=== PATIENT | female | born 1985 | race Two or more races ===

== ENCOUNTER 2020-04-06 14:09 | Outpatient (REF) | payer MEDICAID, SELFPAY | END 2020-04-06 14:10 | disposition home or self-care (01) | LOC: HO.LAB 14:09 | PROVIDERS: Visit Provider Internal Medicine | DX: Z20.828 Contact with and (suspected) exposure to other viral communicable diseases (principal) | CPT/HCPCS: C9803; U0003 ==

== ENCOUNTER → 2020-05-14 14:55 | Outpatient (BNVA) | payer MEDICAID, SELFPAY | PROVIDERS: PCP Internal Medicine Geriatric Medicine; Referring Provider Internal Medicine Geriatric Medicine; Visit Provider Obstetrics & Gynecology | DX: Z76.89 Persons encountering health services in other specified circumstances (principal) ==

== ENCOUNTER 2020-06-08 15:33 | Outpatient (REF) | payer MEDICAID, SELFPAY | END 2020-06-08 15:34 | disposition home or self-care (01) | LOC: HO.LAB 15:33 | PROVIDERS: PCP Internal Medicine Geriatric Medicine; Visit Provider Obstetrics & Gynecology | DX: R87.612 Low grade squamous intraepithelial lesion on cytologic smear of cervix (LGSIL) (principal) | CPT/HCPCS: 57454 ==

== ENCOUNTER 2021-01-04 15:08 | Outpatient (REF) | payer MEDICAID, SELFPAY ==
--- NOTE | ~2021-01-04 | XR_ITS ---
EXAMINATION: XR HAND, RIGHT CLINICAL INFORMATION: Pain in right hand COMPARISON: Right hand radiograph from 12/11/2017. TECHNIQUE: PA, lateral, and oblique views of the right hand. FINDINGS: No acute visible fracture or dislocation. Mild negative ulnar variance. Joint spaces and alignment are maintained. Soft tissues are unremarkable. XR/XR hand RT min 3V IMPRESSION: 1. No acute visible fracture or dislocation. 2. Mild negative ulnar variance.
== END 2021-01-04 15:09 | disposition home or self-care (01) ==
LOC: HO.XRAY 15:08
PROVIDERS: Absent Provider Internal Medicine Geriatric Medicine; PCP Internal Medicine Geriatric Medicine; Visit Provider Internal Medicine
DX: M79.641 Pain in right hand (principal)
CPT/HCPCS: 73130

== ENCOUNTER 2021-06-11 09:13 | Outpatient (REF) | payer OTHER, MEDICAID, SELFPAY ==
[2021-06-11 13:38] LABS: CT PCR NOT DETECTED (Not Detect.); NG PCR NOT DETECTED (Not Detect.)
[2021-06-12 09:10] LABS: BV Int Neg Control Negative (Negative); BV Int Pos Control Positive (Positive)
[2021-06-15 04:01] LABS: HPV 16 RNA NOT DETECTED (NOT DETECTED); HPV mRNA E6/E7 rflx Detected (Not Detected)
== END 2021-06-11 09:14 | disposition home or self-care (01) ==
LOC: HO.LAB 09:13
PROVIDERS: Visit Provider Advanced Practice Midwife
DX: Z01.411 Encounter for gynecological examination (general) (routine) with abnormal findings (principal); Z11.51 Encounter for screening for human papillomavirus (HPV); N89.8 Other specified noninflammatory disorders of vagina; Z20.2 Contact with and (suspected) exposure to infections with a predominantly sexual mode of transmission; R87.612 Low grade squamous intraepithelial lesion on cytologic smear of cervix (LGSIL)
CPT/HCPCS: 87480; 87491; 87510; 87591; 87624; 87625; 87660; 88142

== ENCOUNTER 2021-07-16 13:00 | Outpatient (REF) | payer OTHER, MEDICAID, SELFPAY | END 2021-07-16 13:01 | disposition home or self-care (01) | LOC: HO.LAB 13:00 | PROVIDERS: PCP Internal Medicine Geriatric Medicine; Visit Provider Obstetrics & Gynecology | DX: R87.612 Low grade squamous intraepithelial lesion on cytologic smear of cervix (LGSIL) (principal) | CPT/HCPCS: 57454; 88305; 88342; 88360 ==

== ENCOUNTER → 2021-07-31 14:55 | Outpatient (BNVA) | payer OTHER, MEDICAID, SELFPAY | PROVIDERS: Visit Provider Obstetrics & Gynecology ==

== ENCOUNTER → 2021-08-06 15:26 | Outpatient (BNVA) | payer OTHER, MEDICAID, SELFPAY | PROVIDERS: PCP Internal Medicine Geriatric Medicine; Visit Provider Obstetrics & Gynecology ==

== ENCOUNTER 2021-08-15 11:55 | Day surgery (SDC) | payer OTHER, MEDICAID, SELFPAY ==
[2021-08-09 14:39] VITALS: BMI 36.2
--- NOTE | 2021-08-14 09:43 | P.CONAN_ITS ---
Documented by User: Noni Yarbrough NP 08/14/21 09:44 HPI - Anesthesia Eval Consult details Narrative: 36yo F for LEEP PMFSH Active Problems Active Problems: All Active Problems (Updated 08/09/21 @ 14:38 by Felicia Marroquin RN) Encounter for annual routine gynecological examination (Acute) Vaginal discharge (Acute) LGSIL on Pap smear of cervix (Acute) DANIEL II (cervical intraepithelial neoplasia II) (Acute) LGSIL on Pap smear of cervix (Acute) Past Medical History Medical History (Updated 08/09/21 @ 14:38 by Felicia Marroquin RN) COVID-19 vaccine series completed History of COVID-19 LGSIL on Pap smear of cervix Migraine without aura Mild acid reflux Family History Family History Father Diabetes Mother CVD (cardiovascular disease) Arthritis Surgical History Surgical History (Updated 08/09/21 @ 14:33 by Felicia Marroquin RN) H/O tubal ligation History of sleeve gastrectomy Hx of cholecystectomy Hx of colposcopy with cervical biopsy Social History Social History Are you a primary director career services to a significant other at home: No Do you presently have visiting nurse or other home services: No Alcohol intake: never Patient Tobacco Use Status: Never used Tobacco Use of substances other than those prescribed or required for medical reasons: No Have you been hit, kicked, punched, or otherwise hurt by someone within the past year? If so, by whom?: No Are you DNR?: No Advance Directives: No Advance Directives Information Provided: Yes (brochure mailed) Advance Directives on File: No Recently lost weight without trying: No Eating poorly because of decreased appetite: No Nutrition Risks: No Nutritional Risk Patient : No FDLMP: 07/18/21 : No Poor oral hygiene: No Sexual orientation: Straight/Heterosexual Gender identity: Female Meds Allergies Allergy/AdvReac Type Severity Reaction Status Date / Time No Known Allergies Allergy Verified 08/15/21 13:01 [No Known Allergies*] Home Medications Medication Instructions Recorded Confirmed Last Taken Type amitriptyline 10 mg tablet 10 mg PO BEDTIME 05/14/20 08/09/21 Unknown History pantoprazole 40 mg tablet,delayed 40 mg PO DAILY 05/14/20 08/15/21 08/15/21 History release Exam Exam Date and Time: August 14, 2021 0943 Height,Weight and Vital Signs: Height 5 ft 2 in Weight 89.811 kg Assessment and Plan Assessment Anesthesia Assessment: Chart Reviewed Documented by User: Danya Edwards MD 08/15/21 13:19 PMF Past Medical History Medical History (Updated 08/09/21 @ 14:38 by Felicia Marroquin, LILLY) COVID-19 vaccine series completed History of COVID-19 LGSIL on Pap smear of cervix Migraine without aura Mild acid reflux Family History Family History Father Diabetes Mother CVD (cardiovascular disease) Arthritis Family history of problems with anesthesia: No Surgical History Surgical History (Updated 08/09/21 @ 14:33 by Felicia Marroquin RN) H/O tubal ligation History of sleeve gastrectomy Hx of cholecystectomy Hx of colposcopy with cervical biopsy History of Problems with Anesthesia: No Social History Social History Are you a primary director career services to a significant other at home: No Do you presently have visiting nurse or other home services: No Alcohol intake: never Patient Tobacco Use Status: Never used Tobacco Use of substances other than those prescribed or required for medical reasons: No Have you been hit, kicked, punched, or otherwise hurt by someone within the past year? If so, by whom?: No Are you DNR?: No Advance Directives: No Advance Directives Information Provided: Yes (brochure mailed) Advance Directives on File: No Recently lost weight without trying: No Eating poorly because of decreased appetite: No Nutrition Risks: No Nutritional Risk Patient : No FDLMP: 07/18/21 : No Poor oral hygiene: No Sexual orientation: Straight/Heterosexual Gender identity: Female Meds Allergies Allergy/AdvReac Type Severity Reaction Status Date / Time No Known Allergies Allergy Verified 08/15/21 13:01 [No Known Allergies*] Home Medications Medication Instructions Recorded Confirmed Last Taken Type amitriptyline 10 mg tablet 10 mg PO BEDTIME 05/14/20 08/09/21 Unknown History pantoprazole 40 mg tablet,delayed 40 mg PO DAILY 05/14/20 08/15/21 08/15/21 History release Exam Airway Mallampati Class: III TM Dist: >3cm Neck ROM: Full Assessment and Plan Assessment Anesthesia Assessment: Anesthesia Plan Discussed Final Anesthetic Review Family History of Problems with Anesthesia: No History of Problems with Anesthesia: No NPO: Yes ASA Class: II Final Preanesthetic Review: No Changes in Pt Med Stat, Meds/Allgs Chart Reviewed, Consent Obtained/Reviewed and Anes Risks/Benef Reviewed Patient Risk: Intermediate Procedure Risk: Low Anesthetic Plan Anesthetic Plan: GA Disposition: Standard PACU
[2021-08-15 12:34] VITALS: BP 117/73; PULSE 82; RESP 18; TEMP 36.7; O2SAT 99
[2021-08-15 12:38] LABS: UPreg QC Valid YES; Urine Pregnancy NEGATIVE (NEGATIVE)
[2021-08-15] MEDS: Lactated Ringers 1,000 ML 100 ML IVCONT (13:04)
--- NOTE | 2021-08-15 13:07 | MHC.SHP ---
Pre-Procedural Eval Section A Date of Service: 08/15/21 Section B Chief Complaint: Moderate cervical dysplasia Allergies: Allergies Allergy/AdvReac Type Severity Reaction Status Date / Time No Known Allergies Allergy Verified 08/15/21 13:01 [No Known Allergies*] Plan I have reviewed the history and physical and performed a pertinent physical examination on my patient. No changes have occurred unless specified.
--- NOTE | 2021-08-15 13:42 | P.BOP_ITS ---
Brief Operative Note Date of Service: 08/15/21 Pre-op diagnosis: DANIEL 2 with positive ECC Post-op diagnosis: same Procedure: LEEP CONE with post CONE ECC Surgeon: Quinton Eduardo MD Anesthesia: local and other (Paracervical block with MAC) Was an Floor Worker Transfer Bay used for this Procedure?: No Estimated blood loss (mL): 0 Pathology: other (Cervical cone, anterior cervical lip 2nd pass at 11 o'clock, post Cerv lip, Endocx, Post cone ECC) Condition: stable Disposition: other (Home)
--- NOTE | 2021-08-15 13:43 | W.PM.OPN ---
Operative Note Operative Note Date of Service: 05/11/20 Narrative: Preop diagnosis: DANIEL 2 with + ECC Operation: LEEP Cone with post cone ECC Post op diagnosis: same Anesthesia: paracervical block with MAC Complications: none Pathology: Cervical cone, 2nd pass Anterior cervical lip at 11:00 o'clock, and Posterior cervical lip with endocervix & post cone ECC QBL: minimal Procedure: The patient was put in the dorsal lithotomy position, was prepped and draped in the usual sterile fashion. A sterile speculum was inserted inside the patient vagina. Using Lugol solution the cervix with Dyed with Lugol solution to identifiy the abnormal demarcating line. 10 cc of Marcaine0.5% with epinephrine were given at 2,4 , 8, and 10 o'clock. Using a medium-size loop wire, the cervical cone was excised, this was followed by a 2nd pass anterior cervical lip at 11:00 o'clock, followed by the posterior cervical lip and endocervix, post cone ECC was done afterwards. Hemostasis was assured using cautery and Monsel solution. All instruments were taken out of the patient's vaginal cavity. the patient tolerated the procedure well and was discharged home with the following instructions: call if temperature is above 100.4, vaginal bleeding, abdominal pain or nausea or vomiting. Follow-up in the office in 2 weeks for postop visit
[2021-08-15 13:51] VITALS: BP 124/73; PULSE 91; RESP 16; TEMP 37.2; O2SAT 100
[2021-08-15 13:56] VITALS: BP 122/70; PULSE 87; RESP 16; O2SAT 100
[2021-08-15 14:01] VITALS: BP 122/70; PULSE 97; RESP 17; O2SAT 99
[2021-08-15 14:06] VITALS: BP 131/69; PULSE 94; RESP 18; O2SAT 99
[2021-08-15 14:21] VITALS: BP 125/72; PULSE 70; RESP 8; TEMP 36.4; O2SAT 100
== END 2021-08-15 14:43 | disposition home or self-care (01) ==
PROVIDERS: PCP Internal Medicine Geriatric Medicine; Visit Provider Obstetrics & Gynecology
PROC: 0UBC7ZZ Excision of Cervix, Via Natural or Artificial Opening (ICD-10-PCS; CPT 57522; principal; 2021-08-15 13:50)
DX: N87.1 Moderate cervical dysplasia (principal); Z86.16 Personal history of COVID-19; G43.909 Migraine, unspecified, not intractable, without status migrainosus; Z98.51 Tubal ligation status; Z98.84 Bariatric surgery status; Z79.899 Other long term (current) drug therapy
CPT/HCPCS: 57522; 81025; 88305; 88307; 88342; 88360; J1100; J1200; J2250; J2405; J3010

== ENCOUNTER → 2021-08-29 11:13 | Outpatient (BNVA) | payer OTHER, MEDICAID, SELFPAY | PROVIDERS: Visit Provider Obstetrics & Gynecology | DX: Z13.89 Encounter for screening for other disorder (principal) ==

== ENCOUNTER → 2021-09-09 14:58 | Outpatient (BNVA) | payer OTHER, MEDICAID, SELFPAY | PROVIDERS: PCP Internal Medicine Geriatric Medicine; Visit Provider Obstetrics & Gynecology | DX: Z13.89 Encounter for screening for other disorder (principal) ==

== ENCOUNTER 2021-09-13 11:48 | Day surgery (SDC) | payer OTHER, MEDICAID, SELFPAY ==
--- NOTE | 2021-09-12 08:52 | HO.ANESPROP2 ---
Documented by User: Noni Yarbrough NP 09/12/21 08:54 HPI - Anesthesia Eval Consult details Narrative: 36yo F for LEEP Cone with post ECC s/p LEEP 07/2021 with GA-LMA 4 PMFSH Active Problems Active Problems: All Active Problems (Updated 08/29/21 @ 12:08 by Quinton Eduardo MD) Encounter for annual routine gynecological examination (Acute) Vaginal discharge (Acute) LGSIL on Pap smear of cervix (Acute) DANIEL II (cervical intraepithelial neoplasia II) (Acute) LGSIL on Pap smear of cervix (Acute) Past Medical History Medical History COVID-19 vaccine series completed History of COVID-19 LGSIL on Pap smear of cervix Migraine without aura Mild acid reflux Family History Family History Father Diabetes Mother CVD (cardiovascular disease) Arthritis Family history of problems with anesthesia: No Surgical History Surgical History H/O tubal ligation History of sleeve gastrectomy Hx of cholecystectomy Hx of colposcopy with cervical biopsy History of Problems with Anesthesia: No Social History Social History Are you a primary critical care paramedic to a significant other at home: No Do you presently have visiting nurse or other home services: No Alcohol intake: never Patient Tobacco Use Status: Never used Tobacco Advance Directives: No Advance Directives Information Provided: Yes Sexual orientation: Straight/Heterosexual Gender identity: Female Meds Allergies Allergy/AdvReac Type Severity Reaction Status Date / Time No Known Allergies Allergy Verified 08/15/21 13:01 [No Known Allergies*] Home Medications Medication Instructions Recorded Confirmed Last Taken Type amitriptyline 10 mg tablet 10 mg PO BEDTIME 05/14/20 08/09/21 Unknown History pantoprazole 40 mg tablet,delayed 40 mg PO DAILY 05/14/20 08/15/21 08/15/21 History release Exam Exam Date and Time: September 12, 2021 0852 Assessment and Plan Assessment Anesthesia Assessment: Chart Reviewed Final Anesthetic Review Family History of Problems with Anesthesia: No History of Problems with Anesthesia: No Documented by User: Jadyn Estes MD 09/13/21 12:04 PMFSH Past Medical History Medical History COVID-19 vaccine series completed History of COVID-19 LGSIL on Pap smear of cervix Migraine without aura Mild acid reflux Family History Family History Father Diabetes Mother CVD (cardiovascular disease) Arthritis Surgical History Surgical History H/O tubal ligation History of sleeve gastrectomy Hx of cholecystectomy Hx of colposcopy with cervical biopsy Social History Social History Are you a primary critical care paramedic to a significant other at home: No Do you presently have visiting nurse or other home services: No Alcohol intake: never Patient Tobacco Use Status: Never used Tobacco Advance Directives: No Advance Directives Information Provided: Yes Sexual orientation: Straight/Heterosexual Gender identity: Female Meds Allergies Allergy/AdvReac Type Severity Reaction Status Date / Time No Known Allergies Allergy Verified 08/15/21 13:01 [No Known Allergies*] Home Medications Medication Instructions Recorded Confirmed Last Taken Type amitriptyline 10 mg tablet 10 mg PO BEDTIME 05/14/20 08/09/21 Unknown History pantoprazole 40 mg tablet,delayed 40 mg PO DAILY 05/14/20 08/15/21 08/15/21 History release Exam Airway Mallampati Class: II (Missing multiple teeth) TM Dist: >3cm Neck ROM: Full Heart: rrr Lungs: cta Assessment and Plan Assessment Anesthesia Assessment: Anesthesia Plan Discussed and Chart Reviewed Final Anesthetic Review NPO: Yes ASA Class: II Final Preanesthetic Review: No Changes in Pt Med Stat, Meds/Allgs Chart Reviewed and Consent Obtained/Reviewed Patient Risk: Intermediate Procedure Risk: Intermediate Anesthetic Plan Anesthetic Plan: GA Disposition: Standard PACU
[2021-09-13 11:58] VITALS: BMI 35.8
[2021-09-13 12:07] VITALS: BP 119/63; PULSE 87; RESP 18; TEMP 36.1; O2SAT 97
[2021-09-13 12:08] LABS: UPreg QC Valid YES; Urine Pregnancy NEGATIVE (NEGATIVE)
[2021-09-13] MEDS: Lactated Ringers 1,000 ML 100 ML IVCONT (12:40)
--- NOTE | 2021-09-13 12:49 | MHC.SHP ---
Pre-Procedural Eval Section A Date of Service: 09/13/21 The patient is an INPATIENT: No Changes since office visit: No Cold of Flu in the past 2 weeks, No New Medical Problems, No Changes in Medication and No Patient answered all questions The History & Physical has been completed within 30 days and I have reviewed it.: Yes Section B Chief Complaint: Moderate cervical dysplasia Allergies: Allergies Allergy/AdvReac Type Severity Reaction Status Date / Time No Known Allergies Allergy Verified 08/15/21 13:01 [No Known Allergies*] Plan Diagnosis/Plan: Unchanged I have reviewed the history and physical and performed a pertinent physical examination on my patient. No changes have occurred unless specified.
[2021-09-13 13:22] VITALS: BP 113/42; PULSE 92; RESP 16; TEMP 36.3; O2SAT 94
--- NOTE | 2021-09-13 13:22 | PM.OP ---
Brief Operative Note Date of Service: 09/13/21 Pre-op diagnosis: DANIEL 2 status post LEEP cone with positive margins Post-op diagnosis: same Procedure: Re-excision LEEP CONE with post CONE ECC Surgeon: Quinton Eduardo MD Anesthesia: local and other (Paracervical block) Was an Maxillofacial Prosthetics Dentist used for this Procedure?: No Estimated blood loss (mL): 0 Pathology: other (Ant+post Cerv lip, Endocx, Post cone ECC) Condition: stable Disposition: other (Home)
--- NOTE | 2021-09-13 13:23 | W.PM.OPN ---
Operative Note Operative Note Date of Service: 09/13/21 Narrative: Preop diagnosis: DANIEL 2 S post LEEP cone with positive margins Operation: Re-excision LEEP Cone with post cone ECC Post op diagnosis: same Anesthesia: paracervical block, mac Complications: none Pathology: Anterior and Posterior cervical lip with endocervix & post cone RCC QBL: minimal Procedure: The patient was put in the dorsal lithotomy position, was prepped and draped in the usual sterile fashion. A sterile speculum was inserted inside the patient vagina. Using Lugol solution the cervix with Dyed with Lugol solution to identifiy the abnormal demarcating line. 10 cc of Marcaine0.5% with epinephrine were given at 2,4 , 8, and 10 o'clock. Using a medium-size loop wire, the anterior cervical lip was excised followed by the posterior cervical lip and endocervix, post cone ECC was done afterwards. Hemostasis was assured using cautery and Monsel solution. All instruments were taken out of the patient's vaginal cavity. the patient tolerated the procedure well and was discharged home with the following instructions: call if temperature is above 100.4, vaginal bleeding, abdominal pain or nausea or vomiting. Follow-up in the office in 2 weeks for postop visit
[2021-09-13 13:27] VITALS: BP 101/65; O2SAT 96
[2021-09-13 13:32] VITALS: BP 108/69; PULSE 85; RESP 17; O2SAT 95
[2021-09-13 13:37] VITALS: BP 108/72; PULSE 84; RESP 16; O2SAT 96
[2021-09-13 13:52] VITALS: BP 113/75; PULSE 81; RESP 17; O2SAT 97
== END 2021-09-13 14:26 | disposition home or self-care (01) ==
PROVIDERS: PCP Internal Medicine Geriatric Medicine; Visit Provider Obstetrics & Gynecology
PROC: 0UBC7ZZ Excision of Cervix, Via Natural or Artificial Opening (ICD-10-PCS; CPT 57522; principal; 2021-09-13 15:00)
DX: N87.1 Moderate cervical dysplasia (principal); G43.009 Migraine without aura, not intractable, without status migrainosus; K21.9 Gastro-esophageal reflux disease without esophagitis; Z86.16 Personal history of COVID-19; Z98.51 Tubal ligation status; Z98.84 Bariatric surgery status; Z90.49 Acquired absence of other specified parts of digestive tract; Z79.899 Other long term (current) drug therapy
CPT/HCPCS: 57522; 81025; 88305; 88307; 88342; 88360; J1100; J2250; J2405; J3010

== ENCOUNTER → 2021-09-26 11:37 | Outpatient (BNVA) | payer OTHER, MEDICAID, SELFPAY | PROVIDERS: Visit Provider Obstetrics & Gynecology | DX: Z13.89 Encounter for screening for other disorder (principal) ==

== ENCOUNTER 2022-03-25 20:12 | Emergency (ER) | payer OTHER, MEDICAID, SELFPAY ==
[2022-03-25 20:18] VITALS: BP 128/70; PULSE 81; RESP 18; TEMP 36.2; BMI 37.5
--- NOTE | 2022-03-25 23:36 | ED_ITS ---
HPI - Skin/Abscess/Foreign Bdy General Chief complaint: Skin/Abscess/Foreign Body Stated complaint: Cyst Time Seen by Provider: 03/25/22 22:59 Source: patient Mode of arrival: ambulatory Limitations: no limitations History of Present Illness HPI narrative: Patient is a 36-year-old female presents to the emergency department for evaluation of pubic abscess. Onset 4 days ago. Initially popped and had pus- like drainage. Then became increasingly more painful, larger in size, and with surrounding redness. Reports a history of abscess in the past. Denies any additional skin lesions or wounds at this time. Denies fevers, chills, night sweats. Related Data Home Medications Medication Instructions Recorded Confirmed amitriptyline 10 mg tablet 10 mg PO BEDTIME 05/14/20 08/09/21 pantoprazole 40 mg tablet,delayed 40 mg PO DAILY 05/14/20 08/15/21 release Previous Rx's Medication Instructions Recorded metronidazole 500 mg tablet 500 mg PO BID 7 days #14 tabs 06/17/21 cephalexin 500 mg capsule 500 mg PO QID 7 days #28 caps 03/26/22 Allergies Allergy/AdvReac Type Severity Reaction Status Date / Time No Known Allergies Allergy Verified 08/15/21 13:01 [No Known Allergies*] Review of Systems Review of Systems: Constitutional :? Denies history of same, Denies any other sites involved, Denies IV drug use, Denies history of MRSA, Denies swollen glands, Denies injury, Denies Fever, Denies Chills, + Sig Pain, Denies Systemic symptoms Cardiovascular : No Chest Pain, No SOB Respiratory : No Dyspnea Gastrointestinal : No abdominal pain Musculoskeletal : No Joint Swelling Skin : + abscess with surrounding erythema, No skin laceration, No Foreign bodies, No spreading rash, Denies bites, Denies discharge, Neuro : No Weakness, No Numbness/tingling Psych : No SI/HI/thoughts of self injury Yes all other systems are reviewed and are negative PMFSH Past Medical History Attestation statement: The following information was validated with the patient. Source: old records reviewed Medical History COVID-19 vaccine series completed History of COVID-19 LGSIL on Pap smear of cervix Migraine without aura Mild acid reflux Surgical History H/O tubal ligation History of sleeve gastrectomy Hx of cholecystectomy Hx of colposcopy with cervical biopsy Family History Family History Father Diabetes Mother CVD (cardiovascular disease) Arthritis Social History Social History Are you a primary floor care specialist to a significant other at home: No Do you presently have visiting nurse or other home services: No Alcohol intake: never Patient Tobacco Use Status: Never used Tobacco Advance Directives: No Advance Directives Information Provided: No Sexual orientation: Straight/Heterosexual Gender identity: Female Physical Exam Vital Signs: Vital Signs: Last Vital Signs Temp 97.1 F 03/25/22 20:18 Pulse 81 03/25/22 20:18 Resp 18 03/25/22 20:18 BP 128/70 03/25/22 20:18 BMI result Body Mass Index 37.5 Appearance: Alert.?Oriented to person, place and time. No acute distress.?Normal affect. Neck: Normal inspection.? Neck supple.?? CVS: Heart sounds normal. Normal heart rate and rhythm.? Pulses normal.?? Respiratory: No respiratory distress.? Lung sounds clear to auscultation bilaterally?? Abdomen: Soft and non-tender. Normoactive bowel sounds. ? Skin: Skin warm and dry.? Normal skin color.? Positive abscess midline suprapubic region with significant surrounding erythema and warmth. Extremities: No lower extremity edema.? Neuro: Moves all extremities spontaneously. Sensation intact bilaterally. CN II- XII intact. No focal neuro deficits. Ambulates with normal steady gait. Course Course Course Narrative: Patient is a 36-year-old female presenting to the emergency department for evaluation of a cyst to suprapubic region. History physical exam consistent with abscess. No systemic toxicity, and patient is well-appearing. There is surrounding cellulitis. Not consistent with necrotizing fasciitis, myositis, DVT, osteomyelitis. Patient is now status post incision and drainage of abscess and tolerated the procedure well. No complications. No labs or imaging indicated at this time. Will discharge home with course of oral antibiotics and symptomatic treatment instructions. Discussed reasons to return to the emergency department, and follow-up with primary care provider. Patient agreeable with plan of care. Procedures Abscess I/D Site: other (Suprapubic region) Local Anesthetic: lidocaine 1% Amount of anesthesia used (mL): 3 Technique: incised with blade Irrigation: Yes Packing used?: none Discharge Plan Discharge Clinical Impression: Abscess of skin or subcutaneous tissue Patient Disposition: Home, Self-Care Instructions: Abscess (ED) Additional Instructions: As discussed, the area may continue to drain over the next few days. You have been given a new prescription for cephalexin, please complete this entire course of antibiotic. Return to emergency department any new or worsening symptoms or concerns. If you develop worsening redness, swelling, pain, pus-like discharge, fevers, chills this should be re-evaluated. Follow-up with your primary care provider as needed. Prescriptions: New cephalexin 500 mg capsule 500 mg PO QID 7 Days Qty: 28 0RF No Action metronidazole 500 mg tablet 500 mg PO BID 7 Days Qty: 14 0RF Rx Instructions: Take with food, Avoid alcohol and vinegar products amitriptyline 10 mg tablet 10 mg PO BEDTIME pantoprazole 40 mg tablet,delayed release (DR/EC) 40 mg PO DAILY Referrals: Name,[facility] [Primary Care Provider] -
[2022-03-26] VITALS: PULSE 68; RESP 18; O2SAT 98
[2022-03-26] MEDS: Lidocaine HCl 1 % MPF 5 ML VIAL SUBCUT (00:44)
[2022-03-26] MEDS: Lidocaine HCl 1 % MPF 2 ML VIAL 4 ML SUBCUT (00:45)
== END 2022-03-26 00:48 | disposition home or self-care (01) ==
PROVIDERS: Emergency Provider Emergency Medicine; PCP Internal Medicine Geriatric Medicine
DX: L02.214 Cutaneous abscess of groin (principal); Z79.899 Other long term (current) drug therapy
CPT/HCPCS: 10060; 99284

== ENCOUNTER 2022-03-27 13:33 | Outpatient (REF) | payer OTHER, MEDICAID, SELFPAY ==
[2022-04-02 19:57] LABS: HPV 16 RNA NOT DETECTED (NOT DETECTED); HPV mRNA E6/E7 rflx Detected (Not Detected)
== END 2022-03-27 13:34 | disposition home or self-care (01) ==
LOC: HO.LNP 13:33
PROVIDERS: Visit Provider Obstetrics & Gynecology
DX: Z12.4 Encounter for screening for malignant neoplasm of cervix (principal); Z11.51 Encounter for screening for human papillomavirus (HPV); N87.1 Moderate cervical dysplasia
CPT/HCPCS: 87624; 87625; 88142

== ENCOUNTER 2022-05-12 10:17 | Outpatient (REF) | payer OTHER, MEDICAID, SELFPAY | END 2022-05-12 10:18 | disposition home or self-care (01) | LOC: HO.LNP 10:17 | PROVIDERS: PCP Internal Medicine Geriatric Medicine; Visit Provider Obstetrics & Gynecology | DX: A63.0 Anogenital (venereal) warts (principal); Z32.02 Encounter for pregnancy test, result negative | CPT/HCPCS: 57456; 81025; 88305 ==

== ENCOUNTER → 2022-06-04 11:27 | Outpatient (BNVA) | payer OTHER, MEDICAID, SELFPAY | PROVIDERS: PCP Internal Medicine Geriatric Medicine; Visit Provider Obstetrics & Gynecology | DX: Z13.89 Encounter for screening for other disorder (principal) ==

== ENCOUNTER 2023-06-08 13:48 | Outpatient (REF) | payer OTHER, MEDICAID, SELFPAY ==
[2023-06-13 09:29] LABS: HPV mRNA E6/E7 rflx Not Detected (Not Detected)
== END 2023-06-08 13:49 | disposition home or self-care (01) ==
LOC: HO.LNP 13:48
PROVIDERS: PCP Internal Medicine Geriatric Medicine; Visit Provider Obstetrics & Gynecology
DX: Z01.419 Encounter for gynecological examination (general) (routine) without abnormal findings (principal); Z11.51 Encounter for screening for human papillomavirus (HPV)
CPT/HCPCS: 87624; 88142

== ENCOUNTER 2023-06-08 13:48 | Outpatient (AMB) | payer OTHER, MEDICAID, SELFPAY ==
--- NOTE | 2023-06-08 13:49 | MHC.OFFVIS ---
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 No complaints. Last Pap/HPV was negative/HPV positive, colpo negative/ECC negative [facility] Medical History DANIEL II (cervical intraepithelial neoplasia II) COVID-19 vaccine series completed History of COVID-19 Mild acid reflux Migraine without aura LGSIL on Pap smear of cervix Surgical History History of sleeve gastrectomy H/O tubal ligation Hx of colposcopy with cervical biopsy Hx of cholecystectomy Family History Father Diabetes Mother CVD (cardiovascular disease) Arthritis Social History Are you a primary lawn care professional to a significant other at home: No Do you presently have visiting nurse or other home services: No Alcohol intake: never Patient Tobacco Use Status: Never used Tobacco Sexual orientation: Straight/Heterosexual Gender identity: Female Review of Systems Const All systems reviewed & are unremarkable except as noted in HPI and below Card Reports as per HPI Resp Reports as per HPI GI Reports as per HPI and Reports no additional complaints Reports as per HPI Physical Exam Const General: cooperative, healthy appearing and comfortable Chest Chest palpation & inspection: normal inspection of the chest and normal palpation of entire chest wall Breast/axilla inspection: normal inspection of the breasts and normal inspection of the axillae Breast/axilla palpation: normal palpation of the breasts, normal palpation of the axillae and no axillary lymphadenopathy Resp Effort & Inspection: normal respiratory effort Auscultation: clear to auscultation bilaterally Percussion: percussion normal Cardio Palpation: normal PMI Rate: regular rate Rhythm: regular rhythm Heart sounds: no murmurs and no rubs Peripheral pulses: Peripheral pulses 2+ throughout GI Inspection: Yes normal to inspection Palpation (GI): Soft to palpation, nontender, no guarding, not rigid and No hepatosplenomegaly present Percussion: Yes normal to percussion Auscultation: normal bowel sounds Rectal Exam - Female: deferred General: Yes bladder normal to palpation External Female Exam: No lesion Speculum Exam - Vagina: normal appearance of the vagina, normal palpation, normal vaginal discharge and not erythematous Speculum Exam - Cervix: normal appearance of the cervix and normal palpation Bimanual exam- vagina & uterus: normal bimanual exam, normal palpation, uterine size normal, bladder normal to palpation, consistency normal and normal palpation Bimanual Exam- Adnexa, other: normal adnexae, no masses and no tenderness Assessment & Plan Assessment & Plan (1) Well woman exam: Comment: History of DANIEL 2 in 2021 status post LEEP cone Code(s): Z01.419 - Encounter for gynecological examination (general) (routine) without abnormal findings Plan: Cotesting done. Counseled the patient about the recommended dietary allowance of 1000 mg of Calcium & 600 IU of vitamin D. The patient was instructed to perform monthly self-breast exams and to schedule an annual exam in a year; All questions answered and the patient verbalized understanding. Instructed the patient to schedule annual exam in a year Coding Level of Care Code Est Pt Prev Care [id number]([id number]) Diagnoses Well woman exam Z01.419
[2023-06-08 13:50] VITALS: BP 120/74; PULSE 96
== END 2023-06-08 14:35 | disposition home or self-care (01) ==
LOC: HO.HWS 13:48
PROVIDERS: PCP Internal Medicine Geriatric Medicine; Visit Provider Obstetrics & Gynecology
DX: Z01.419 Encounter for gynecological examination (general) (routine) without abnormal findings (principal)
CPT/HCPCS: 99395

== ENCOUNTER 2023-06-13 09:33 | Outpatient (REF) | payer OTHER, MEDICAID, SELFPAY ==
[2023-06-13 10:22] LABS: Estimated Average Glucose 105 mg/dL; Hemoglobin A1c % 5.3 % (<6.0)
[2023-06-13 10:51] LABS: Alanine Aminotransferase 13 U/L (0-31); Albumin Level 4.1 g/dL (3.5-5.0); Alkaline Phosphatase 82 U/L (39-117); Anion Gap 14 (12-20); Aspartate Amino Transferase 15 U/L (5-31); Blood Urea Nitrogen 8 mg/dL (9-16); Calcium 9.3 mg/dL (8.4-10.2); Carbon Dioxide 26 mmol/L (22-29); Chloride 106 mmol/L (96-108); Cholesterol 141 mg/dL (<200); Estimated Glomerular Filt Rate > 60; Glucose Random 86 mg/dL (60-115); HDL Cholesterol 52 mg/dL (>40); LDL Cholesterol Calculated 79 mg/dL (<100); Potassium 3.7 mmol/L (3.3-5.1); Sodium 142 mmol/L (135-145); Total Protein 7.5 g/dL (6.5-8.0); Triglycerides 52 mg/dL (<150)
[2023-06-14 05:04] LABS: ~HepC Num1 0.13 S/CO (0.00-0.79); ~Hepatitis C Antibody Nonreactive (Nonreactive)
== END 2023-06-13 09:34 | disposition home or self-care (01) ==
LOC: HO.LAB 09:33
PROVIDERS: PCP Internal Medicine Geriatric Medicine; Visit Provider Internal Medicine Geriatric Medicine
DX: Z11.59 Encounter for screening for other viral diseases (principal); Z13.1 Encounter for screening for diabetes mellitus; Z13.220 Encounter for screening for lipoid disorders
CPT/HCPCS: 36415; 80053; 80061; 83036; 86803

== ENCOUNTER 2023-11-12 20:26 | Emergency (ER) | payer OTHER, MEDICAID, SELFPAY ==
[2023-11-12 20:59] VITALS: BP 124/62; PULSE 89; RESP 16; TEMP 36.5; BMI 37.9
--- NOTE | 2023-11-12 20:59 | ED_ITS ---
HPI - Skin/Abscess/Foreign Bdy General Chief complaint: Skin/Abscess/Foreign Body Stated complaint: right armpit cyst? Time Seen by Provider: 11/13/23 00:50 Source: patient Mode of arrival: ambulatory Limitations: no limitations History of Present Illness ED Provider: Dr. Doris Mullen HPI narrative: Patient comes to the emergency room complaining of an abscess just below the right armpit. Patient states it has been about 5 days since she noticed a large pimple that has gradually been getting bigger. Patient states that she tried poking it with a needle and tried to drain it herself. Patient states that it has been getting bigger and more painful since then, no longer draining. Denies fever chills. Patient states that she has had multiple abscesses throughout her body. Related Data Home Medications ?Medication ?Instructions ?Recorded ?Confirmed pantoprazole 40 mg tablet,delayed 40 mg PO DAILY 05/14/20 08/15/21 release cholecalciferol (vitamin D3) 25 25 mcg PO QAM 06/08/23 mcg (1,000 unit) capsule (Vitamin D3) phentermine 15 mg capsule 15 mg PO DAILY 06/08/23 Previous Rx's ?Medication ?Instructions ?Recorded metronidazole 500 mg tablet 500 mg PO BID 7 days #14 tabs 06/17/21 oxycodone 5 mg tablet 5 mg PO BID PRN pain #4 tabs 11/13/23 sulfamethoxazole 800 1 tab PO BID #14 tabs 11/13/23 mg-trimethoprim 160 mg tablet (Bactrim DS) Allergies Allergy/AdvReac Type Severity Reaction Status Date / Time No Known Allergies Allergy Verified 11/12/23 21:00 [No Known Allergies*] Review of Systems 2 Review of Systems: Constitutional : No Weight loss, No Fever, No Chills, No Night Sweats, No Fatigue, No Malaise ENT/Mouth : No Hearing loss, No Ear Pain, No Nasal Congestion, No Sinus Pain, No Hoarseness, No sore throat, No Rhinorrhea, No Swallowing Difficulty Eyes: No Eye Pain, No Swelling, No Redness, No Foreign Body, No Discharge, No Vision Changes Cardiovascular : No Chest Pain, No SOB, No Dyspnea on Exertion, No Orthopnea, No Edema, No Palpitations Respiratory : No Cough, No Sputum, No Wheezing, No Smoke Exposure, No Dyspnea Gastrointestinal : No Nausea, No Vomiting, No Diarrhea, No Constipation, No abdominal Pain, No Hematochezia, No Melena Genitourinary : no irregular bleeding, No Dysuria, No Urinary Frequency, No Hematuria, No Urinary Incontinence, No Urgency, No Flank Pain, No Urinary Flow Changes, No Hesitancy Musculoskeletal : No joint pain, No Myalgias, No Joint Swelling Skin : No Skin Lesions, No rash laying of an abscess to the right arm pit Neuro : No Weakness, No Numbness, No Paresthesias, No Loss of Consciousness, No Dizziness, No Headache Psych : No Anxiety/Panic, No Depression, No SI/HI/AH/VH, No Social Issues, Heme/Lymph: No Bruising, No Bleeding,No Lymphadenopathy Endocrine : No Polyuria, No Polydipsia, No Temperature Intolerance [facility] Past Medical History Medical History DANIEL II (cervical intraepithelial neoplasia II) COVID-19 vaccine series completed History of COVID-19 Mild acid reflux Migraine without aura LGSIL on Pap smear of cervix Surgical History History of sleeve gastrectomy H/O tubal ligation Hx of colposcopy with cervical biopsy Hx of cholecystectomy Family History Family History Father Diabetes Mother CVD (cardiovascular disease) Arthritis Social History Social History Are you a primary aged or disabled care worker to a significant other at home: No Do you presently have visiting nurse or other home services: No Alcohol intake: never Patient Tobacco Use Status: Never used Tobacco Smoked in Last 30 Days: No Advance Directives: No Advance Directives Information Provided: Yes Do you have a plan to hurt others: No Plan Patient : No Sexual orientation: Straight/Heterosexual Gender identity: Female Physical Exam 2 Vital Signs: Vital Signs: Last Vital Signs Temp 98.1 F 11/13/23 00:05 Pulse 83 11/13/23 00:05 Resp 16 11/13/23 00:05 BP 119/79 11/13/23 00:05 Pulse Ox 99 11/13/23 00:05 O2 Del Method Room Air 11/13/23 00:05 BMI result Body Mass Index 37.9 Const: Other: Appearance: Alert. Oriented X3. No acute distress. Eyes: Pupils equal, round and reactive to light. ENT: Pharynx normal. Neck: Normal inspection. Neck supple. No lymph nodes noted. No crepitus CVS: Normal heart rate and rhythm. Pulses normal. Normal S1 and S2 Respiratory: No respiratory distress. Breath sounds normal. No Wheezing. No rales Abdomen: Soft and nontender. No rigidity. No distention. Skin: Skin warm and dry. Patient has a 4 cm x 4 cm fluctuant abscess to right underneath the right axilla Extremities: No lower extremity edema. No Lacerations. No Rash Neuro: Oriented X 3. No motor deficit. No sensory deficit. Moving all extremities. No slurred speech. CN 2 through 12 grossly intact Psych: calm, cooperative, normal affect Course Course Course Narrative: This is an RME: Additional HPI, ROS, PE not included below will be deferred to primary provider. RME assessment and note performed by: Laxmi Andrews PA-C This is a [id number] who presents to the ER with complaints of right arm abscess x 1 week. Hx of similar but never this big. TTP overlying R axilla with 6cm x 6cm area of fluctuance, induration and warmth, likely needing I&D, Plan: Labs, +/- I&D Medications Administered Discontinued Medications Generic Name Dose Route Start Last Admin Trade Name Freq PRN Reason Stop Dose Admin Lidocaine HCl 30 ml 11/13/23 00:55 11/13/23 01:01 Lidocaine Hcl 1 % 10 Ml Vial INFILTRATI 11/13/23 00:56 30 ml ONCE ONE Administration Oxycodone HCl 5 mg 11/13/23 00:54 11/13/23 01:00 Oxycodone Hcl Immed Release 5 Mg Tablet PO 11/13/23 00:55 5 mg ONCE ONE Administration Trimethoprim/Sulfamethoxazole 1 tab 11/13/23 00:55 11/13/23 01:00 Sulfamethox/Trimeth 800/160 Tablet PO 11/13/23 00:56 1 tab ONCE ONE Administration Medical Decision Making Medical Decision Making [facility] Narrative: -I discussed with the patient that the abscess will need incision and drainage, patient agreeable -patient was given p.o. oxycodone and Bactrim Lab Data 11/12/23 21:12 11/12/23 21:12 Labs: Lab Results 11/12/23 Range/Units 21:12 WBC 12.6 H (4.8-10.8) X10*3/uL RBC 4.85 (4.20-5.50) X10*6/uL Hgb 10.9 L (12.0-16.0) g/dl Hct 33.5 L (37.0-47.0) % MCV 69.1 L (80.0-98.0) fL MCH 22.5 L (27.0-33.0) pg MCHC 32.5 (31.0-35.0) g/dl RDW 18.2 H (11.0-16.0) % Plt Count 301 (160-400) X10*3/uL MPV 10.0 (9.4-12.3) fL Immature Gran % (Auto) 0.3 (0.0-0.4) % Neut % (Auto) 62.6 (45-73) % Lymph % (Auto) 26.0 (20-40) % [place] % (Auto) 8.9 (2-11) % Eos % (Auto) 2.0 (0-4) % Baso % (Auto) 0.2 (0-2) % Lymph # (Auto) 3.3 (1.2-4.9) X10*3/uL [place] # (Auto) 1.1 (0.1-1.2) X10*3/uL Eos # (Auto) 0.3 (0.0-0.4) X10*3/uL Baso # (Auto) 0.0 (0.0-0.2) X10*3/uL Abs Immat Gran (auto) 0.04 H (0.00-0.03) X10*3/uL Absolute Neuts (auto) 7.9 (2.0-8.3) x10*3/uL Absolute Nucleated RBC 0.000 (0.0-0.012) X10*3/uL Nucleated RBC % (auto) 0.0 (0.0-0.2) /100WBC ESR 28 H (0-20) MM/HR Sodium 142 (135-145) mmol/L Potassium 3.7 (3.3-5.1) mmol/L Chloride 106 (96-108) mmol/L Carbon Dioxide 27 (22-29) mmol/L Anion Gap 13 (12-20) BUN 8 L (9-16) mg/dL Creatinine 0.87 (0.5-1.4) mg/dL Estim Creat Clear Calc 93.6 Estimated GFR > 60 Random Glucose 97 (60-115) mg/dL Calcium 9.6 (8.4-10.2) mg/dL Total Bilirubin 0.4 (0.0-1.0) mg/dL AST 17 (5-31) U/L ALT 17 (0-31) U/L Alkaline Phosphatase 86 (39-117) U/L C-Reactive Protein 1.89 H (< or = 0.50) mg/dL Total Protein 7.4 (6.5-8.0) g/dL Albumin 4.0 (3.5-5.0) g/dL Procedures Abscess I/D Site: upper extremity (Axilla) Side (if applicable): right Local Anesthetic: lidocaine 1% Amount of anesthesia used (mL): 10 Technique: incised with blade Amount of fluid expressed (mL): 6 Sent for culture/gram staining?: No Irrigation: No Packing used?: iodoform Discharge Plan Discharge Clinical Impression: Abscess Patient Disposition: Home, Self-Care Instructions: Abscess (ED), Abscess Incision and Drainage (DC) Additional Instructions: In 2 days, please follow-up with your primary care physician or urgent care or please come back to emergency room for a wound check and packing removal. Please follow-up with your primary care physician tomorrow. If you have any worsening or new symptoms, please return to the emergency room or call 911 Prescriptions: New sulfamethoxazole-trimethoprim [Bactrim DS] 800-160 mg tablet 1 tab PO BID Qty: 14 0RF oxycodone 5 mg tablet 5 mg PO BID PRN (Reason: pain) Qty: 4 0RF Rx Instructions: Partial Fill upon patient request. No Action metronidazole 500 mg tablet 500 mg PO BID 7 Days Qty: 14 0RF Rx Instructions: Take with food, Avoid alcohol and vinegar products pantoprazole 40 mg tablet,delayed release (DR/EC) 40 mg PO DAILY phentermine 15 mg capsule 15 mg PO DAILY cholecalciferol (vitamin D3) [Vitamin D3] 25 mcg (1,000 unit) capsule 25 mcg PO QAM Stand Alone Forms: Work/School Release Print Language: Egyptian
[2023-11-12 21:16] LABS: MANUAL DIFF FLAG NO
[2023-11-12 21:18] LABS: Basophils Percent Auto 0.2 % (0-2); Eosinophils Absolute Auto 0.3 X10*3/uL (0.0-0.4); Hematocrit 33.5 % (37.0-47.0); Hemoglobin 10.9 g/dl (12.0-16.0); Imm Gran Abs Auto 0.04 X10*3/uL (0.00-0.03); Imm Gran Pct Auto 0.3 % (0.0-0.4); Lymphocytes Absolute Auto 3.3 X10*3/uL (1.2-4.9); Mean Corpuscular HGB Conc 32.5 g/dl (31.0-35.0); Mean Corpuscular Hemoglobin 22.5 pg (27.0-33.0); Mean Corpuscular Volume 69.1 fL (80.0-98.0); Monocytes Absolute Auto 1.1 X10*3/uL (0.1-1.2); Monocytes Percent Auto 8.9 % (2-11); Neutrophils Absolute Auto 7.9 x10*3/uL (2.0-8.3); Neutrophils Percent Auto 62.6 % (45-73); Platelet Count 301 X10*3/uL (160-400); Red Blood Count 4.85 X10*6/uL (4.20-5.50); Red Cell Distribution Width 18.2 % (11.0-16.0); White Blood Count 12.6 X10*3/uL (4.8-10.8)
[2023-11-12 21:39] LABS: Alanine Aminotransferase 17 U/L (0-31); Alkaline Phosphatase 86 U/L (39-117); Anion Gap 13 (12-20); Aspartate Amino Transferase 17 U/L (5-31); Bilirubin Total 0.4 mg/dL (0.0-1.0); Blood Urea Nitrogen 8 mg/dL (9-16); C Reactive Protein 1.89 mg/dL (< or = 0.50); Calcium 9.6 mg/dL (8.4-10.2); Carbon Dioxide 27 mmol/L (22-29); Chloride 106 mmol/L (96-108); Creatinine Clr Calc Pharmacy 93.6; Estimated Glomerular Filt Rate > 60; Glucose Random 97 mg/dL (60-115); Potassium 3.7 mmol/L (3.3-5.1); Sodium 142 mmol/L (135-145); Total Protein 7.4 g/dL (6.5-8.0)
[2023-11-12 22:11] LABS: Erythrocyte Sedimentation Rate 28 MM/HR (0-20)
[2023-11-13 00:05] VITALS: BP 119/79; PULSE 83; RESP 16; TEMP 36.7; O2SAT 99
[2023-11-13] MEDS: oxyCODONE HCl Immed Release 5 MG TABLET PO (01:00)
[2023-11-13] MEDS: Sulfamethox/Trimeth 800/160 TABLET 1 TAB PO (01:00)
[2023-11-13] MEDS: Lidocaine HCl 1 % 10 ML VIAL 30 ML INFILTRATI (01:01)
[2023-11-13 01:27] VITALS: BP 127/77; PULSE 84; RESP 16; TEMP 36.7; O2SAT 99
== END 2023-11-13 01:48 | disposition home or self-care (01) ==
PROVIDERS: Physician Assistant Medical; Emergency Provider Emergency Medicine; PCP Internal Medicine Geriatric Medicine
DX: L02.411 Cutaneous abscess of right axilla (principal); Z79.899 Other long term (current) drug therapy
CPT/HCPCS: 10060; 36415; 80053; 85025; 85652; 86140; 99284

== ENCOUNTER 2024-04-19 10:59 | Outpatient (REF) | payer OTHER, MEDICAID, SELFPAY ==
[2024-04-19 13:14] LABS: MANUAL DIFF FLAG NO
[2024-04-19 13:55] LABS: Basophils Absolute Auto 0.1 X10*3/uL (0.0-0.2); Basophils Percent Auto 0.6 % (0-2); Eosinophils Absolute Auto 0.2 X10*3/uL (0.0-0.4); Eosinophils Percent Auto 2.9 % (0-4); Hematocrit 33.4 % (37.0-47.0); Hemoglobin 10.4 g/dl (12.0-16.0); Imm Gran Abs Auto 0.02 X10*3/uL (0.00-0.03); Imm Gran Pct Auto 0.2 % (0.0-0.4); Lymphocytes Absolute Auto 2.3 X10*3/uL (1.2-4.9); Lymphocytes Percent Auto 27.4 % (20-40); Mean Corpuscular HGB Conc 31.1 g/dl (31.0-35.0); Mean Corpuscular Hemoglobin 21.4 pg (27.0-33.0); Mean Corpuscular Volume 68.6 fL (80.0-98.0); Mean Platelet Volume 10.7 fL (9.4-12.3); Monocytes Absolute Auto 0.9 X10*3/uL (0.1-1.2); Monocytes Percent Auto 10.6 % (2-11); Neutrophils Absolute Auto 4.8 x10*3/uL (2.0-8.3); Neutrophils Percent Auto 58.3 % (45-73); Platelet Count 341 X10*3/uL (160-400); Red Blood Count 4.87 X10*6/uL (4.20-5.50); Red Cell Distribution Width 18.4 % (11.0-16.0); White Blood Count 8.2 X10*3/uL (4.8-10.8)
[2024-04-19 14:28] LABS: Iron 30 mcg/dL (30-160); Percent Iron Saturation 9 % (15-50); Total Iron Binding Capacity 346 mcg/dL (228-428); Unsaturated Iron Binding 316 ug/dL
[2024-04-19 14:38] LABS: Ferritin 9 ng/mL (10-122)
== END 2024-04-19 11:00 | disposition home or self-care (01) ==
LOC: HO.HHCL 10:59
PROVIDERS: Visit Provider Internal Medicine Geriatric Medicine
DX: D64.9 Anemia, unspecified (principal)
CPT/HCPCS: 36415; 82728; 83540; 85025

== ENCOUNTER 2024-07-08 11:05 | Outpatient (REF) | payer OTHER, MEDICAID, SELFPAY ==
--- OUTSIDE RECORDS SUMMARY | 2024-07-08 12:33 | XMS_ITS | Encounter Summary ---
Author Organization [email or web address] Address [address] [facility] 7 [place] [address] Care Team Providers Care Skin Lifter Bacon Name Role Phone NameLive MD Primary Care Provider [phone] Reason for Visit * Reason Comments Med Change Request Encounter Details Date Type Department Care Team ([facility] st Contact Info) Description 10/01/2022 Refill [facility] [address] [place] [address] Name, MD Live [address] [place] [address] Social History Tobacco Use Types Packs/Day Years Used Date Smoking Tobacco: Never Smokeless Tobacco: Never PHQ-2 Answer Date Recorded Patient Health Questionnaire-2 Score 0 06/03/2022 Depression Answer Date Recorded Patient Health Questionnaire-2 Score 0 06/03/2022 Comments Unknown Sex and Gender Information Value Date Recorded Sex Assigned at Female 03/31/2022 10:21 AM EDT Legal Sex Female 10:21 AM EDT Gender Identity Female 03/31/2022 10:21 AM EDT Sexual Orientation Straight 03/31/2022 10 :21 AM EDT COVID-19 Exposure Response Date Recorded In the last 10 days, have yo u been in contact with someone who was confirmed or suspected to have Coronavirus/COVID-19? No / Unsure 10/01/2022 10:33 AM EDT documented as of this encounter Miscellaneous Notes * Telephone Encounter - Live Mcknight MD - 10/01/2022 12:39 PM EDT I changed the formulation of the vit D already, thanks documented in this encounter Plan of Treatment Upcoming Encounters Date Type Department Care Team (Late st Contact Info) Description 07/14/2024 9:15 AM EST Office Visit [facility] [address] [place] [phone] Name, MD Live [address] [place] [address] documented as of this encounter Visit Diagnoses Not on filedocumented in this encounter Care Teams Skin Lifter Bacon Relationship Specialty Start Date End Date Name, MD Live [address] [place] [phone] PCP - General Family Medicine 01/19/17 documented as of this encounter
--- OUTSIDE RECORDS SUMMARY | 2024-07-08 12:33 | XMS_ITS | Encounter Summary ---
Author Organization [employer] Address [address] [facility] 7t [place] [address] Care Team Providers Care Used Car Lot Attendant Name Role Phone Name, Live WHITFIELD Primary Care Provider [phone] Reason for Visit * Reason Onset Date Comments Med Refill 08/18/2023 Encounter Details Date Type Department Care Team ([facility] st Contact Info) Description 08/18/2023 Refill [facility] [address] [place] [address] Name, MD Live [address] [place] [address] Social History Tobacco Use Types Packs/Day Years Used Date Smoking Tobacco: Never Smokeless Tobacco: Never Alcohol Use Standard Drinks/Week Comments Never 0 (1 standard drink = 0.6 oz pur e alcohol) Depression Answer Date Recorded Patient Health Questionnaire-9 Score 0 06/10/2023 Patient Health Questionnaire-9 Score 0 06/10/2023 Last PHQ-9: Questionnaire Data Not on file 0 06/10/2023 Housing Stability Answer Date Recorded What is your housing situation today? I have missy fernandez 06/10/[address] you li ve. Do you have problems with any of the following? None of the above 06/10/2023 Food Insecurity Answer Date Recorded Within the past 12 months, y ou worried that your food would run out before you got money to buy more: Never True 06/10/2023 Within the past 12 months,th e food you bought just didn't last and you didn't have enough money to get more: Never True 03/2024 Transportation Answer Date Recorded In the past 12 months, has l ack of transportation kept you from medical appts, meetings, work or from getting things needed for daily living? No 06/10/2023 Utilities Answer Date Recorded In the past 12 months, has t he electric, gas, oil or water company threatened to shut off services in your home? No 06/10/2023 Depression Answer Date Recorded Patient Health Questionnaire-2 Score 0 06/10/2023 Comments Unknown Sex and Gender Information Value Date Recorded Sex Assigned at Female 03/31/2022 10:21 AM EDT Legal Sex Female 10:21 AM EDT Gender Identity Female 03/31/2022 10:21 AM EDT Sexual Orientation Straight 03/31/2022 10 :21 AM EDT documented as of this encounter Plan of Treatment Upcoming Encounters Date Type Department Care Team (Late st Contact Info) Description 07/14/2024 9:15 AM EST Office Visit [facility] [address] [place] [phone] Name, MD Live [address] [place] [address] documented as of this encounter Visit Diagnoses Not on filedocumented in this encounter Additional Health Concerns Assessment Noted Time PHQ-9 Depression Total Score: 0 06/10/19 24 9:52 AM EST documented as of this encounter Care Teams Used Car Lot Attendant Relationship Specialty Start Date End Date Name, MD Live [address] [place] [phone] PCP - General Family Medicine 01/19/17 documented as of this encounter
--- OUTSIDE RECORDS SUMMARY | 2024-07-08 12:33 | XMS_ITS | Encounter Summary ---
Author Organization [employer] Address [address] [facility] 7t [place] [address] Care Team Providers Care Depot Agent Name Role Phone Name, Live WHITFIELD Primary Care Provider [phone] Reason for Visit * Reason Onset Date Comments Lorene TORIBIO 10/15/2023 Encounter Details Date Type Department Care Team ([facility] st Contact Info) Description 10/15/2023 Telephone [facility] [address] [place] [address] Name, MD Live [address] [place] [address] Lorene TORIBIO Social History Tobacco Use Types Packs/Day Years [...] encounter Miscellaneous Notes * Telephone Encounter - Dolores Short - 10/15/2023 4:35 PM EDT Tc from [facility] with [facility] calling to inform medication Wegovy has been denied by insurance. documented in this encounter Plan of Treatment Upcoming Encounters Date Type Department Care Team (Late st Contact Info) Description 07/14/2024 9:15 AM EST Office Visit [facility] MED[facility]INE [address] [place] [address] Name, MD Live [address] [place] [address] documented as of this encounter Visit Diagnoses Not on filedocumented in this encounter Additional Health Concerns Assessment Noted Time PHQ-9 Depression Total Score: 0 06/10/19 24 9:52 AM EST documented as of this encounter Care Teams Depot Agent Relationship Specialty Start Date End Date Name, MD Live [address] [place] [phone] PCP - General Family Medicine 01/19/17 documented as of this encounter
--- OUTSIDE RECORDS SUMMARY | 2024-07-08 12:33 | XMS_ITS | Encounter Summary ---
Author Organization [employer] Address [address] [facility] [address] 7t [place] [address] Care Team Providers Care Turpentiner Name Role Phone Name, Live WHITFIELD Primary Care Provider [phone] Encounter Details Date Type Department Care Team ([facility] st Contact Info) Description 04/10/2023 Abstract [facility] ADULT DENTAL [address] [place] [address] Fortino Self DDS [address] [place] [address] Social History Tobacco Use Types Packs/Day Years Used Date Smoking Tobacco: Never Smokeless Tobacco: Never Alcohol Use Standard Drinks/Week Comments Never 0 (1 standard drink = 0.6 oz pur e alcohol) PHQ-2 Answer Date Recorded Patient Health Questionnaire-2 Score 0 06/03/2022 Housing Stability Answer Date Recorded What is your housing situation today? I have missy fernandez 03/23/[address] you li ve. Do you have problems with any of the following? None of the above 03/23/2023 Food Insecurity Answer Date Recorded Within the past 12 months, y ou worried that your food would run out before you got money to buy more: Never True 03/23/2023 Within the past 12 months,th e food you bought just didn't last and you didn't have enough money to get more: Never True Transportation Answer Date Recorded In the past 12 months, has l ack of transportation kept you from medical appts, meetings, work or from getting things needed for daily living? No 03/23/2023 Utilities Answer Date Recorded In the past 12 months, has t he electric, gas, oil or water company threatened to shut off services in your home? No 03/23/2023 Depression Answer Date Recorded Patient Health Questionnaire-2 [...] Description 07/14/2024 9:15 AM EST Office Visit [facility] [address] [place] [phone] NameLive MD [address] [place] [address] documented as of this encounter Visit Diagnoses Not on filedocumented in this encounter Care Teams Turpentiner Relationship Specialty Start Date End Date NameLive MD [address] [place] [address] PCP - General Family Medicine 01/19/17 documented as of this encounter
--- OUTSIDE RECORDS SUMMARY | 2024-07-08 12:33 | XMS_ITS | Encounter Summary ---
Author Organization [employer] [facility] Address [address] [place] [address] 7 [place] [address] Care Team Providers Care Plating Machine Operator Name Role Phone Name, Live WHITFIELD Primary Care Provider [phone] Encounter Details Date Type Department Care Team (Late st Contact Info) Description 12/15/2022 Abstract [facility] [address] [place] [phone] NameLive MD [address] [place] [address] [phone] Social History Tobacco Use Types Packs/Day Years [...] Description 07/14/2024 9:15 AM EST Office Visit [facility] [address] [place] [address] [phone] Live Mcknight MD [address] [place] [address] [phone] documented as of this encounter Procedures Procedure Name Priority Date/Time Associated Diagnosis Comments COLPOSCOPY Routine 05/13/2022 12:00 AM EST documented in this encounter Results * Colposcopy (05/13/2022 12:00 AM EST) us Historical Provider IN CLINIC/BEDSIDE ORDERAB LES Final Result documented in this encounter Visit Diagnoses Not on filedocumented in this encounter Care Teams Plating Machine Operator Relationship Specialty Start Date End Date Name, MD Live [address] [place] [phone] PCP - General Family Medicine 01/19/17 documented as of this encounter
--- OUTSIDE RECORDS SUMMARY | 2024-07-08 12:33 | XMS_ITS | Encounter Summary ---
Author Organization [employer] [facility] Address [address] [place] [address] 7 [place] [address] Care Team Providers Care Investment Strategist Name Role Phone Name, Live WHITFIELD Primary Care Provider [phone] Encounter Details Date Type Department Care Team (Latest Contact Info) Description 07/19/2019 Abstract [facility] CONVERSIONS Dental, Provider, DDS Social History Tobacco Use Types Packs/Day Years Used Date Smoking Tobacco: Never Assessed Comments Unknown Sex and Gender Information Value [...] 07/14/2024 9:15 AM EST Office Visit [facility] MEDICINE [address] [place] [address] NameLive MD [address] [place] [address] documented as of this encounter Visit Diagnoses Not on filedocumented in this encounter Care Teams Investment Strategist Relationship Specialty Start Date End Date Live Mcknight MD [address] [place] [address] PCP - General Family Medicine 01/19/17 documented as of this encounter
--- OUTSIDE RECORDS SUMMARY | 2024-07-08 12:33 | XMS_ITS | Encounter Summary ---
Author Organization [employer] Address [address] [facility] 7t [place] [address] Care Team Providers Care Herb Doctor Name Role Phone Name, Live WHITFIELD Primary Care Provider [phone] Reason for Visit * Reason Onset Date Comments Med Refill 10/06/2023 Encounter Details Date Type Department Care Team ([facility] st Contact Info) Description 10/06/2023 Refill [facility] [address] [place] [address] [phone] Name, MD Live [address] [place] [address] Social History Tobacco Use Types Packs/Day Years [...] Description 07/14/2024 9:15 AM EST Office Visit [facility] [address] [place] [phone] Name, MD Live [address] [place] [address] documented as of this encounter Visit Diagnoses Not on filedocumented in this encounter Additional Health Concerns Assessment Noted Time PHQ-9 Depression Total Score: 0 06/10/19 24 9:52 AM EST documented as of this encounter Care Teams Herb Doctor Relationship Specialty Start Date End Date Name, MD Live [address] [place] [phone] PCP - General Family Medicine 01/19/17 documented as of this encounter
--- OUTSIDE RECORDS SUMMARY | 2024-07-08 12:33 | XMS_ITS | Encounter Summary ---
Author Organization [employer] Address [address] [facility] 7t [place] [address] Care Team Providers Care Radio Reporter Name Role Phone Name, Live WHITFIELD Primary Care Provider [phone] Reason for Visit * Reason Onset Date Comments Med Refill 10/13/2023 Encounter Details Date Type Department Care Team ([facility] st Contact Info) Description 10/13/2023 Refill [facility] [address] [place] [address] Name, MD Live [address] [place] [address] Social History Tobacco Use Types Packs/Day Years [...] Description 07/14/2024 9:15 AM EST Office Visit [facility] [address] [place] [address] Name, MD Live [address] [place] [phone] documented as of this encounter Visit Diagnoses Not on filedocumented in this encounter Additional Health Concerns Assessment Noted Time PHQ-9 Depression Total Score: 0 06/10/19 24 9:52 AM EST documented as of this encounter Care Teams Radio Reporter Relationship Specialty Start Date End Date Name, MD Live [address] [place] [phone] PCP - General Family Medicine 01/19/17 documented as of this encounter
--- OUTSIDE RECORDS SUMMARY | 2024-07-08 12:33 | XMS_ITS | Encounter Summary ---
Author Organization [employer] [facility] Address [address] [place] [address] 7 [place] [address] Care Team Providers Care Typing Checker Name Role Phone Name, Live WHITFIELD Primary Care Provider [phone] Encounter Details Date Type Department Care Team (Latest Contact Info) Description 07/14/2018 Abstract [facility] CONVERSIONS Dental, Provider, DDS Social History Tobacco [...] Description 07/14/2024 9:15 AM EST Office Visit [facility] [address] [place] [address] NameLive MD [address] [place] [address] documented as of this encounter Visit Diagnoses Not on filedocumented in this encounter Care Teams Typing Checker Relationship Specialty Start Date End Date Live Mcknight MD [address] [place] [address] PCP - General Family Medicine 01/19/17 documented as of this encounter
--- OUTSIDE RECORDS SUMMARY | 2024-07-08 12:33 | XMS_ITS | Encounter Summary ---
Author Organization [employer] Address [address] [facility] 7t [place] [address] Care Team Providers Care Science Job Titles Name Role Phone Name, Live WHITFIELD Primary Care Provider [phone] Reason for Visit * Reason Onset Date Comments Med Refill 08/18/2023 Encounter Details Date Type Department Care Team ([facility] st Contact Info) Description 08/18/2023 Refill [facility] [address] [place] [phone] Name, MD Live [address] [place] [address] Social History Tobacco Use Types Packs/Day Years [...] Description 07/14/2024 9:15 AM EST Office Visit [facility] [address] [place] [phone] Name, MD Live [address] [place] [phone] documented as of this encounter Visit Diagnoses Not on filedocumented in this encounter Additional Health Concerns Assessment Noted Time PHQ-9 Depression Total Score: 0 06/10/19 24 9:52 AM EST documented as of this encounter Care Teams Science Job Titles Relationship Specialty Start Date End Date Name, MD Live [address] [place] [phone] PCP - General Family Medicine 01/19/17 documented as of this encounter
--- OUTSIDE RECORDS SUMMARY | 2024-07-08 12:33 | XMS_ITS | Encounter Summary ---
Author Organization [employer] Address [address] [facility] 7t [place] [address] Care Team Providers Care County Director Welfare Name Role Phone Name, Live WHITFIELD Primary Care Provider [phone] Reason for Visit * Reason Comments Pre-visit Planning Pre visit planning L Encounter Details Date Type Department Care Team ([facility] st Contact Info) Description 07/05/2024 Patient Outreach [facility] [address] [place] [phone] Name, MD Live [address] [place] [address] Pre-visit Planning (Pre visit planning LVM ) Social History Tobacco Use Types Packs/Day Years Used Date Smoking Tobacco: Never Smokeless Tobacco: Never Alcohol Use Standard Drinks/Week Comments Never 0 (1 standard drink = 0.6 oz pur e alcohol) Alcohol Answer Date Recorded Frequency of Alcohol Consumption Not on file 01/14/2024 Average Number of Drinks Not on file 024 Frequency of Binge Drinking Not on file 12/30 Score 0 01/14/2024 Depression Answer Date Recorded Patient Health Questionnaire-9 [...] the past 12 months, has t he [employer], gas, oil or water [employer] threatened to shut off services in your home? No 06/10/2023 Depression Answer Date Recorded Patient Health Questionnaire-2 Score 0 06/10/2023 Comments Unknown Sex and Gender Information Value Date Recorded Sex Assigned at Female 03/31/2022 10:21 AM EDT Legal Sex Female 10:21 AM EDT Gender Identity Female 03/31/2022 10:21 AM EDT Sexual Orientation Straight 03/31/2022 10 :21 AM EDT documented as of this encounter Progress Notes * Hernandez Olmos - 07/05/2024 9:51 AM EST CC Hernandez Luna placed outbound call to patient to complete pre-visit planning. No answer at this time.Patient name and were not confirmed. CC left voicemail requesting return call. Direct contact information provided. documented in this encounter Plan of Treatment Upcoming Encounters Date Type Department Care Team (Late st Contact Info) Description 07/14/2024 9:15 AM EST Office Visit [facility] [address] [place] [address] Name, MD Live [address] [place] [address] documented as of this encounter Visit Diagnoses Not on filedocumented in this encounter Additional Health Concerns Assessment Noted Time PHQ-9 Depression Total Score: 0 06/10/19 24 9:52 AM EST documented as of this encounter Care Teams County Director Welfare Relationship Specialty Start Date End Date Name, MD Live [address] [place] [phone] PCP - General Family Medicine 01/19/17 documented as of this encounter
--- OUTSIDE RECORDS SUMMARY | 2024-07-08 12:33 | XMS_ITS | Encounter Summary ---
Author Organization [employer] Address [address] [facility] [address] 7t [place] [address] Care Team Providers Care Burr Grinder Name Role Phone Name, Live WHITFIELD Primary Care Provider [phone] Encounter Details Date Type Department Care Team (Latest Contact Info) Description 07/07/2024 Travel Social History Tobacco Use Types Packs/Day Years [...] Description 07/14/2024 9:15 AM EST Office Visit [facility] [address] [place] [phone] Name, MD Live [address] [place] [phone] documented as of this encounter Visit Diagnoses Not on filedocumented in this encounter Additional Health Concerns Assessment Noted Time PHQ-9 Depression Total Score: 0 06/10/19 24 9:52 AM EST documented as of this encounter Care Teams Burr Grinder Relationship Specialty Start Date End Date Name, MD Live [address] [place] [phone] PCP - General Family Medicine 01/19/17 documented as of this encounter
--- OUTSIDE RECORDS SUMMARY | 2024-07-08 12:33 | XMS_ITS | Encounter Summary ---
Author Organization [employer] Address [address] [facility] [address] 7t [place] [address] Care Team Providers Care Liquid Sugar Melter Name Role Phone Name, Live WHITFIELD Primary Care Provider [phone] Encounter Details Date Type Department Care Team ([facility] st Contact Info) Description 04/22/2024 Orders Only [facility] [address] [place] [address] Joann Sorto RN [address] [place] [address] Anemia, unspecified type Social History Tobacco Use Types Packs/Day Years [...] Description 07/14/2024 9:15 AM EST Office Visit [facility] [address] [place] [address] Name, MD Live [address] [place] [address] documented as of this encounter Visit Diagnoses Diagnosis Anemia, unspecified type documented in this encounter Additional Health Concerns Assessment Noted Time PHQ-9 Depression Total Score: 0 06/10/19 24 9:52 AM EST documented as of this encounter Care Teams Liquid Sugar Melter Relationship Specialty Start Date End Date Name, MD Live [address] [place] [address] PCP - General Family Medicine 01/19/17 documented as of this encounter
--- OUTSIDE RECORDS SUMMARY | 2024-07-08 12:33 | XMS_ITS | Encounter Summary ---
Author Organization [employer] [facility] Address [address] [place] [address] 7 [place] [address] Care Team Providers Care Retread Mold Operator Name Role Phone Name, Live WHITFIELD Primary Care Provider [phone] Encounter Details Date Type Department Care Team (Latest Contact Info) Description 08/24/2020 Abstract [facility] CONVERSIONS Dental, Provider, DDS Social History Tobacco [...] Description 07/14/2024 9:15 AM EST Office Visit [facility] [address] [place] [address] NameLive MD 230 [place] [address] documented as of this encounter Visit Diagnoses Not on filedocumented in this encounter Care Teams Retread Mold Operator Relationship Specialty Start Date End Date Live Mcknight MD [address] [place] [address] PCP - General Family Medicine 01/19/17 documented as of this encounter
--- OUTSIDE RECORDS SUMMARY | 2024-07-08 12:33 | XMS_ITS | Clinical Summary ---
Author Organization [employer] Address [address] [facility] 7t [place] [address] Care Team Providers Care Administrative Program Specialist Name Role Phone Name, Live WHITFIELD Primary Care Provider [phone] Allergies Active Allergy Reactions Criticality Noted Date Comments Morphine 11/06/2016 Sulfa Antibiotics 11/06/2016 Medications amitriptyline (Elavil) 10 MG tablet Take 1 tablet by mouth at bedtime. 1 Active pantoprazole (ProtoNix) 40 MG EC tabletIndications: Bariatric surgery status TAKE 1 TABLET BY MOUTH EVERY DAY 90 tablet 1 4 Active clindamycin (Cleocin T) 1 % lotion Apply topically 2 times daily. 60 mL 5 4 025 Active cholecalciferol (Vitamin D-3) 25 MCG (1000 UT) capsule TAKE 1 CAPSULE BY MOUTH EVERY MORNING 90 capsule 3 4 Active ferrous sulfate 325 (65 Fe) MG EC tablet Take 1 tablet (325 mg) by mouth every other day. Do not crush, chew, or split. 15 tablet 11 4 025 Active Multiple Vitamin (multivitamin) capsule Take 1 capsule by mouth Once per day. 30 capsule 11 4 025 Active erythromycin (Romycin) 5 MG/GM ophthalmic ointmentIndication s:Acute conjunctivitis of left eye, unspecified acute conjunctivitis type Apply to affected eye(s) 4 times daily for 7 days. Apply Amount per Dose: 0.25 inch (~0.5 cm) per dose. 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 Dental calculus 03/23/2023 Periodontal disease 03/23/2023 Dental caries 03/23/2023 Missing teeth, acquired 03/23/2023 Generalized gingival recession 03/23/2023 Bariatric surgery status 06/03/2022 Overview (10/01/2022): 2019 Gastric sleeve at [facility] Wt prior to surgery was 2029 H/O tubal ligation 06/03/2022 Ophthalmic migraine 05/23/2022 Cervical intraepithelial neoplasia grade 2 08/21 Obstructive sleep apnea syndrome 03/20/2017 History of cholecystectomy 01/20/2017 Snoring 01/20/2017 Resolved Problems Problem Noted Date Diagnosed Date Resolved Date History of severe acute resp iratory syndrome coronavirus 2 (SARS-CoV-2) disease 11/13/202006/10 Encounters Date Type Department Care Team Description 07/07/2024 Travel 07/05/2024 Patient Outreach [facility] [address] [place] [phone] Live Mcknight MD Pre-visit Planning (Pre visit planning LVM ) 2024 10:20 AM EST Office Visit [facility] [address] [place] [phone] Lucho To MD Acute conjunctivitis of left eye, unspecified acute conjunctivitis type (Primary Dx) 04/29/2024 Orders Only [facility] [address] [place] [address] Joann Sorto RN Anemia, unspecified type 04/27/2024 2:30 PM EST Office Visit [facility] [address] [place], [place] [phone] Fernanda Wick Visit for periodic health examination (Primary Dx) 04/22/2024 Orders Only [facility] [address] [place] [phone] Live Mcknight MD 04/22/2024 Orders Only [address] [address] Joann Sorto RN Anemia, unspecified type 04/20/2024 Telephone [facility] [address] [place] [address] Joann Sorto RN Lab Orders 04/19/2024 3:00 PM EST Office Visit [facility] [address] [place] [address] Jos Todd Dental calculus (Primary Dx) 04/19/2024 10:00 AM EST Office Visit [facility] [address] [place] [address] Live Mcknight MD Obesity (BMI 30-39.9) (Primary Dx); Obstructive sleep apnea syndrome; Anemia, unspecified type; Encounter for immunization 04/19/2024 Travel 04/13/2024 Telephone [facility] [address] [place] [address] Xi Bowman [place] Chart Prep from Last 3 Months Immunizations Name Administration Dates Next Due Hep B, adult 09/25/2023 Influenza High-dose Quadrivalent Preservative Fr ee 03/19/2020 Influenza injectable quadriv alent IIV4 with preservative 06/03/2022 Influenza injectable quadrivalent preservative f ree 04/08/2023 Influenza, seasonal, injectable, preservative fr ee 04/19/2024 Pfizer Covid-19 Vaccine 12+ 04/19/2024, Tdap 02/02/2018 Social History Tobacco Use Types Packs/Day Years Used Date Smoking Tobacco: Never Smokeless Tobacco: Never Tobacco Cessation:Counseling Given: Not Answered Alcohol Use Standard Drinks/Week Comments Never 0 [...] Orientation Straight 03/31/2022 10 :21 AM EDT Last Filed Vital Signs Vital Sign Reading Time Taken Comments Blood Pressure 118/80 2024 9:42 AM EST Pulse 68 2024 9:42 AM EST Temperature 36.6 ??C (97.9 ??F) 2024 9:42 AM ES T Respiratory Rate 16 2024 9:42 AM EST Oxygen Saturation 97% 2024 9:42 AM EST Inhaled Oxygen Concentration - - Weight 94.3 kg (208 lb) 2024 9:42 AM EST Height 157.5 cm (5' 2 ) 04/19/2024 10:03 AM EST Body Mass Index 38.04 04/19/2024 10:03 AM EST Plan of Treatment Upcoming Encounters Date Type Department Care Team (Late st Contact Info) Description 07/14/2024 9:15 AM EST Office Visit [facility] [address] [place] [address] Name, MD Live [address] [place] [address] Health Maintenance Due Date Last Done Comments HIV Screening 1985 Family Planning (PISQ) 2000 Hepatitis B Vaccines (2 of 3 - 19+ 3-dose series) 10/23/2023 09/25/2023 Depression Screening 06/10/2024 06/10/2023, 06/10/19 SDOH Screening 06/10/2024 06/10/2023 Dental Prophylaxis 10/18/2024 04/19/2024, 1 , 08/24/2020, Additional history exists Dental Oral Exam 10/26/2024 04/27/2024, , 03/23/2023, Additional history exists Alcohol/Substance Use Screening 01/13/2025 01/14/2024 Dental X-Ray: Bitewings 04/20/2025 04/19/20, 06/29/2023, 03/23/2023, Additional history exists Tobacco Screening 04/27/2025 04/27/2024 Pap Smear 06/10/2026 06/10/2023, 12/2023, 05/02/2020 Dental X-Ray: Full Mouth 04/20/2027 024, 08/24/2020, 10/09/2016 DTaP/Tdap/Td Vaccines (3 - Td or Tdap) 02/03/2028 02/02/2018, 06/01/2013 Cervical Cancer Screening 06/10/2028 HPV/Cotest 06/10/2028 06/10/2023, 03/02, 03/27/2022, Additional history exists Lipid Panel 06/13/2028 06/13/2023, 10/2022, 03/20/2020 Zoster Vaccines (1 of 2) 2035 RSV Patients and Patients Aged 60 years or older (1 - 1-dose 75+ series) 2060 Hepatitis C Screening Completed 06/13/2023 COVID-19 Vaccine Completed 04/19/2024, 09/2021, 10/30/2020, Additional history exists Influenza Vaccine Completed 04/19/2024, , 06/03/2022, Additional history exists HIB Vaccines Aged Out No longer eligi ble based on patient's age to complete this topic HPV Vaccines Aged Out No longer eligi ble based on patient's age to complete this topic Hepatitis A Vaccines Aged Out No long er eligible based on patient's age to complete this topic IPV Vaccines Aged Out No longer eligi ble based on patient's age to complete this topic Meningococcal Vaccine Aged Out No jerry sari eligible based on patient's age to complete this topic Pneumococcal Vaccine: Pediatrics (0 to 5 Years) and At-Risk Patients (6 to 49) Years) Aged Out No longer eligible based on patient's age to complete this topic RSV under 20 months Aged Out No longe r eligible based on patient's age to complete this topic Rotavirus Vaccines Aged Out No longer eligible based on patient's age to complete this topic Procedures Procedure Name Priority Date/Time Associated Diagnosis Comments COMPREHENSIVE PERIODONTAL EVALUATION - NEW OR ESTABLISHED PATIENT Routine 04/27/2024 2:30 PM EST PERIODIC ORAL EVALUATION - ESTABLISHED PATIENT Routine 04/27/2024 2:30 PM EST DENTURE ADJUSTMENT Routine 04/27/2024 2: 30 PM EST FECAL GLOBIN BY IMMUNOCHEMISTRY Routine 04/22/2024 12:00 AM EST CLIENT EDUCATION TRACKING Routine 04/22/2024 12:00 AM EST COMPREHENSIVE PERIODONTAL EVALUATION - NEW OR ESTABLISHED PATIENT Routine 04/19/2024 3:00 PM EST PERIODIC ORAL EVALUATION - ESTABLISHED PATIENT Routine 04/19/2024 3:00 PM EST ORAL HYGIENE INSTRUCTIONS Routine 04/19/2024 3:00 PM EST DIAGNOSTIC - DIAGNOSTIC IMAGING - INTRAORAL - COMPREHENSIVE SERIES OF RADIOGRAPHIC IMAGES Routine 04/19/2024 3:00 PM EST PROPHYLAXIS - ADULT Routine 04/19/2024 3 :00 PM EST ADJUNCTIVE GENERAL SERVICES - PROFESSIONAL VISITS - CASE PRESENTATION, SUBSEQUENT TO DETAILED AND EXTENSIVE TREATMENT PLANNING Routine 04/19/2024 3:00 PM EST FERRITIN Routine 04/19/2024 11:02 AM EST Anemia, unspecified type IRON AND TOTAL IRON BINDING CAPACITY Routine 04/19/2024 11:02 AM EST Anemia, unspecified type CBC WITH AUTO DIFFERENTIAL Routine 04/19/2024 11:02 AM EST Anemia, unspecified type HEPATITIS C AB W/REFL TO HCV RNA, QN, PCR Routine 06/13/2023 9:43 AM EST Need for hepatitis C screening test LIPID PANEL, STANDARD Routine 06/13/2023 9:43 AM EST Screening for cholesterol level HM PAP/HPV Routine 06/10/2023 from Last 3 Months or Most Recently Relevant to Health Maintenance Results * Client Education Tracking (04/22/2024 12:00 AM EST) Client Education Tracking [employer] [facility]yl Comment: The Requisition we received did not include a [employer] account number. To prevent delays in testing and processing of your orders please provide the following information with every order submitted: [facility] account number and account name Client address Client phone and fax number NPI number of ordering physician along with the physician name. 04/22/2024 04/29/2024 7:5 0 AM EST Narrative [facility] - 04/30/2024 3:09 PM EST FASTING: UNKNOWN us Live Mcknight MD LAB BLOOD BANK TEST ORDERABLES F inal Result [facility] [address], [place] [address] [employer] [place] [facility] [address] [place] [address] * Fecal Globin by Immunochemistry (04/22/2024 12:00 AM EST) Fecal Globin By Immunochemistry SEE NOTE [employer] [place] [facility]yl Comment: ??FECAL GLOBIN BY IMMUNOCHEMISTRY ?Micro Number: ?[id number] ??Test Status: ? Final ??Specimen Source: ?? Insure (tm) fobt test card ??Specimen Quality: ??Adequate ??Fecal Globin: ?Not Detected 04/22/2024 04/29/2024 7:5 0 AM EST Narrative [facility] - 04/30/2024 3:09 PM EST FASTING: UNKNOWN us Live Mcknight MD LAB BODY FLUIDS AND STOOLS ORDER ALYSSA Final Result [facility] [address] [facility], [place] [address] [facility] [place] [facility] [address] [place] [address] * (ABNORMAL) CBC auto differential (04/19/2024 11:02 AM EST) White Blood Count 8.2 4.8 - 10.8 X10*3/uL [facility] Red Blood Count 4.87 4.20 - 5.50 X10*6/uL [facility] Hemoglobin 10.4(L) 12.0 - 16.0 g/dl [facility] Hematocrit 33.4(L) 37.0 - 47.0 % [facility] Mean Corpuscular Volume 68.6(L) 80.0 - 98.0 fL [facility] Mean Corpuscular Hemoglobin 21.4(L) 27.0 - 33.0 pg [facility] Mean Corpuscular HGB Conc 31.1 31.0 - 35.0 g/dl [facility] Red Cell Distribution Width 18.4(H) 11.0 - 16.0 % [facility] Platelet Count 341 160 - 400 X10*3/uL [facility] Mean Platelet Volume 10.7 9.4 - 12.3 fL [facility] Neutrophils Percent Auto 58.3 45 - 73 % [facility] Imm Gran Pct Auto 0.2 0.0 - 0.4 % [facility] Lymphocytes Percent Auto 27.4 20 - 40 % [facility] Monocytes Percent Auto 10.6 2 - 11 % [facility] Eosinophils Percent Auto 2.9 0 - 4 % [facility] Basophils Percent Auto 0.6 0 - 2 % [facility] NRBC Pct Auto 0.0 0.0 - 0.2 /100WBC [facility] Neutrophils Absolute Auto 4.8 2.0 - 8.3 x10*3/uL [facility] Imm Gran Abs Auto 0.02 0.00 - 0.03 X10*3/uL [facility] Lymphocytes Absolute Auto 2.3 1.2 - 4.9 X10*3/uL [facility] Monocytes Absolute Auto 0.9 0.1 - 1.2 X10*3/uL [facility] Eosinophils Absolute Auto 0.2 0.0 - 0.4 X10*3/uL [facility] Basophils Absolute Auto 0.1 0.0 - 0.2 X10*3/uL [facility] NRBC Abs Auto 0.000 0.0 - 0.012 X10*3/uL [facility] Blood Venous blood specimen / Unknown 04/19/2024 11:02 AM EST 04/19/2024 1:08 PM EST us Live Mcknight MD LAB BLOOD ORDERABLES Final Resul t Performing Organization Address City/[facility] Co de Phone Number [facility] [address] [place] [phone] * (ABNORMAL) Iron And Total Iron Binding Capacity (04/19/2024 11:02 AM EST) [facility] Iron 30 30 - 160 mcg/dL [facility] Total Iron Binding Capacity 346 228 - 428 mcg/dL [facility] Percent Iron Saturation 9(L) 15 - 50 % [facility] Unsaturated Iron Binding 316 ug/dL [facility] Blood Venous blood specimen / Unknown 04/19/2024 11:02 AM EST 04/19/2024 1:08 PM EST us Live Mcknight MD LAB BLOOD ORDERABLES Final Resul t Performing Organization Address City/[facility] Co de Phone Number [facility] [address] [place] [phone] * (ABNORMAL) Ferritin (04/19/2024 11:02 AM EST) [facility] Ferritin 9(L) 10 - 122 ng/mL [facility] Blood Venous blood specimen / Unknown 04/19/2024 11:02 AM EST 04/19/2024 1:08 PM EST us Live Mcknight MD LAB BLOOD ORDERABLES Final Resul t Performing Organization Address [facility] Co de Phone Number [facility] [address] [place] [phone] * Hepatitis C Antibody with Reflex to HCV, RNA, Quantitative, Real-Time PCR (06/13/2023 9:43 AM EST) Hepatitis C Antibody Nonreactive Nonreactive [facility] Comment:Antibodies to HCV no t detected; does not exclude early acuteHCV infection. Blood Venous blood specimen / Unknown 06/13/2023 9:43 AM EST 06/13/2023 9:43 AM EST Live Mcknight MD LAB BLOOD ORDERABLES Final Resul t Performing Organization Address [facility] Co de Phone Number [facility] [address] [place] [phone] * Lipid Panel, Standard (06/13/2023 9:43 AM EST) Triglycerides 52 <150 mg/dL [facility] Comment:Desirable Triglyceri de: less than 150 mg/dLBorderline High Triglyceride 150-199 mg/dLHigh Triglyceride: 200-499 mg/dLVery High Triglyceride: greater than or equal to 5OO mg/dL Cholesterol 141 <200 mg/dL [facility] Comment:Desirable Cholestero l: less than 200 mg/dLBorderline High Cholesterol: 200-239 mg/dLHigh Cholesterol: greater than 239 mg/dL LDL Cholesterol Calculated 79 <100 mg/dL [facility] Comment:Desirable LDL: less than 100 mg/dLNear Optimal/Above Optimal LDL: 110- 129 mg/dLBorderline High LDL: 130-159 mg/dLHigh LDL: 160-189 mg/dLVery High LDL: greater than or equal to 190 mg/dL HDL Cholesterol 52 >40 mg/dL [facility] Comment:Desirable HDL: great er than 40 mg/dL Note: This HDL assay may give artificially low results in patients with liver disease. Blood Venous blood specimen / Unknown 06/13/2023 9:43 AM EST 06/13/2023 9:43 AM EST Live Mcknight MD LAB BLOOD ORDERABLES Final Resul t [facility] [address] [place] [phone] [phone] * Pap Smear (06/10/2023) Pap Negative for intraephithelial lesion or malignancy Negative for intraephithelial lesion or malignancy, Other Comment:NILM HPV not detecte d HPV Not Detected Undetected, Indeterminate, Quantitative, Not Detected Live Mcknight MD HEALTH MAINTENANCE Final Result from Last 3 Months or Most Recently Relevant to Health Maintenance Insurance [facility] Member Subscriber Plan / Payer (Ef fective 2022-Present) Name:Veronika Aleman Relation to Subscriber:Self Name:Veronika Aleman Payer ID:Not on file Group ID:Not on file Type:Medicaid Address: [facility] [id number] [place] [phone] [place] [address] [place] AD[place] Care Teams Administrative Program Specialist Relationship Specialty Start Date End Date Name, MD Live [address] [place] [address] PCP - General Family Medicine 01/19/17
--- OUTSIDE RECORDS SUMMARY | 2024-07-08 12:33 | XMS_ITS | Encounter Summary ---
Author Organization [employer] Address [address] 7[address] [place] [address] Care Team Providers Care Boiler Technician Name Role Phone Name, Live WHITFIELD Primary Care Provider [phone] Encounter Details Date Type Department Care Team ([facility] st Contact Info) Description 04/29/2024 Orders Only [facility] MED[facility] [address] [place] [address] Joann Sorto RN [address] [place] [address] Anemia, unspecified type Social History Tobacco Use [...] Description 07/14/2024 9:15 AM EST Office Visit [facility] [address] [place] [address] Name, MD Live [address] [place] [address] documented as of this encounter Visit Diagnoses Diagnosis Anemia, unspecified type documented in this encounter Additional Health Concerns Assessment Noted Time PHQ-9 Depression Total Score: 0 06/10/19 24 9:52 AM EST documented as of this encounter Care Teams Boiler Technician Relationship Specialty Start Date End Date Name, MD Live [address] [place] [address] PCP - General Family Medicine 01/19/17 documented as of this encounter
--- OUTSIDE RECORDS SUMMARY | 2024-07-08 12:33 | XMS_ITS | Encounter Summary ---
Author Organization [employer] Address [address] [place] [address] Care Team Providers Care Cashier Wrapper Name Role Phone Name, Live WHITFIELD Primary Care Provider [phone] Encounter Details Date Type Department Care Team ([facility] st Contact Info) Description 06/24/2023 Abstract [facility] MED[facility] [address] [place] [address] Name, MD Live [address] [place] [address] Social History Tobacco Use Types Packs/Day Years [...] Description 07/14/2024 9:15 AM EST Office Visit [facility] MED[facility] [address] [place] [address] Name, MD Live [address] [place] [address] documented as of this encounter Procedures Procedure Name Priority Date/Time Associated Diagnosis Comments PAP/HPV Routine 06/10/2023 documented in this encounter Results * Pap Smear (06/10/2023) Pap Negative for intraephithelial lesion or malignancy Negative for intraephithelial lesion or malignancy, Other Comment:NILM HPV not detecte d HPV Not Detected Undetected, Indeterminate, Quantitative, Not Detected Live Mcknight MD HEALTH MAINTENANCE Final Result documented in this encounter Visit Diagnoses Not on filedocumented in this encounter Additional Health Concerns Assessment Noted Time PHQ-9 Depression Total Score: 0 06/10/19 24 9:52 AM EST documented as of this encounter Care Teams Cashier Wrapper Relationship Specialty Start Date End Date NameLive MD [address] [place] [address] PCP - General Family Medicine 01/19/17 documented as of this encounter
[2024-07-18 09:10] LABS: HPV Genotype 16 Negative (Negative); HPV Genotype 18 Negative (Negative); HPV High Risk Positive (Negative)
== END 2024-07-08 11:06 | disposition home or self-care (01) ==
LOC: HO.LNP 11:05
PROVIDERS: PCP Internal Medicine Geriatric Medicine; Visit Provider Obstetrics & Gynecology
DX: Z01.419 Encounter for gynecological examination (general) (routine) without abnormal findings (principal); Z11.51 Encounter for screening for human papillomavirus (HPV); R87.610 Atypical squamous cells of undetermined significance on cytologic smear of cervix (ASC-US); R87.810 Cervical high risk human papillomavirus (HPV) DNA test positive; Z87.42 Personal history of other diseases of the female genital tract
CPT/HCPCS: 87626; 88175

== ENCOUNTER → 2024-07-08 11:05 | Outpatient (AMB) | payer OTHER, MEDICAID, SELFPAY | END | disposition home or self-care (01) | PROVIDERS: PCP Internal Medicine Geriatric Medicine; Visit Provider Obstetrics & Gynecology | CPT/HCPCS: 99395; 99459 ==

== ENCOUNTER 2024-07-16 08:41 | Outpatient (REF) | payer OTHER, MEDICAID, SELFPAY ==
--- OUTSIDE RECORDS SUMMARY | 2024-07-16 08:44 | XMS_ITS | Encounter Summary ---
Author Organization [employer] Address [address] [place] [address] Care Team Providers Care Cement Block Maker Name Role Phone Name, Live WHITFIELD Primary Care Provider [phone] Encounter Details Date Type Department Care Team ([facility] st Contact Info) Description 04/22/2024 Orders Only [facility] MED[facility]INE [address] [place] [address] Joann Sorto RN [address] [place] [address] Anemia, unspecified type Social History Tobacco Use [...] Care Team (Late st Contact Info) Description 07/29/2024 8:00 AM EST Office Visit [facility] [address] [place] [address] Jose Cruz Wickpreet [address] [place] [address] documented as of this encounter Visit Diagnoses Diagnosis Anemia, unspecified type documented in this encounter Additional Health Concerns Assessment Noted Time PHQ-9 Depression Total Score: 0 06/10/19 24 9:52 AM EST documented as of this encounter Care Teams Cement Block Maker Relationship Specialty Start Date End Date Name, MD Live [address] [place] [address] PCP - General Family Medicine 01/19/17 documented as of this encounter
--- OUTSIDE RECORDS SUMMARY | 2024-07-16 08:44 | XMS_ITS | Encounter Summary ---
Author Organization [employer] Address [address] 7[address] [place] [address] Care Team Providers Care Petroleum Blending Plant Operator Name Role Phone Name, Live WHITFIELD Primary Care Provider [phone] Reason for Visit * Reason Onset Date Comments chartprep 07/12/2024 Encounter Details Date Type Department Care Team ([facility] st Contact Info) Description 07/12/2024 Telephone [facility] MEDICINE [address] [place] [address] Renée Cha MA chartprep Social History Tobacco Use Types Packs/Day Years [...] encounter Miscellaneous Notes * Telephone Encounter - Renée Cha MA - 07/12/2024 9:36 AM EST Chart Prep Labs: done except fecal globin Images: done Vaccines due: yes Hep B Referrals: N/A Screenings: Hiv screening Overdue care gaps: SDOH, PHQ-9, ALLAN-7 documented in this encounter Plan of Treatment Upcoming Encounters Date Type Department Care Team ([facility] st Contact Info) Description 07/29/2024 8:00 AM EST Office Visit [facility] ADULT DENTAL [address] [place] [address] Fernanda Wick [address] [place] [address] documented as of this encounter Visit Diagnoses Not on filedocumented in this encounter Additional Health Concerns Assessment Noted Time PHQ-9 Depression Total Score: 0 06/10/19 24 9:52 AM EST documented as of this encounter Care Teams Petroleum Blending Plant Operator Relationship Specialty Start Date End Date Name, MD Live [address] [place] [address] PCP - General Family Medicine 01/19/17 documented as of this encounter
--- OUTSIDE RECORDS SUMMARY | 2024-07-16 08:44 | XMS_ITS | Encounter Summary ---
Author Organization [employer] [facility] Address [address] [place] [address] 7 [place] [address] Care Team Providers Care Lidder Name Role Phone Name, Live WHITFIELD Primary Care Provider [phone] Encounter Details Date Type Department Care Team (Latest Contact Info) Description 08/24/2020 Abstract [facility] Dental, Provider, DDS Social History Tobacco [...] Description 07/29/2024 8:00 AM EST Office Visit [facility] ADULT D[facility]AL [address] [place] [address] WickTanja mendesanpreet [address] [place] [address] documented as of this encounter Visit Diagnoses Not on filedocumented in this encounter Care Teams Lidder Relationship Specialty Start Date End Date Name, MD Live [address] [place] [address] PCP - General Family Medicine 01/19/17 documented as of this encounter
--- OUTSIDE RECORDS SUMMARY | 2024-07-16 08:44 | XMS_ITS | Clinical Summary ---
Author Organization [employer] Address [address] [facility] 7[address] [place] [address] Care Team Providers Care Iuss Analyst Name Role Phone Name, Live WHITFIELD Primary Care Provider [phone] Allergies Active Allergy Reactions Criticality Noted Date Comments Morphine 11/06/2016 Sulfa Antibiotics 11/06/2016 Medications pantoprazole (ProtoNix) 40 MG EC tabletIndicatio ns:Bariatric surgery status TAKE 1 TABLET BY MOUTH EVERY DAY 90 tablet 1 4 Active clindamycin (Cleocin T) 1 % lotion Apply topically 2 times daily. 60 mL 5 4 01/14/20 25 Active cholecalciferol (Vitamin D-3) 25 MCG (1000 UT) capsule TAKE 1 CAPSULE BY MOUTH EVERY MORNING 90 capsule 3 4 Active ferrous sulfate 325 (65 Fe) MG EC tablet Take 1 tablet (325 mg) by mouth every other day. Do not crush, chew, or split. 15 tablet 11 4 04/19/20 25 Active Multiple Vitamin (multivitamin) capsule Take 1 capsule by mouth Once per day. 30 capsule 11 4 04/19/20 25 Active amitriptyline (Elavil) 10 MG tablet Take 1 tablet by mouth at bedtime. 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 Dental calculus 03/23/2023 Periodontal disease 03/23/2023 Dental caries 03/23/2023 Missing teeth, acquired 03/23/2023 Generalized gingival recession 03/23/2023 Bariatric surgery status 06/03/2022 Overview (10/01/2022): [place] [facility] Wt prior to surgery was 2029 H/O tubal ligation 06/03/2022 Ophthalmic migraine 05/23/2022 Cervical intraepithelial neoplasia grade 2 08/21 Obstructive sleep apnea syndrome 03/20/2017 History of cholecystectomy 01/20/2017 Snoring 01/20/2017 Resolved Problems Problem Noted Date Diagnosed Date Resolved Date History of severe acute resp iratory syndrome coronavirus 2 (SARS-CoV-2) disease 11/13/202006/10 Encounters Date Type Department Care Team Description 07/14/2024 9:15 AM EST Office Visit [address] [address] Live Mcknight MD PE (physical exam), routine (Primary Dx); Other iron deficiency anemia 07/12/[address] [address] Renée Cha [place] chartprep 07/07/2024 Travel 07/05/2024 Patient Outreach [address] [address] Live Mcknight MD Pre-visit Planning (Pre visit planning LVM ) 2024 10:20 AM EST Office Visit [facility] [address] [place] [address] Lucho To MD Acute conjunctivitis of left eye, unspecified acute conjunctivitis type (Primary Dx) 04/29/2024 Orders Only [address] [address] Joann Sorto, LILLY Anemia, unspecified type 04/27/2024 2:30 PM EST Office Visit [facility] [address] [place] [address] Fernanda Wick Visit for periodic health examination (Primary Dx) 04/22/2024 Orders Only [address] [address] Live Mcknight MD 04/22/2024 Orders Only [address] [address] Joann Sorto, RN Anemia, unspecified type 04/20/2024 Telephone [facility] [address] [place] [address] Joann Sorto, septic tank setter Orders 04/19/2024 3:00 PM EST Office Visit [facility] [address] [place] [address] Jos Todd Dental calculus (Primary Dx) 04/19/2024 10:00 AM EST Office Visit [facility] [address] [place] [address] Name, MD Live Obesity (BMI 30-39.9) (Primary Dx); Obstructive sleep apnea syndrome; Anemia, unspecified type; Encounter for immunization 04/19/2024 Travel from Last 3 Months Immunizations Name Administration Dates Next Due Hep B, adult 09/25/2023 Influenza High-dose Quadrivalent Preservative Fr ee 03/19/2020 Influenza injectable quadriv alent IIV4 with preservative 06/03/2022 Influenza injectable quadrivalent preservative f ree 04/08/2023 Influenza, seasonal, injectable, preservative fr ee 04/19/2024 Pfizer Covid-19 Vaccine 12+ 04/19/2024, Tdap 02/02/2018 Family History Medical History Relation Name Comments Diabetes type II Father Diabetes Mother Hypertension Mother Relation Name Status Comments Father Mother Social History Tobacco Use Types Packs/Day Years [...] Answer Date Recorded Patient Health Questionnaire-9 Score 8 07/14/2024 Patient Health Questionnaire-9 Score 8 07/14/2024 Last PHQ-9: Questionnaire Data Not on file 0 07/14/2024 Housing Stability Answer Date Recorded What is your housing situation today? I have missy fernandez 07/14/[address] you li ve. Do you have problems with any of the following? None of the above 07/14/2024 Food Insecurity Answer Date Recorded Within the past 12 months, y ou worried that your food would run out before you got money to buy more: Never True 07/14/2024 Within the past 12 months,th e food you bought just didn't last and you didn't have enough money to get more: Never True Transportation Answer Date Recorded In the past 12 months, has l ack of transportation kept you from medical appts, meetings, work or from getting things needed for daily living? No 07/14/2024 Utilities Answer Date Recorded In the past 12 months, has t he electric, gas, oil or water company threatened to shut off services in your home? No 07/14/2024 Depression Answer Date Recorded Patient Health Questionnaire-2 Score 0 07/14/2024 Internet Access Answer Date Recorded Internet Access Q1 Yes 07/14/2024 Internet Access Q2 Not on file 07/14/2024 Comments Unknown Sex and Gender Information Value Date Recorded Sex Assigned at Female 03/31/2022 10:21 AM EDT Legal Sex Female 10:21 AM EDT Gender Identity Female 03/31/2022 10:21 AM EDT Sexual Orientation Straight 03/31/2022 10 :21 AM EDT Last Filed Vital Signs Vital Sign Reading Time Taken Comments Blood Pressure 119/73 07/14/2024 9:06 AM EST Pulse 71 07/14/2024 9:06 AM EST Temperature 36.6 ??C (97.9 ??F) 07/14/2024 9:06 AM ES T Respiratory Rate 20 07/14/2024 9:06 AM EST Oxygen Saturation 99% 07/14/2024 9:06 AM EST Inhaled Oxygen Concentration - - Weight 93.1 kg (205 lb 3.2 oz) 07/14/2024 9:06 A M EST Height 157.5 cm (5' 2 ) 04/19/2024 10:03 AM EST Body Mass Index 37.53 04/19/2024 10:03 AM EST Plan of Treatment Upcoming Encounters Date Type Department Care Team (Late st Contact Info) Description 07/29/2024 8:00 AM EST Office Visit [facility] ADULT DENTAL [address] [place] [address] Fernanda Wick [address] [place] [address] Health Maintenance Due Date Last Done Comments HIV Screening 1985 Family Planning (PISQ) 2000 Hepatitis B Vaccines (2 of 3 - 19+ 3-dose series) 10/23/2023 09/25/2023 Dental Prophylaxis 10/18/2024 04/19/2024, 1 , 08/24/2020, Additional history exists Dental Oral Exam 10/26/2024 04/27/2024, , 03/23/2023, Additional history exists Alcohol/Substance Use Screening 01/13/2025 01/14/2024 Dental X-Ray: Bitewings 04/20/2025 04/19/20 24, 06/29/2023, 03/23/2023, Additional history exists Depression Screening 07/14/2025 07/14/2024, 07/14/19 25 SDOH Screening 07/14/2025 07/14/2024 Tobacco Screening 07/14/2025 07/14/2024 Pap Smear 06/10/2026 06/10/2023, 12/2023, 05/02/2020 Dental [...] HYGIENE INSTRUCTIONS Routine 04/19/2024 3:00 PM EST INTRAORAL - COMPLETE SERIES OF RADIOGRAPHIC IMAGES Routine 04/19/2024 3:00 PM EST PROPHYLAXIS - ADULT Routine 04/19/2024 3 :00 PM EST CASE PRESENTATION, DETAILED AND EXTENSIVE TREATMENT PLANNING Routine 04/19/2024 [...] Client Education Tracking (04/22/2024 12:00 AM EST) Pathologist [facility] Client Education Tracking [employer] [facility] Comment: The Requisition we received did not include a [employer] account number. To prevent delays in testing and processing of your orders please provide the following information with every order submitted: [facility] account number and account name Client address Client phone and fax number NPI number of ordering physician along with the physician name. 04/22/2024 04/29/2024 7:5 0 AM EST Narrative [facility] - 04/30/2024 3:09 PM EST FASTING: UNKNOWN Live Mcknight MD LAB BLOOD BANK TEST ORDERABLES F inal Result [facility] [address], [place] [address] [employer] [place] [employer] [address] [place] [address] * Fecal Globin by Immunochemistry (04/22/2024 12:00 AM EST) Pathologist [facility] Fecal Globin By Immunochemistry SEE NOTE [employer] [place] [employer] Comment: ??FECAL GLOBIN BY IMMUNOCHEMISTRY ?Micro Number: ?[id number] ??Test Status: ? Final ??Specimen Source: ?? Insure (tm) fobt test card ??Specimen Quality: ??Adequate ??Fecal Globin: ?Not Detected 04/22/2024 04/29/2024 7:5 0 AM EST Narrative [facility] - 04/30/2024 3:09 PM EST FASTING: UNKNOWN us Live Mcknight MD LAB BODY FLUIDS AND STOOLS ORDER ALYSSA Final Result [facility] [address], [place] [address] [facility] [address] [place] [address] * (ABNORMAL) CBC auto differential (04/19/2024 11:02 AM EST) White Blood Count 8.2 4.8 - 10.8 X10*3/uL [facility] Red Blood Count 4.87 4.20 - 5.50 X10*6/uL [facility] Hemoglobin 10.4(L) 12.0 - 16.0 g/dl [facility] Hematocrit 33.4(L) 37.0 - 47.0 % [facility] Mean Corpuscular Volume 68.6(L) 80.0 - 98.0 fL [facility] Mean Corpuscular Hemoglobin 21.4(L) 27.0 - 33.0 pg [facility] Mean Corpuscular HGB Conc 31.1 31.0 - 35.0 g/dl [facility] Red Cell Distribution Width 18.4(H) 11.0 - 16.0 % [facility] Platelet Count 341 160 - 400 X10*3/uL [facility] Mean Platelet Volume 10.7 9.4 - 12.3 fL [facility] Neutrophils Percent Auto 58.3 45 - 73 % [facility] Imm Gran Pct Auto 0.2 0.0 - 0.4 % [facility] Lymphocytes Percent Auto 27.4 20 - 40 % [facility] Monocytes Percent Auto 10.6 2 - 11 % [facility] Eosinophils Percent Auto 2.9 0 - 4 % [facility] Basophils Percent Auto 0.6 0 - 2 % [facility] NRBC Pct Auto 0.0 0.0 - 0.2 /100WBC [facility] Neutrophils Absolute Auto 4.8 2.0 - 8.3 x10*3/uL [facility] Imm Gran Abs Auto 0.02 0.00 - 0.03 X10*3/uL [facility] Lymphocytes Absolute Auto 2.3 1.2 - 4.9 X10*3/uL [facility] Monocytes Absolute Auto 0.9 0.1 - 1.2 X10*3/uL [facility] Eosinophils Absolute Auto 0.2 0.0 - 0.4 X10*3/uL [facility] Basophils Absolute Auto 0.1 0.0 - 0.2 X10*3/uL [facility] NRBC Abs Auto 0.000 0.0 - 0.012 X10*3/uL [facility] Blood Venous blood specimen / Unknown 04/19/2024 11:02 AM EST 04/19/2024 1:08 PM EST us Live Mcknight MD LAB BLOOD ORDERABLES Final Resul t Performing Organization Address City/[facility]/ZIP Co de Phone Number [facility] [address] [place] [phone] * (ABNORMAL) Iron And Total Iron Binding Capacity (04/19/2024 11:02 AM EST) Iron 30 30 - 160 mcg/dL [facility] Total Iron Binding Capacity 346 228 - 428 mcg/dL [facility] Percent Iron Saturation 9(L) 15 - 50 % [facility] Unsaturated Iron Binding 316 ug/dL [facility] Blood Venous blood specimen / Unknown 04/19/2024 11:02 AM EST 04/19/2024 1:08 PM EST us Live Mcknight MD LAB BLOOD ORDERABLES Final Resul t Performing Organization Address City/[facility]/ZIP Co de Phone Number [facility] [address] [place] [phone] * (ABNORMAL) Ferritin (04/19/2024 11:02 AM EST) Ferritin 9(L) 10 - 122 ng/mL [facility] Blood Venous blood specimen / Unknown 04/19/2024 11:02 AM EST 04/19/2024 1:08 PM EST us Live Mcknight MD LAB BLOOD ORDERABLES Final Resul t Performing Organization Address [facility] de Phone Number [facility] [address] [place] [phone] * Hepatitis C Antibody with Reflex to HCV, RNA, Quantitative, Real-Time PCR (06/13/2023 9:43 AM EST) Pathologist [facility] Hepatitis C Antibody Nonreactive Nonreactive [facility] Comment:Antibodies to HCV no t detected; does not exclude early acuteHCV infection. Blood Venous blood specimen / Unknown 06/13/2023 9:43 AM EST 06/13/2023 9:43 AM EST us Live Mcknight MD LAB BLOOD ORDERABLES Final Resul t Performing Organization Address [facility] de Phone Number [facility] [address] [place] [phone] * Lipid Panel, Standard (06/13/2023 9:43 AM EST) Triglycerides 52 <150 mg/dL [facility] Comment:Desirable Triglyceri de: less than 150 mg/dLBorderline High Triglyceride 150-199 mg/dLHigh Triglyceride: 200-499 mg/dLVery High Triglyceride: greater than or equal to 5OO mg/dL Cholesterol 141 <200 mg/dL [facility] Comment:Desirable Cholestero l: less than 200 mg/dLBorderline High Cholesterol: 200-239 mg/dLHigh Cholesterol: greater than 239 mg/dL LDL Cholesterol Calculated 79 <100 mg/dL [facility] Comment:Desirable LDL: less than 100 mg/dLNear Optimal/Above Optimal LDL: 110- 129 mg/dLBorderline High LDL: 130-159 mg/dLHigh LDL: 160-189 mg/dLVery High LDL: greater than or equal to 190 mg/dL HDL Cholesterol 52 >40 mg/dL [facility] Comment:Desirable HDL: great er than 40 mg/dL Note: This HDL assay may give artificially low results in patients with liver disease. Blood Venous blood specimen / Unknown 06/13/2023 9:43 AM EST 06/13/2023 9:43 AM EST Live Mcknight MD LAB BLOOD ORDERABLES Final Resul t [facility] [address] [place] [phone] * Pap Smear (06/10/2023) Pap Negative for intraephithelial lesion or malignancy Negative for intraephithelial lesion or malignancy, Other Comment:NILM HPV not detecte d HPV Not Detected Undetected, Indeterminate, Quantitative, Not Detected Live Mcknight MD HEALTH MAINTENANCE Final Result from Last 3 Months or Most Recently Relevant to Health Maintenance Insurance [facility] MEDICAID STAND ADULT Member Subscriber Plan / Payer (Ef fective 2023-Present) Name:Veronika Aleman Relation to Subscriber:Self Name:Veronika Aleman Payer ID:Not on file Group ID:Not on file Type:Not on file Address: [place] [phone] Care Teams Iuss Analyst Relationship Specialty Start Date End Date Name, MD Live [address] [place] [address] PCP - General Family Medicine 01/19/17
--- OUTSIDE RECORDS SUMMARY | 2024-07-16 08:44 | XMS_ITS | Encounter Summary ---
Author Organization [employer] Address [address] [facility] 7t [place] [address] Care Team Providers Care Misdraw Hand Name Role Phone Name, Live WHITFIELD Primary Care Provider [phone] Reason for Visit * Reason Comments Annual Exam Encounter Details Date Type Department Care Team ([facility] Contact Info) Description 07/14/2024 9:15 AM EST Office Visit [facility] [address] [place] [id number] Name, MD Live [address] [place] [phone] PE (physical exam), routine (Primary Dx); Other iron deficiency anemia Social History Tobacco Use Types Packs/Day Years [...] AM EDT documented as of this encounter Last Filed Vital Signs Vital Sign Reading [...] oz) 07/14/2024 9:06 A M EST Height - - Body Mass Index 37.53 04/19/2024 10:03 AM EST documented in this encounter Progress Notes * Live Mcknight MD - 07/14/2024 9:15 AM EST Subjective Patient ID: Veronika Aleman is a 39 y.o. female who presents for Annual Exam. Patient comes for a physical exam. She is doing well. She was able to lose a few pounds compared toprevious visit with diet and physical activity. Her insurance did not pay for GLP-1 therapy. She has been using iron supplementation for treatment of iron deficiency anemia. She uses her iron once to3 times a week to avoid constipation. She denies any heavy menstrual periods. Fecal occult blood testing was negative. She has a previous history of bariatric surgery. She is using her multivitamins and vitamin D supplements daily. She is up-to-date with her Pap smears. She is due for her first mammogram next year. She is up-to-date with vaccinations. She is not interested in HIV testing. The patient is monogamous and she was HIV negative with her 5 previous pregnancies. Review of Systems Constitutional: Negative for chills and fever. HENT: Negative for sore throat. Respiratory: Negative for cough, shortness of breath and wheezing. Cardiovascular: Negative for chest pain, palpitations and leg swelling. Gastrointestinal: Negative for abdominal pain. Visit Vitals BP 119/73 Pulse 71 Temp 97.9 ??F (36.6 ??C) (Oral) Resp 20 Wt 205 lb 3.2 oz (93.1 kg) SpO2 99% BMI 37.53 kg/m?? Smoking Status Never BSA 2.02 m?? Objective Physical Exam Constitutional: Appearance: Normal appearance. She is obese. Cardiovascular: Rate and Rhythm: Normal rate and regular rhythm. Heart sounds: No murmur heard. No gallop. Pulmonary: Effort: Pulmonary effort is normal. No respiratory distress. Breath sounds: Normal breath sounds. No wheezing. Musculoskeletal: Right lower leg: No edema. Left lower leg: No edema. Neurological: Mental Status: She is alert. Assessment/Plan Diagnoses and all orders for this visit: PE (physical exam), routine Comments: Continue current medications Avoid sweets and soda Avoid processed foods I recommended regular physical activity I recommended to eat more fruits and vegetables And avoid fried foods Check fasting blood work listed below Orders: - CBC auto differential; Future - Iron And Total Iron Binding Capacity; Future - Comprehensive Metabolic Panel; Future - Lipid Panel, Standard; Future Other iron deficiency anemia - CBC auto differential; Future - Iron And Total Iron Binding Capacity; Future - Comprehensive Metabolic Panel; Future - Lipid Panel, Standard; Future documented in this encounter Plan of Treatment Upcoming Encounters Date Type Department Care Team (Late st Contact Info) Description 07/29/2024 8:00 AM EST Office Visit [facility] [address] [place] [address] Jose Cruz Wickprejacob [address] [place] [address] Scheduled Orders Name Type Priority Associated Diagnoses Orde r Schedule CBC auto differential Lab Routine PE (physical exam), routine Other iron deficiency anemia Expected: 07/14/2024 (Approximate), Expires: 07/14/2025 Iron And Total Iron Binding Capacity Lab Routine PE (physical exam), routine Other iron deficiency anemia Expected: 07/14/2024, Expires: 07/14/2025 Comprehensive Metabolic Panel Lab Routine PE (physical exam), routine Other iron deficiency anemia Expected: 07/14/2024 (Approximate), Expires: 07/14/2025 Lipid Panel, Standard Lab Routine PE (physical exam), routine Other iron deficiency anemia Expected: 07/14/2024 (Approximate), Expires: 07/14/2025 documented as of this encounter Visit Diagnoses Diagnosis PE (physical exam), routine- Primary Other iron deficiency anemia documented in this encounter Additional Health Concerns Assessment Noted Time PHQ-9 Depression Total Score: 8 07/14/19 25 9:35 AM EST documented as of this encounter Care Teams Misdraw Hand Relationship Specialty Start Date End Date Name, MD Live [address] [place] [address] PCP - General Family Medicine 01/19/17 documented as of this encounter
--- OUTSIDE RECORDS SUMMARY | 2024-07-16 08:44 | XMS_ITS | Encounter Summary ---
Author Organization [employer] Address [address] [facility] [address] [place] [address] Care Team Providers Care Tea Room Manager Name Role Phone Name, Live WHITFIELD Primary Care Provider [phone] Encounter Details Date Type Department Care Team [...] Description 07/29/2024 8:00 AM EST Office Visit [facility] [address] [place] [address] Jose Cruz Wicksincerejacob [address] [place] [address] documented as of this encounter Visit Diagnoses Not on filedocumented in this encounter Additional Health Concerns Assessment Noted Time PHQ-9 Depression Total Score: 0 06/10/19 24 9:52 AM EST documented as of this encounter Care Teams Tea Room Manager Relationship Specialty Start Date End Date Name, MD Live [address] [place] [address] PCP - General Family Medicine 01/19/17 documented as of this encounter
--- OUTSIDE RECORDS SUMMARY | 2024-07-16 08:44 | XMS_ITS | Encounter Summary ---
Author Organization [employer] Address [address] [facility] 7t [place] [address] Care Team Providers Care Manager Ems Name Role Phone Name, Live WHITFIELD Primary Care Provider [phone] Reason for Visit * Reason Onset Date Comments Lorene TORIBIO 10/15/2023 Encounter Details Date Type Department Care Team ([facility] st Contact Info) Description 10/15/2023 Telephone [facility] [address] [place] [address] Name, MD Live [address] [place] [address] Lorene TORIBIO Social History Tobacco Use Types [...] - 10/15/2023 4:35 PM EDT [facility] calling to inform medication Wegovy has been denied by insurance. documented in this encounter Plan of Treatment Upcoming Encounters Date Type Department Care Team (Late st Contact Info) Description 07/29/2024 8:00 AM EST Office Visit [facility] [address] [place] [address] Jose Cruz Wickpreet [address] [place] [address] documented as of this encounter Visit Diagnoses Not on filedocumented in this encounter Additional Health Concerns Assessment Noted Time PHQ-9 Depression Total Score: 0 06/10/19 24 9:52 AM EST documented as of this encounter Care Teams Manager Ems Relationship Specialty Start Date End Date Name, MD Live [address] [place] [address] PCP - General Family Medicine 01/19/17 documented as of this encounter
--- OUTSIDE RECORDS SUMMARY | 2024-07-16 08:44 | XMS_ITS | Encounter Summary ---
Author Organization [employer] Address [address] [facility] 7 [place] [address] Care Team Providers Care Sap Architect Name Role Phone NameLive MD Primary Care Provider [phone] Reason for Visit * Reason Comments Med Change Request Encounter Details Date Type Department Care Team ([facility] st Contact Info) Description 10/01/2022 Refill [facility] [address] [place] [phone] Name, MD Live [address] [place] [address] Social History Tobacco Use Types Packs/Day Years [...] [facility] [address] [place] [address] Jose Cruz Wickpreet [address] [place] [address] documented as of this encounter Visit Diagnoses Not on filedocumented in this encounter Care Teams Sap Architect Relationship Specialty Start Date End Date Name, MD Live [address] [place] [phone] PCP - General Family Medicine 01/19/17 documented as of this encounter
--- OUTSIDE RECORDS SUMMARY | 2024-07-16 08:44 | XMS_ITS | Encounter Summary ---
Author Organization [facility] Address [address] [place] [address] [address] [place] [address] Care Team Providers Care Exterminator Termite Name Role Phone Name, Live WHITFIELD Primary Care Provider [phone] Encounter Details Date Type Department Care Team (Late st Contact Info) Description 12/15/2022 Abstract [facility] [address] [place] [address] Name, MD Live [address] [place] [address] Social History Tobacco Use Types Packs/Day Years [...] Description 07/29/2024 8:00 AM EST Office Visit [facility] [address] [place], [place] [phone] Fernanda Wick [address] [place] [address] documented as of this encounter Procedures Procedure Name Priority Date/Time Associated Diagnosis Comments COLPOSCOPY Routine 05/13/2022 12:00 AM EST documented in this encounter Results * Colposcopy (05/13/2022 12:00 AM EST) us Historical Provider IN CLINIC/BEDSIDE ORDERAB LES Final Result documented in this encounter Visit Diagnoses Not on filedocumented in this encounter Care Teams Exterminator Termite Relationship Specialty Start Date End Date Name, MD Live [address] [place] [id number] PCP - General Family Medicine 01/19/17 documented as of this encounter
--- OUTSIDE RECORDS SUMMARY | 2024-07-16 08:44 | XMS_ITS | Data Portability ---
Author Organization [facility], , [facility] Address [address] [place] [address] Assessment Encounter Date Assessment Date Assessment LastModified by Organization Details LastModified Time 10/13/2013 10/13/2013 Assessment:? ? ? Marla reports over the past few months when she has been gripping something for a while, i.e a knife, hairbrush, she has difficulty opening her hand to release the object.? ? ? There is no pain and she does not feel that there is muscle crampling.? ? ? She had slightly reduced wrist ROM and slight tightness with a stretch of the flexors.? ? ? 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 on the left. Goal:? ? ? Stop hand cramping . Treatment Plan: 1x/wk x 4 wks Treatment to Include:There x: stretching, strengthening ; modalities; ? ? ?HEP abynum Not available 10/13/2013 19:02:15 Plan of Treatment Reminders Order Date Submit Date Provider Last Modified By Organization Details Last Modified Time Details Appointments None recorded. Lab urinalysis, dipstick [address], [address] [place] [address], [address], 6 12:37:03 culture, urine 2015 016 [facility], [address] [place] [address], [address], 6 13:05:17 CBC 2015 016 [facility], [address] [place] [address], [address], 6 10:50:51 glucose, QN [mass/volum e], serum or plasma 2015 016 [facility], [address] [place], [address], 6 15:40:46 HbA1c (hemoglobin A1c), blood 2015 016 [facility], [address] [place], [address], 6 12:52:26 TSH, serum or plasma 2015 016 [facility], [address] [place] [address], [address], 6 16:44:27 Referral physical therapist referral - Low back pain - sprain. Please eval and treat. 2015 016 [facility], [address] [place] [address], [phone], 6 05:02:15 Procedures None recorded. Surgeries None recorded. Imaging None recorded. Medication Orders Pyridium 200 mg tablet 2015 016 cnormandi n2 [facility] [address] ([address]), [address], [place], [id number], 7 07:16:12 loratadine 10 mg tablet 2013 014 jdulude Kastmaurisios [address] ([address]), [address], [place], [id number], 6 09:14:15 Flonase 50 mcg/actuati on nasal spray,suspe nsion 2013 014 jdulude Mikeeens [address] ([address]), [address], [place], [phone], 6 09:14:15 Patient TargetsNo targets recorded. Patient Instructions Encounter Date Encounter Id Patient Instructions Last Modified By Organization Details Last Modified Time 06/06/2015 [id number] Well Visit, Ages 18 to 65: Care Instructions [email or web address] Not available 06/06/2015 10:38:26 After a discussi on of treatment options, which included consideration of best practices and patient preferences, the above treatment plan and objectives were adopted. fkim Not available 06/06/2015 09:51:53 06/21/2015 [id number] Continue with ibuprofen as needed, heat/ice, range of motion exercises, hand out on back stretches given. msharron Not available 06/25/2015 07:41:05 Reason for Referral Low back pain - sprain. Plea se eval and treat. Referring Physician: Sindi Lopez, Family Medicine, Encounter Date: 06/21/2015 Results Created Date Observation Date Name Description Value Unit Range Abnormal Flag Note LastModifiedBy Organization Detail LastModifiedTime 08/23/19 16 08/23/2015 urina lysis , dipst ick Leukocytes Negati ve Not Available [address], [address], 08/23/2015 12:15:16 08/23/1908/23/2015 urina lysis , dipst ick Nitrite negati ve Not Available [address], [address], 08/23/2015 12:15:16 08/23/19 16 08/23/2015 urina lysis , dipst ick Urobilinogen .2 Not Available [address], [address], 08/23/2015 12:15:16 08/23/1908/23/2015 urina lysis , dipst ick Protein Negati ve Not Available [address], [address], 08/23/2015 12:15:16 08/23/1908/23/2015 urina lysis , dipst ick pH 5.5 Not Available [address], [address], 08/23/2015 12:15:16 08/23/19 16 08/23/2015 urina lysis , dipst ick Blood Negati ve Not Available [address], [address], 08/23/2015 12:15:16 08/23/19 16 08/23/2015 urina lysis , dipst ick Specific Thornton 1.015 Not Available [address], [address], 08/23/2015 12:15:16 08/23/19 16 08/23/2015 urina lysis , dipst ick Ketone Negati ve Not Available [address], [address], 08/23/2015 12:15:16 08/23/19 16 08/23/2015 urina lysis , dipst ick Bilirubin Negati ve Not Available [address], [address], 08/23/2015 12:15:16 08/23/19 16 08/23/2015 urina lysis , dipst ick Glucose Negati ve Not Available [address], [address], 08/23/2015 12:15:16 08/23/19 16 08/23/2015 urina lysis , dipst ick Appearance Clear Not Available [address], [address], 08/23/2015 12:15:16 08/23/19 16 08/23/2015 urina lysis , dipst ick Color Yellow Not Available [address], [address], 08/23/2015 12:15:16 10/12/19 14 10/11/2013 CBC WBC 9.1 K/? ? ?L 4.0-10 .0 Not Available [address], [address], 10/11/2013 14:52:43 10/12/19 14 10/11/2013 CBC RBC 4.89 M/? ? ?L 3.93-5 .22 Not Available [address], [address], 10/11/2013 14:52:43 10/12/19 14 10/11/2013 CBC HGB 13.9 g/dL 11.2-1 5.7 Not Available [address], [address], 10/11/2013 14:52:43 10/12/19 14 10/11/2013 CBC HCT 40.7 % 34.1-4 4.9 Not Available [address], [address], 10/11/2013 14:52:43 10/12/19 14 10/11/2013 CBC MCV 83.2 ? ? ?L 79.4-9 4.8 Not Available [address], [address], 10/11/2013 14:52:43 10/12/19 14 10/11/2013 CBC MCH 28.4 pg 25.6-3 2.2 Not Available [address], [address], 10/11/2013 14:52:43 10/12/19 14 10/11/2013 CBC MCHC 34.2 g/dL 32.2-3 5.5 Not Available [address], [address], 10/11/2013 14:52:43 10/12/19 14 10/11/2013 CBC plt 262.0 K/? ? ?L 182.0- 369.0 Not Available [address], [address], 10/11/2013 14:52:43 10/12/19 14 10/11/2013 CBC MPV 11.0 9.4-12 .3 Not Available [address], [address], 10/11/2013 14:52:43 10/12/19 14 10/11/2013 CBC neut% 61.8 % 34.0-7 1.1 Not Available [address], [address], 10/11/2013 14:52:43 10/12/19 14 10/11/2013 CBC neut# 5.6 1.6-6. 1 Not Available [address], [address], 10/11/2013 14:52:43 10/12/19 14 10/11/2013 CBC lymph % 29.0 % 19.3-5 1.7 Not Available [address], [address], 10/11/2013 14:52:43 10/12/19 14 10/11/2013 CBC lymph # 2.6 K/? ? ?L 1.2-3. 7 Not Available [address], [address], 10/11/2013 14:52:43 10/12/19 14 10/11/2013 CBC mono% 6.8 % 4.7-12 .5 Not Available [address], [address], 10/11/2013 14:52:43 10/12/19 14 10/11/2013 CBC mono# 0.6 0.2-0. 4 high Not Available [address], [address], 10/11/2013 14:52:43 10/12/19 14 10/11/2013 CBC eo% 2.2 % 0.7-5. 8 Not Available [address], [address], 10/11/2013 14:52:43 10/12/19 14 10/11/2013 CBC eo# 0.2 0.0-0. 4 Not Available [address], [address], 10/11/2013 14:52:43 10/12/19 14 10/11/2013 CBC baso% 0.2 % 0.1-1. 2 Not Available [address], [address], 10/11/2013 14:52:43 10/12/19 14 10/11/2013 CBC baso# 0.0 0.0-0. 1 low Not Available [address], [address], 10/11/2013 14:52:43 10/12/19 14 10/11/2013 CBC RDW-CV 14.7 % 11.7-1 4.4 high Not Available [address], [address], 10/11/2013 14:52:43 10/12/19 14 10/11/2013 ESR sed rate 20.0 0.0-15 .0 high Not Available [address], [address], 10/11/2013 16:06:36 10/12/19 14 10/11/2013 thyro id stimu latin g hormo ne (TSH) TSH 1.65 uIU/m L 0.50-6 .00 the ameri can colle ge of endoc rinol ogy and ameri can thyro id assoc iatio n recom mend goal TSH value s betwe en 1.0-2 .5 mIU/m L. Not Available [address], [address], 10/11/2013 16:53:42 10/12/19 14 10/13/2013 rheum atoid facto r rheumatoid factor 3.5 IU/mL 0.0-16 .0 <16.0 IU/mL - negat jennifer 16.0- 19.9 IU/mL - equiv ocal >20.0 IU/mL - posit jennifer Not Available [address], [address], 10/13/2013 14:06:56 10/12/19 14 10/13/2013 YAZMIN YAZMIN screen 0.41 0.00-0 .39 positive YAZMIN=s ample [facility] and titer . <0.4 -nega tive 0.40 - 1.10 -equi vocal >1.10 -posi tive Not Available [address], [address], 10/13/2013 14:06:57 10/12/19 14 10/14/2013 post scree n titer and lorenete rn YAZMIN pattern NEGATI VE normal Not Available [facility] [address], [address], 10/14/2013 21:44:52 10/12/19 14 10/14/2013 post scree n titer and camden rn antinuclear antibodies <1:40 titer normal refer ence range <1:40 negat jennifer 1:40- 1:80 low antib alma level >1:80 eleva noe antib alma level Not Available [facility] [address], [address], 10/14/2013 21:44:52 06/07/19 16 06/07/2015 CBC WBC 10.6 K/? ? ?L 4.0-10 .0 high Not Available [address], [address], 06/07/2015 10:50:51 06/07/19 16 06/07/2015 CBC RBC 5.20 M/? ? ?L 3.93-5 .22 Not Available [address], [address], 06/07/2015 10:50:51 06/07/19 16 06/07/2015 CBC HGB 13.6 g/dL 11.2-1 5.7 Not Available [address], [address], 06/07/2015 10:50:51 06/07/19 16 06/07/2015 CBC HCT 40.0 % 34.1-4 4.9 Not Available [address], [address], 06/07/2015 10:50:51 06/07/19 16 06/07/2015 CBC MCV 76.9 ? ? ?L 79.4-9 4.8 low Not Available [address], [address], 06/07/2015 10:50:51 06/07/19 16 06/07/2015 CBC MCH 26.2 pg 25.6-3 2.2 Not Available [address], [address], 06/07/2015 10:50:51 06/07/19 16 06/07/2015 CBC MCHC 34.0 g/dL 32.2-3 5.5 Not Available [address], [address], 06/07/2015 10:50:51 06/07/19 16 06/07/2015 CBC plt 239.0 K/? ? ?L 182.0- 369.0 Not Available [address], [address], 06/07/2015 10:50:51 06/07/19 16 06/07/2015 CBC MPV 11.3 9.4-12 .3 Not Available [address], [address], 06/07/2015 10:50:51 06/07/19 16 06/07/2015 CBC neut% 63.8 % 34.0-7 1.1 Not Available [address], [address], 06/07/2015 10:50:51 06/07/19 16 06/07/2015 CBC neut# 6.8 1.6-6. 1 high Not Available [address], [address], 06/07/2015 10:50:51 06/07/19 16 06/07/2015 CBC lymph % 25.8 % 19.3-5 1.7 Not Available [address], [address], 06/07/2015 10:50:51 06/07/19 16 06/07/2015 CBC lymph # 2.7 K/? ? ?L 1.2-3. 7 Not Available [address], [address], 06/07/2015 10:50:51 06/07/19 16 06/07/2015 CBC mono% 7.8 % 4.7-12 .5 Not Available [address], [address], 06/07/2015 10:50:51 06/07/19 16 06/07/2015 CBC mono# 0.8 0.2-0. 4 high Not Available [address], [address], 06/07/2015 10:50:51 06/07/19 16 06/07/2015 CBC eo% 2.4 % 0.7-5. 8 Not Available [address], [address], 06/07/2015 10:50:51 06/07/19 16 06/07/2015 CBC eo# 0.3 0.0-0. 4 Not Available [address], [address], 06/07/2015 10:50:51 06/07/19 16 06/07/2015 CBC baso% 0.2 % 0.1-1. 2 Not Available [address], [address], 06/07/2015 10:50:51 06/07/19 16 06/07/2015 CBC baso# 0.0 0.0-0. 1 low Not Available [address], [address], 06/07/2015 10:50:51 06/07/19 16 06/07/2015 CBC RDW-CV 15.3 % 11.7-1 4.4 high Not Available [address], [address], 06/07/2015 10:50:51 06/07/19 16 06/07/2015 HbA1c (hemo globi n A1c), blood hemoglobin A1C 5.7 % 4.8-6. 0 Goal: <7% in Patie nts with Diabe chula Not Available [address], [address], 06/07/2015 12:52:26 06/07/19 16 06/07/2015 HbA1c (hemo globi n A1c), blood estimated average glucose 116.9 mg/dL Not Available [address], [address], 06/07/2015 12:52:26 06/07/19 16 06/07/2015 gluco se, QN [mass /volu me], serum or plasm a glucose 85 mg/dL 70-100 Not Available [address], [address], 06/07/2015 15:40:46 06/07/19 16 06/07/2015 TSH, serum or plasm a TSH 1.40 uIU/m L 0.50-6 .00 The Ameri can Colle ge of Endoc rinol ogy and Ameri can Thyro id Assoc iatio n recom mend goal TSH value s betwe en 0.4-4 .0 mIU/m L. Not Available [address], [address], 06/07/2015 16:44:27 08/23/19 16 08/24/2015 cultu re, urine culture, urine, routine CULTU RE, URINE , ROUTI NE MICRO NUMBE R: [id number] TEST STATU S: FINAL SPECI MEN SOURC E: URINE SPECI MEN QUALI TY: ADEQU ATE RESUL T: Multi ple organ isms prese nt, each less than 10,00 0 CFU/m L. These organ isms, commo nly found on exter nal and inter nal genit mookie, are consi dered to be colon izers . No furth er testi ng perfo rmed. Not Available [facility] [address], [place], [address], 08/24/2015 13:05:17 Result Notes Documentation Provider Name and Address Organization Details Recorded Time Pap Test, Slide(s), Cervical : LSIL (ordered by Mayte Salazar CNM) Lucho To MD [address] [place] [address], [phone], [facility] 09/26/2015 12:41:56 Problems Name Problem SNOMED Code Status Onset Date Resolution Date Notes Provider Name and Address Organization Details Recorded Time Allergic rhinitis 39874385 Active Lucho To MD [address] [place] [address], [phone], [facility] 4 23:17:19 Urinary tract infectious disease 84936143 Active Naa Muniz MA [facility] 6 12:37:03 Problem Notes None recorded. Procedures Surgical History Date Name Laterality Status Provider Name and Address Organization Details Recorded Time 06/01/19 01 Cholecystectomy completed Lucho To MD [address] [place] [address], [phone], [facility] 10/11/2013 10:28:05 Imaging Results None recorded. Procedure Notes None recorded. Medical Equipment None Reported. Allergies No known drug allergies Medications Name Sig Start Date Stop Date Status Note LastModified by Organization Details LastModified Time cyclobenz aprine 10 mg tablet Take 1 tablet 3 times a day by oral route. 01/23 completed Not Available Not Available Not Available Pyridium 200 mg tablet Take 1 tablet 3 times a day by oral route for 2 days. 01/23 completed Not Available Not Available Not Available Flonase 50 mcg/actua tion nasal spray,itzel pension Inhale 1 spray every day by intranas al route. 2013 active Not Available Not Available Not Avai ilana melgozae (contrace ptive) 0.35 mg tablet Take 1 tablet every day by oral route. active wants to change birthcon trol-hanh r falling out Not Available Not Available Not Available loratadin e 10 mg tablet Take 1 tablet every day by oral route. 2013 active Not Available Not Available Not Avai lable Vitals Date Recorded Oxygen saturation Oxygen saturation in Arterial blood by Pulse oximetry Heart rate Body height Body temperature Systolic blood pressure Diastolic blood pressure Provider Name and Address Organization Details Last Updated DateTime 4 98 % 98 % 81 /min 158.75 cm 97.9 [degF] 90 mm[Hg] 70 mm[Hg] Rosa Lucio MA [facility] 4 11:56:04 Date Recorded Body weight Body height Body mass index (BMI) Systolic blood pressure Diastolic blood pressure Provider Name and Address Organization Details Last Updated DateTime 06/06/2015 253090.9 67631 g 158.75 cm 43.3 kg/m2 104 mm[Hg] 64 mm[Hg] Ester Girard MA [facility] 6 09:17:50 Date Recorded Body height Heart rate Body mass index (BMI) Body weight Systolic blood pressure Diastolic blood pressure Provider Name and Address Organization Details Last Updated DateTime 6 158.75 cm 64 /min 42.9 kg/m2 213286. 297202 g 104 mm[Hg] 62 mm[Hg] Naa Muniz [facility] 6 15:21:59 Date Recorded Body mass index (BMI) Body height Heart rate Body weight Systolic blood pressure Diastolic blood pressure Provider Name and Address Organization Details Last Updated DateTime 6 42.4 kg/m2 158.75 cm 60 /min 692618. 274759 g 108 mm[Hg] 60 mm[Hg] Naa Muniz [facility] 6 12:05:34 Social History Question Answer Notes LastModified by Organizat ion Details LastModified Time Tobacco Smoking Status Never Smoker Rosa Lucio MA [facility] 10/11/2013 10:19:20 What Is Your Level Of Alcohol Consumption? None Information not available 10/11/2013 What Is Your Level Of Caffeine Consumption? Moderate Coffee Daily & Soda Some Times Information not available 06/06/2015 How Much Tobacco Do You Chew? None Information not available 06/06/2015 What Type Of Diet Are You Following? REGULAR Information not available 10/11/2013 Which Illicit Or Recreational Drugs Have You Used? 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 0 Information not available 06/06/2015 Are There Any Guns Present In Your Home? No Information not available 10/11/2013 Live Alone Or With Others? With Others Information not available 10/11/2013 Patient Has Health Care Proxy Signed And In Chart No Forms Given stpick Information not available 04/16/2018 [facility] not available 10/11/2013 Mosquito Repellent Used Routinely Yes Information not available 06/06/2015 How Many Children Do You Have? 4 Information not available 10/11/2013 Are There Any Occupational Health Risks Where You Work? None Information not available 06/06/2015 Seat Belts Used Routinely Yes Information not available 10/11/2013 Are You Sexually Active? Yes Information not available 10/11/2013 Smoke Alarm [facility] Information not available 10/11/2013 What Types Of Sporting Activities Do You Participate In? None Information not available 06/06/2015 General Stress Level Low Information not available 06/06/2015 Do You Use Sunscreen Routinely? Yes Information not available 06/06/2015 Sex: Unknown Functional Status None recorded. Mental Status None recorded. Family History Relationship Description Onset Age of this Age Resolved Age Notes LastModified by Organization Details LastModified Time Mother Diabetes mellitus fkim Not available 2013 10:30:03 Mother Patient with cardiac pacemaker fkim Not available 2013 10:30:03 Mother Essential hypertension fkim Not available 10:30:03 Father Diabetes mellitus 59 fkim Not available 2013 10:30:03 Notes:No FHx of colon CA. Medical History No medical history recorded. Gynecological HistoryNo gynecological history recorded. Obstetrics History GPAL:G 0 P 0 0 0 0 Immunizations Vaccine Type Date Status Note Provider Nam e and Address Organization Details Recorded Time Influenza, split virus, quadrivalent, PF 06/06/2015 completed Not Available [facility] 0 02:20:14 Tdap 06/01/2013 completed Lucho To MD [address] [place] [address], [phone], [facility] 10/11/2013 10:30:03 Past Encounters Encounter ID Performer Location Encounter Start Date Encounter Closed Date Diagnosis/Indication Diagnosis SNOMED-CT Code Diagnosis ICD10 Code Diagnosis Note [id number] , [facility], [address] [place] [address] 10/11/2013 10:02:22 10/11/2013 11:01:02 Adult health examination 247052780 See Risk Assessment and Lifestyle Change Counseling section. Will request records from [facility] and [facility]. States her last Pap was UTD and negative. Home/vehic le/sexual safety reviewed. HIV/Hep C negative per report. Tdap UTD (received during her recent ) . Hand cramps 215740259 Pa tient with 1-month duration of stiffening of her hand. No clinical evidence of CTS. No deformitie s or swelling on exam. Likely due to overuse given her clinical history. Will check CBC/RF/YAZMIN /ESR/TSH. Referral to Occupation al Therapy for further evaluation /treatment . [id number] Evelia Burris, OT Physical Therapy, [facility] [address] [place] [address] 10/13/2013 15:04:16 10/14/2013 08:00:06 Hand cramps 491435018 [id number] Lucho To MD , [facility], [address] [place] [address] 02/22/2014 11:46:56 02/22/2014 12:17:02 Allergic rhinitis 00056725 Patient symptoms are more likely due to allergic rhinitis, rather than viral URI. Patient with hemodynami kellen stable without respirator y distress. Normal O2 sat with normal respirator y exam. Advised on ample oral hydration. Nasal saline irrigation and saline gargles recommende d. Trial of oral Loratadine and nasal Flonase. Strategies to avoid environmen yarely allergens discussed. Denies new pet or new living environmen t. Denies new personal hygiene products. Advised to contact the clinic with any worsening symptoms. Indication s for UC/ER use discussed. [id number] MD BARRY Chan, [facility], [address] [place] [address] 06/06/2015 08:48:26 06/06/2015 09:54:12 Adult health examination 483117985 Z00.00 See Risk Assessment and Lifestyle Change Counseling section above. Last Pap smear was 3 months ago at [facility] (was told normal). Influenza vaccine administer ed today. Tdap vaccine UTD. Recommende d fiber supplement ation for constipati on. Counseling 663737111 Z71 .9 Active or passive immunization 845338688 Z23 Fatigue 76064183 R53.83 Patient with ongoing fatigue. No sleep apnea symptoms. Check CBC, glucose, Hgb A1c and TSH. [id number] MINH Sims, [facility], [address] [place] [address] 06/21/2015 14:47:33 06/21/2015 15:53:27 Low back pain 392330796 M54.5 muscularsk eletal. NO apparent disk herniation . [id number] Sindi Lopez NP , [facility], [address] [place] [address] 08/23/2015 11:46:08 08/23/2015 12:26:54 Urinary tract infectious disease 25022823 N39.0 Push fluids f/u if no improvemen t in 72 hours or for fever or back pain. Health Concerns Section Related Observation LastModified by Organization Detai ls LastModified Time None Recorded Concern Status LastModified by Organization Details LastModified Time None Recorded Advance Directives Directive None Recorded Payers Encounter Date Sequence Insurance Name Policy Number Policy Sanchez Covered Member ID Sanchez Member ID Guarantor Name 10/13/2013 1 [facility] Project Repat PLAN (MEDICAID HMO) [id number] Junmaraxxeric Priest [id number] Junilixxa Priest 02/22/2014 1 [facility] A's Child [facility] PL[facility] (MEDICAID HMO) [id number] Junilixxa Priest [id number] Junilixxa Priest 06/06/2015 1 [facility] Project Repat PLAN (MEDICAID HMO) [id number] Marla Priest [id number] Junmaraxxa Priest 06/21/2015 1 [facility] HEALTH [facility] PL[facility] (MEDICAID HMO) [id number] Janakilixxa Priest [id number] Junilixxa Priest 08/23/2015 1 [facility] PLAN (MEDICAID HMO) [id number] Janmaraxxa Priest [id number] Janilixxa Priest Notes Date Note Type Note Provider Name and Address Organization Details Recorded Time 10/13/2013 text/html About 1-2 months ago noted while gripping something for a while , i.e. a knife, hairbrush,, have difficulty opening right hand, not painful. Right dominant. Have a 4 month old baby--use carrier, trying to use left hand more Evelia Burris OT [address] [place] [address], [phone], [facility] 10/13/2013 19:02:39 02/22/2014 text/html Patient presents to Urgent Care with 4-day duration of nasal congestion, hoarseness, frequent sneezing and generalized muscle ache. Denies F/C. Denies N/V/D. Denies cough. Denies sore throat. Also with CAMARGO. Lucho To MD [address] [place] [address], [phone], [facility] 02/22/2014 23:17:22 06/06/2015 text/html Physical Exam/FemaleReported bypatient.PHAPatient is here for a Personal Health Appraisal. She describes her health status as good. Patient's health is the same as last year.Risk Assessment and Lifestyle Change Counseling-female 27-39Reported bypatient.Coronary Artery Disease Risk Assesment:No Family history of coronary artery disease; No personal history of hypertension; Lipids in good range; No personal history of diabetes; No use of tobacco; No history of peripheral vascular disease, AAA, or carotid disease; No personal history of coronary artery disease Breast Cancer Risk Assessment:No family history of breast cancer; No history of breast cancer or dcis; No history of female hormone exposure Cervical Cancer Risk Assessment:No abnormal pap smears; Monogamous Lung Cancer Risk Assessment:Never smoked Risk for Sexually transmitted disease Assessment:Monogamous relationship Safety Risk Assessment:Uses seat belts Emergency Department and Urgent Care:Counseled about appropriate use of the emergency room and availability of urgent care at [facility] Patient previously transferred care from [facility] (Dr. Jones). Here for a PHA visit. Also followed by [facility]. Uncomplicated and delivery. (2-14 years olds). Undergone BTL with her OB in 2013. Denies F/C/N/V. Denies CP/SOB/YEPEZ. Previously complained of frequent stiffening and numbness of her right hand. Symptoms occur when trying to use her hand (washing dishes or cooking). Lasting 2-3 minutes. No weakness. Normal periods. Frequent constipation during her period. Lucho To MD [address] [place] [address], [phone], [facility] 06/06/2015 09:54:46 06/21/2015 text/html Was seen in ED l ast week after pulling her back after lifting a laundry basket at home. Was given cyclobenzaprine but it makes her sleepy so she only takes it at night. Ibuprofen during the day has been helpful. Has used the heat with some benefit. Slowly is getting better. Does not really do routine exercise. Has been trying to walk around and stand up and down so she doesn't get too stiff. Is willing to go to P.T. Feels a cracking in her back since she hurt it. Pain is located in left low back, feels like the muscle is big and hard. Sometimes it can go down side of left leg to her knee, which feels like a drilling sensation. Denies weakness in legs. No bowel/bladder issues. Sindi Lopez NP [address] [place] [address], [phone], [facility] 06/25/2015 07:41:06 08/23/2015 text/html a/G-Dysuria/ur inary symptomsReported bypatient.Duration:Sym ptoms began 2 days ago Severity:Symptoms worsening(yesterday, but better today) Associated Symptoms:No blood in the urine; No abdominal pain;Burning on urination;Urinary frequency Context:Symptoms similar to previous UTI's Modifying factors:drinking alot of water.Notes:no fever Sindi Lopez NP [address] [place] [address], [phone], [facility] 08/23/2015 12:40:03 OBGyn Episode No OBEpisode recorded.
--- OUTSIDE RECORDS SUMMARY | 2024-07-16 08:44 | XMS_ITS | Encounter Summary ---
Author Organization [employer] Address [address] [facility] [address] 7t [place] [address] Care Team Providers Care Associate Professor Computer Science Name Role Phone Name, Live WHITFIELD Primary Care Provider [phone] Encounter Details Date Type Department Care Team ([facility] st Contact Info) Description 04/29/[address] [facility] MEDICINE [address] [place] [address] Joann Sorto RN [address] [place] [address] Anemia, unspecified type Social History Tobacco Use [...] Description 07/29/2024 8:00 AM EST Office Visit [facility] ADULT DENTAL [address] [place] [address] Jose Cruz Wickpreet [address] [place] [address] documented as of this encounter Visit Diagnoses Diagnosis Anemia, unspecified type documented in this encounter Additional Health Concerns Assessment Noted Time PHQ-9 Depression Total Score: 0 06/10/19 24 9:52 AM EST documented as of this encounter Care Teams Associate Professor Computer Science Relationship Specialty Start Date End Date Name, MD Live [address] [place] [address] PCP - General Family Medicine 01/19/17 documented as of this encounter
--- OUTSIDE RECORDS SUMMARY | 2024-07-16 08:44 | XMS_ITS | Encounter Summary ---
Author Organization [employer] [facility] Address [address] [place] [address] 7 [place] [address] Care Team Providers Care Forensic Examiner Name Role Phone Name, Live WHITFIELD Primary Care Provider [phone] Encounter Details Date Type Department Care Team (Latest Contact Info) Description 07/19/2019 Abstract [facility] CONVERSIONS Dental, Provider, DDS Social History [...] Description 07/29/2024 8:00 AM EST Office Visit [facility] ADULT DENTAL [address] [place] [address] WickTanja mendesanpreet [address] [place] [address] documented as of this encounter Visit Diagnoses Not on filedocumented in this encounter Care Teams Forensic Examiner Relationship Specialty Start Date End Date Name, MD Live [address] [place] [address] PCP - General Family Medicine 01/19/17 documented as of this encounter
--- OUTSIDE RECORDS SUMMARY | 2024-07-16 08:44 | XMS_ITS | Encounter Summary ---
Author Organization [employer] Address [address] [facility] 7t [place] [address] Care Team Providers Care Crm System Administrator Name Role Phone Name, Live WHITFIELD Primary Care Provider [phone] Reason for Visit * Reason Comments Pre-visit Planning Pre visit planning L Encounter Details Date Type Department Care Team ([facility] st Contact Info) Description 07/05/2024 Patient Outreach [facility] MEDICINE [address] [place] [phone] Name, MD Live [address] [place] [address] Pre-visit Planning (Pre visit planning LVM ) [...] is your housing situation today? I have msisy fernandez 06/10/[address] you [...] the past 12 months, has t he [email or web address], gas, oil or water [employer] threatened to shut off services in your [...] 8:00 AM EST Office Visit [facility] ADULT DENTAL [address] [place] [address] Tanja Wickshayyet [address] [place] [address] documented as of this encounter Visit Diagnoses Not on filedocumented in this encounter Additional Health Concerns Assessment Noted Time PHQ-9 Depression Total Score: 0 06/10/19 24 9:52 AM EST documented as of this encounter Care Teams Crm System Administrator Relationship Specialty Start Date End Date Name, MD Live [address] [place] [address] PCP - General Family Medicine 01/19/17 documented as of this encounter
--- OUTSIDE RECORDS SUMMARY | 2024-07-16 08:44 | XMS_ITS | Encounter Summary ---
Author Organization [employer] Address [address] [facility] 7t [place] [address] Care Team Providers Care Import Coordinator Name Role Phone Name, Live WHITFIELD Primary Care Provider [phone] Reason for Visit * Reason Onset Date Comments Med Refill 10/06/2023 Encounter Details Date Type Department Care Team ([facility] st Contact Info) Description 10/06/2023 Refill [facility] MEDICINE [address] [place] [address] [phone] Name, MD Live [address] [place] [address] Social History Tobacco Use Types Packs/Day Years [...] Description 07/29/2024 8:00 AM EST Office Visit [facility] ADULT DENTAL [address] [place] [address] Fernanda Wick [address] [place] [address] documented as of this encounter Visit Diagnoses Not on filedocumented in this encounter Additional Health Concerns Assessment Noted Time PHQ-9 Depression Total Score: 0 06/10/19 24 9:52 AM EST documented as of this encounter Care Teams Import Coordinator Relationship Specialty Start Date End Date Name, MD Live [address] [place] [address] PCP - General Family Medicine 01/19/17 documented as of this encounter
--- OUTSIDE RECORDS SUMMARY | 2024-07-16 08:44 | XMS_ITS | Encounter Summary ---
Author Organization [employer] Address [address] [facility] [address] 7t [place] [address] Care Team Providers Care Cupola Melter Helper Name Role Phone Name, Live WHITFIELD Primary Care Provider [phone] Encounter Details Date Type Department Care Team ([facility] st Contact Info) Description 04/10/2023 Abstract [facility] ADULT DENTAL [address] [place] [address] Fortino Self DDS [address] [place] [address] Social History Tobacco Use Types Packs/Day Years [...] [facility] [address] [place] [address] Fernanda Wick [address] [place] [address] documented as of this encounter Visit Diagnoses Not on filedocumented in this encounter Care Teams Cupola Melter Helper Relationship Specialty Start Date End Date Name, MD Live [address] [place] [address] PCP - General Family Medicine 01/19/17 documented as of this encounter
--- OUTSIDE RECORDS SUMMARY | 2024-07-16 08:45 | XMS_ITS | Encounter Summary ---
Author Organization [employer] Address [address] [facility] 7t [place] [address] Care Team Providers Care Lease Analyst Name Role Phone Name, Live WHITFIELD Primary Care Provider [phone] Reason for Visit * Reason Onset Date Comments Med Refill 08/18/2023 Encounter Details Date Type Department Care Team ([facility] st Contact Info) Description 08/18/2023 Refill [facility] MEDICINE [address] [place] [address] [phone] Name, MD Live [address] [place] [address] Social History Tobacco Use Types Packs/Day Years [...] 8:00 AM EST Office Visit [facility] ADULT DENTAL 505 [place] [address] Fernanda Wick [address] [place] [address] documented as of this encounter Visit Diagnoses Not on filedocumented in this encounter Additional Health Concerns Assessment Noted Time PHQ-9 Depression Total Score: 0 06/10/19 24 9:52 AM EST documented as of this encounter Care Teams Lease Analyst Relationship Specialty Start Date End Date Name, MD Live [address] [place] [address] PCP - General Family Medicine 01/19/17 documented as of this encounter
--- OUTSIDE RECORDS SUMMARY | 2024-07-16 08:45 | XMS_ITS | Encounter Summary ---
Author Organization [employer] Address [address] [facility] 7t [place] [address] Care Team Providers Care Sheet Metal Former Name Role Phone Name, Live WHITFIELD Primary Care Provider [phone] Reason for Visit * Reason Onset Date Comments Med Refill 08/18/2023 Encounter Details Date Type Department Care Team ([facility] st Contact Info) Description 08/18/2023 Refill [facility] [address] [place] [address] [phone] Name, MD Live [address] [place] [address] Social History Tobacco Use Types Packs/Day Years [...] Description 07/29/2024 8:00 AM EST Office Visit [facility] ADULT DENTAL [address] [place] [address] Fernanda Wick 505 [place] [address] documented as of this encounter Visit Diagnoses Not on filedocumented in this encounter Additional Health Concerns Assessment Noted Time PHQ-9 Depression Total Score: 0 06/10/19 24 9:52 AM EST documented as of this encounter Care Teams Sheet Metal Former Relationship Specialty Start Date End Date Name, MD Live [address] [place] [address] PCP - General Family Medicine 01/19/17 documented as of this encounter
--- OUTSIDE RECORDS SUMMARY | 2024-07-16 08:45 | XMS_ITS | Encounter Summary ---
Author Organization [employer] [facility] Address [address] [place] [address] 7 [place] [address] Care Team Providers Care Nuclear Control Room Operator Name Role Phone Name, Live WHITFIELD Primary Care Provider [phone] Encounter Details Date Type Department Care Team (Latest Contact Info) Description 07/14/2018 Abstract [facility] CONVERSIONS Dental, Provider, DDS Social History [...] Description 07/29/2024 8:00 AM EST Office Visit [facility] ADULT DENTAL [address] [place] [address] WickTanja mendesanpreet [address] [place] [address] documented as of this encounter Visit Diagnoses Not on filedocumented in this encounter Care Teams Nuclear Control Room Operator Relationship Specialty Start Date End Date Name, MD Live [address] [place] [address] PCP - General Family Medicine 01/19/17 documented as of this encounter
--- OUTSIDE RECORDS SUMMARY | 2024-07-16 08:45 | XMS_ITS | Encounter Summary ---
Author Organization [employer] Address [address] [facility] 7t [place] [address] Care Team Providers Care Graduate Student Name Role Phone Name, Live WHITFIELD Primary Care Provider Reason for Visit * Reason Onset Date Comments Med Refill 10/13/2023 Encounter Details Date Type Department Care Team ([facility] st Contact Info) Description 10/13/2023 Refill [facility] MEDICINE [address] [place], [place] [phone] Name, MD Live 230 [place] [address] Social History Tobacco Use Types Packs/Day Years [...] 8:00 AM EST Office Visit [facility] ADULT DENTAL [address] [place] [address] Fernanda Wick [address] [place] [address] documented as of this encounter Visit Diagnoses Not on filedocumented in this encounter Additional Health Concerns Assessment Noted Time PHQ-9 Depression Total Score: 0 06/10/19 24 9:52 AM EST documented as of this encounter Care Teams Graduate Student Relationship Specialty Start Date End Date Name, MD Live 230 [place] [address] PCP - General Family Medicine 01/19/17 documented as of this encounter
[2024-07-16 08:54] LABS: MANUAL DIFF FLAG NO
[2024-07-16 09:19] LABS: Basophils Percent Auto 0.5 % (0-2); Eosinophils Absolute Auto 0.2 X10*3/uL (0.0-0.4); Eosinophils Percent Auto 2.8 % (0-4); Hematocrit 36.5 % (37.0-47.0); Hemoglobin 11.6 g/dl (12.0-16.0); Imm Gran Abs Auto 0.02 X10*3/uL (0.00-0.03); Imm Gran Pct Auto 0.3 % (0.0-0.4); Lymphocytes Absolute Auto 2.4 X10*3/uL (1.2-4.9); Lymphocytes Percent Auto 31.2 % (20-40); Mean Corpuscular HGB Conc 31.8 g/dl (31.0-35.0); Mean Corpuscular Hemoglobin 22.2 pg (27.0-33.0); Mean Corpuscular Volume 69.8 fL (80.0-98.0); Mean Platelet Volume 10.5 fL (9.4-12.3); Monocytes Absolute Auto 0.6 X10*3/uL (0.1-1.2); Monocytes Percent Auto 8.3 % (2-11); Neutrophils Absolute Auto 4.4 x10*3/uL (2.0-8.3); Neutrophils Percent Auto 56.9 % (45-73); Platelet Count 277 X10*3/uL (160-400); Red Blood Count 5.23 X10*6/uL (4.20-5.50); Red Cell Distribution Width 20.1 % (11.0-16.0); White Blood Count 7.7 X10*3/uL (4.8-10.8)
[2024-07-16 10:00] LABS: Alanine Aminotransferase 15 U/L (0-31); Anion Gap 10 (12-20); Aspartate Amino Transferase 21 U/L (5-31); Bilirubin Total 0.7 mg/dL (0.0-1.0); Blood Urea Nitrogen 8 mg/dL (9-16); Calcium 9.2 mg/dL (8.4-10.2); Carbon Dioxide 26 mmol/L (22-29); Chloride 110 mmol/L (96-108); Cholesterol 142 mg/dL (<200); Estimated Glomerular Filt Rate > 60; Glucose Random 85 mg/dL (60-115); HDL Cholesterol 53 mg/dL (>40); Iron 32 mcg/dL (30-160); LDL Cholesterol Calculated 77 mg/dL (<100); Percent Iron Saturation 9 % (15-50); Sodium 142 mmol/L (135-145); Total Iron Binding Capacity 338 mcg/dL (228-428); Total Protein 7.4 g/dL (6.5-8.0); Triglycerides 64 mg/dL (<150); Unsaturated Iron Binding 306 ug/dL
[2024-07-16 10:27] LABS: Alkaline Phosphatase 76 U/L (39-117)
== END 2024-07-16 08:42 | disposition home or self-care (01) ==
LOC: HO.LAB 08:41
PROVIDERS: PCP Internal Medicine Geriatric Medicine; Visit Provider Internal Medicine Geriatric Medicine
DX: Z00.00 Encounter for general adult medical examination without abnormal findings (principal); D50.8 Other iron deficiency anemias; Z13.6 Encounter for screening for cardiovascular disorders
CPT/HCPCS: 36415; 80053; 80061; 83540; 85025

== ENCOUNTER 2024-07-20 07:55 | Outpatient (REF) | payer OTHER, MEDICAID, SELFPAY ==
--- OUTSIDE RECORDS SUMMARY | 2024-07-20 08:33 | XMS_ITS | Encounter Summary ---
Author Organization [facility] Address [address] [place] [address] Care Team Providers Care Beverage Sales Consultant Name Role Phone Name, Live WHITFIELD Primary Care Provider [phone] Encounter Details Date Type Department Care Team ([facility] st Contact Info) Description 04/29/2024 Orders Only [facility] MED[facility] [address] [place] [address] Joann Sorto RN [address] [place] [address] Anemia, unspecified type Social History Tobacco Use [...] [facility]ULT [facility] [address] [place] [address] Jose Cruz Wickpreet [address] [place] [address] documented as of this encounter Visit Diagnoses Diagnosis Anemia, unspecified type documented in this encounter Additional Health Concerns Assessment Noted Time PHQ-9 Depression Total Score: 0 06/10/19 24 9:52 AM EST documented as of this encounter Care Teams Beverage Sales Consultant Relationship Specialty Start Date End Date Name, MD Live [address] [place] [address] PCP - General Family Medicine 01/19/17 documented as of this encounter
--- OUTSIDE RECORDS SUMMARY | 2024-07-20 08:33 | XMS_ITS | Encounter Summary ---
Author Organization [facility] Address [address] [place] [address] Care Team Providers Care Electronic Tester Name Role Phone Name, Live WHITFIELD Primary Care Provider [phone] Encounter Details Date Type Department Care Team ([facility] st Contact Info) Description 06/24/2023 Abstract [facility] MEDICINE [address] [place] [address] Name, MD Live [address] [place] [address] Social History Tobacco Use Types Packs/Day Years [...] 07/29/2024 8:00 AM EST Office Visit [facility] [address] [place] [address] Tanja Wickanpreet [address] [place] [address] documented as of this encounter Procedures Procedure [...] documented as of this encounter Care Teams Electronic Tester Relationship Specialty Start Date End Date Name, MD Live [address] [place] [address] PCP - General Family Medicine 01/19/17 documented as of this encounter
--- OUTSIDE RECORDS SUMMARY | 2024-07-20 08:33 | XMS_ITS | Clinical Summary ---
Author Organization [employer] Address [address] [facility] 7t [place] [address] Care Team Providers Care Registered Radiologic Technologist Name Role Phone Name, Live WHITFIELD Primary Care Provider [phone] Allergies Active Allergy Reactions Criticality Noted Date [...] 06/03/2022 Overview (10/01/2022): 2019 [place] [facility] Wt prior to surgery was 2029 H/O [...] Description 07/14/2024 9:15 AM EST Office Visit [address] [address] Live Mcknight MD PE (physical exam), routine (Primary Dx); Other iron deficiency anemia 07/12/[address] [address] Renée Cha MA chartprep 07/08/2024 Orders Only GENERIC EXTERNAL DATA DEPARTMENT Provider, Generic External Data 07/07/2024 Travel 07/05/2024 Patient Outreach [address] [address] Live Mcknight MD Pre-visit Planning (Pre visit planning LVM ) 2024 10:20 AM EST Office Visit [facility] [address] [place] [phone] Lucho To MD Acute conjunctivitis of left eye, unspecified acute conjunctivitis type (Primary Dx) 04/29/2024 Orders Only [address] [address] Joann Sorto, LILLY Anemia, unspecified type 04/27/2024 2:30 PM EST Office Visit [facility] [address] [place] [address] Fernanda Wick Visit for periodic health examination (Primary Dx) 04/22/2024 Orders Only [address] [address] Live Mcknight MD 04/22/2024 Orders Only [facility] [address] [place] [address] Joann Sorto, RN Anemia, unspecified type 04/20/2024 Telephone [facility] [address] [place] [address] Joann Sorto, engraver tender Orders 04/19/2024 3:00 PM EST Office Visit [facility] [address] [place] [address] Jos Todd Dental calculus (Primary Dx) 04/19/2024 10:00 AM EST Office Visit [facility] [address] [place] [address] Live Mcknight MD Obesity (BMI 30-39.9) (Primary [...] Office Visit [facility] AD[facility] [address] [place] [address] Fernanda Wick [address] [place] [address] Health Maintenance Due Date Last Done Comments [...] Blood Count 7.7 4.8 - 10.8 X10*3/uL [facility] Red Blood Count 5.23 4.20 - 5.50 X10*6/uL [facility] Hemoglobin 11.6(L) 12.0 - 16.0 g/dl [facility] Hematocrit 36.5(L) 37.0 - 47.0 % [facility] Mean Corpuscular Volume 69.8(L) 80.0 - 98.0 fL [facility] Mean Corpuscular Hemoglobin 22.2(L) 27.0 - 33.0 pg [facility] Mean Corpuscular HGB Conc 31.8 31.0 - 35.0 g/dl [facility] Red Cell Distribution Width 20.1(H) 11.0 - 16.0 % [facility] Platelet Count 277 160 - 400 X10*3/uL [facility] Mean Platelet Volume 10.5 9.4 - 12.3 fL [facility] Neutrophils Percent Auto 56.9 45 - 73 % [facility] Imm Gran Pct Auto 0.3 0.0 - 0.4 % [facility] Lymphocytes Percent Auto 31.2 20 - 40 % [facility] Monocytes Percent Auto 8.3 2 - 11 % [facility] Eosinophils Percent Auto 2.8 0 - 4 % [facility] Basophils Percent Auto 0.5 0 - 2 % [facility] NRBC Pct Auto 0.0 0.0 - 0.2 /100WBC [facility] Neutrophils Absolute Auto 4.4 2.0 - 8.3 x10*3/uL [facility] Imm Gran Abs Auto 0.02 0.00 - 0.03 X10*3/uL [facility] Lymphocytes Absolute Auto 2.4 1.2 - 4.9 X10*3/uL [facility] Monocytes Absolute Auto 0.6 0.1 - 1.2 X10*3/uL [facility] Eosinophils Absolute Auto 0.2 0.0 - 0.4 X10*3/uL [facility] Basophils Absolute Auto 0.0 0.0 - 0.2 X10*3/uL [facility] NRBC Abs Auto 0.000 0.0 - 0.012 X10*3/uL [facility] Blood Venous blood specimen / Unknown 07/16/2024 8:53 AM EST 07/16/2024 8:53 AM EST us Live Mcknight MD LAB BLOOD ORDERABLES Final Resul t [facility] [address] [place] [phone] [phone] * (ABNORMAL) Iron And Total Iron Binding Capacity (07/16/2024 8:53 AM EST) Only the most recent of2 resultswithin the time period is included. Iron 32 30 - 160 mcg/dL [facility] Total Iron Binding Capacity 338 228 - 428 mcg/dL [facility] Percent Iron Saturation 9(L) 15 - 50 % [facility] Unsaturated Iron Binding 306 ug/dL [facility] Blood Venous blood specimen / Unknown 07/16/2024 8:53 AM EST 07/16/2024 8:53 AM EST us Live Name MD LAB BLOOD ORDERABLES Final Resul t [facility] [address] [place] [phone] * Lipid Panel, Standard (07/16/2024 8:53 AM EST) Triglycerides 64 <150 mg/dL [facility] Comment:Desirable Triglyceri de: less than 150 mg/dLBorderline High Triglyceride 150-199 mg/dLHigh Triglyceride: 200-499 mg/dLVery High Triglyceride: greater than or equal to 5OO mg/dL Cholesterol 142 <200 mg/dL [facility] Comment:Desirable Cholestero l: less than 200 mg/dLBorderline High Cholesterol: 200-239 mg/dLHigh Cholesterol: greater than 239 mg/dL LDL Cholesterol Calculated 77 <100 mg/dL [facility] Comment:Desirable LDL: less than 100 mg/dLNear Optimal/Above Optimal LDL: 110- 129 mg/dLBorderline High LDL: 130-159 mg/dLHigh LDL: 160-189 mg/dLVery High LDL: greater than or equal to 190 mg/dL HDL Cholesterol 53 >40 mg/dL [facility] Comment:Desirable HDL: great er than 40 mg/dL Note: This HDL assay may give artificially low results in patients with liver disease. Blood Venous blood specimen / Unknown 07/16/2024 8:53 AM EST 07/16/2024 8:53 AM EST us Live Mcknight MD LAB BLOOD ORDERABLES Final Resul t [facility] [address] [place] [phone] * (ABNORMAL) Comprehensive Metabolic Panel (07/16/2024 8:53 AM EST) Sodium 142 135 - 145 mmol/L [facility] Potassium 4.0 3.3 - 5.1 mmol/L [facility] Chloride 110(H) 96 - 108 mmol/L [facility] Carbon Dioxide 26 22 - 29 mmol/L [facility] Anion Gap 10(L) 12 - 20 [facility] Urea Nitrogen (BUN) 8(L) 9 - 16 mg/dL [facility] Creatinine, Serum 0.70 0.5 - 1.4 mg/dL [facility] Estimated Glomerular Filt Rate >60 [facility] Comment:Chronic Kidney Disea se: Estimated GFR < 60 mL/min/1.34l9Sddlvp Kidney Disease: Estimated GFR < 15 mL/min/1.73m2 Glucose 85 60 - 115 mg/dL [facility] Calcium 9.2 8.4 - 10.2 mg/dL [facility] Bilirubin, Total 0.7 0.0 - 1.0 mg/dL [facility] Aspartate Amino Transferase 21 5 - 31 U/L [facility] Alanine Aminotransferase 15 0 - 31 U/L [facility] Total Protein 7.4 6.5 - 8.0 g/dL [facility] Albumin Level 4.0 3.5 - 5.0 g/dL [facility] Alkaline Phosphatase 76 39 - 117 U/L [facility] Blood Venous blood specimen / Unknown 07/16/2024 8:53 AM EST 07/16/2024 8:53 AM EST us Live Mcknight MD LAB BLOOD ORDERABLES Final Resul t Performing Organization Address [facility] Co de Phone Number [facility] [address] [place] [phone] * (ABNORMAL) HPV DNA, Low/High Risk (07/08/2024 11:31 AM EST) HPV High Risk Positive(A) Negative [facility] HPV Genotype 16 Negative Negative [facility] HPV Genotype 18 Negative Negative [facility] Comment:HPV testing performe d at [facility] (CLIA#[id number]), [address] [place] [address].Testing for HPV was performed using the [employer] YSABEL 6800system. The presence of HPV in [...] AM EST 07/11/2024 8:20 AM EST Narrative [facility] - 07/18/2024 9:10 AM EST Generic External Data Provider LAB BLOOD ORDERAB LES Final Result Performing Organization Address [facility] Co de Phone Number [facility] [address] [place] [phone] * Pap Smear (07/08/2024 11:31 AM EST) 07/08/2024 11:3 1 AM EST 07/11/2024 8:20 AM EST Narrative [facility] - 07/19/2024 10:20 AM EST ----- ------- Name: Veronika Aleman ? Age/Sex: 39/F ? : 1985 Unit#: [id number] ?? Attend Dr: Quinton Eduardo MD ?Re07/08/24 ?Status: DEP REF ? Location: HO.LNP ?Disch: ? ----- ------- SPEC : [id number] ? RECD: 07/11/24 ? STATUS: ??SOUT ? REQ NUM: [id number] ? BRUCE: 07/08/24 ? SUBM DR: Quinton [...] Copies To: ?? Name,Live WHITFIELD ?? [address] [facility] ?? [place] [address] ?? [phone] ?? Quinton Eduardo MD ?? [facility] ?? [address] [facility] [address] ?? [place] [address] ?? [phone] ----- ------- Signed (signature on file) Jessica Lopes 07/19/24 1020 ? ----- ------- ? END OF REPORT ? Generic External Data Provider LAB CYTOLOGY ORDE RABSARA Final Result [facility] [address] [place] [phone] * Client Education Tracking (04/22/2024 12:00 AM EST) Client Education Tracking [employer] [facility] Comment: The Requisition we received did not include a [employer] account number. To prevent delays in testing [...] ORDERABLES F inal Result Performing Organization Address [facility] Co de Phone Number [facility] [address], [place] [address] [employer] [facility] [address] [place] [phone] * Fecal Globin by Immunochemistry (04/22/2024 12:00 AM EST) Pathologist [facility] Fecal Globin By Immunochemistry SEE NOTE [employer] [place] [facility] Comment: ??FECAL GLOBIN BY IMMUNOCHEMISTRY ?Micro Number: ?[id number] ??Test Status: ? Final ??Specimen Source: ?? Insure (tm) fobt test card ??Specimen Quality: ??Adequate ??Fecal Globin: ?Not Detected 04/22/2024 04/29/2024 7:5 0 AM EST Narrative [facility] - 04/30/2024 3:09 PM EST FASTING: UNKNOWN Live Mcknight MD LAB BODY FLUIDS AND STOOLS ORDER ALYSSA Final Result Performing Organization Address City/[facility]/ZIP Co de Phone Number [facility] [address], [place] [address] [employer] [facility] [address] [place] [phone] * (ABNORMAL) Ferritin (04/19/2024 11:02 AM EST) Ferritin 9(L) 10 - 122 ng/mL [facility] Blood Venous blood specimen / Unknown 04/19/2024 11:02 AM EST 04/19/2024 1:08 PM EST Live Mcknight MD LAB BLOOD ORDERABLES Final Resul t Performing Organization Address [facility] Co de Phone Number [facility] [address] [place] [phone] [phone] * Hepatitis C Antibody with Reflex to HCV, RNA, Quantitative, Real-Time PCR (06/13/2023 9:43 AM EST) Pathologist [facility] Hepatitis C Antibody Nonreactive Nonreactive [facility] Comment:Antibodies to HCV no t detected; does not exclude early acuteHCV infection. Blood Venous blood specimen / Unknown 06/13/2023 9:43 AM EST 06/13/2023 9:43 AM EST Live Mcknight MD LAB BLOOD ORDERABLES Final Resul t Performing Organization Address [facility]/ZIP Co de Phone Number [facility] [address] [place] [address] [phone] from Last 3 Months or Most Recently Relevant to Health Maintenance Insurance Member Subscriber Plan / Payer (Ef fective 2022-Present) Name:Veronika Aleman Relation to Subscriber:Self Name:Veronika Aleman Payer ID:Not on file Group ID:Not on file Type:Medicaid Address: [address] [place] [address] [place] [address] , [address] [place] [address] * Guarantor: Veronika Aleman Account Type Relation to Patient Date of Phone Billing Address Dental Self [address] [place] [address] [facility] STAND [place] [id number] [place] [address] [place] [address] [place] [address] [place] [address] Care Teams Registered Radiologic Technologist Relationship Specialty Start Date End Date Name, MD Live [address] [place] [address] [place] [address] PCP - General Family Medicine 01/19/17
--- OUTSIDE RECORDS SUMMARY | 2024-07-20 08:33 | XMS_ITS | Encounter Summary ---
Author Organization [employer] Address [address] [facility] [address] 7t [place] [address] Care Team Providers Care Curriculum And Assessment Coordinator Name Role Phone Name, Live WHITFIELD Primary Care Provider [phone] Encounter Details Date Type Department Care Team ([facility] st Contact Info) Description 04/22/2024 Orders Only [facility] [address] [place] [address] Joann Sorto RN [address] [place] [address] Anemia, unspecified type Social History Tobacco Use [...] [facility] [address] [place] [address] Jose Cruz Wickpreet [address] [place] [address] documented as of this encounter Visit Diagnoses Diagnosis Anemia, unspecified type documented in this encounter Additional Health Concerns Assessment Noted Time PHQ-9 Depression Total Score: 0 06/10/19 24 9:52 AM EST documented as of this encounter Care Teams Curriculum And Assessment Coordinator Relationship Specialty Start Date End Date Name, MD Live [address] [place] [address] PCP - General Family Medicine 01/19/17 documented as of this encounter
--- OUTSIDE RECORDS SUMMARY | 2024-07-20 08:33 | XMS_ITS | Encounter Summary ---
Author Organization [email or web address] Address [address] [facility] [address] 7[address] [place] [address] Care Team Providers Care Machine Shop Lead Man Name Role Phone Name, Live WHITFIELD Primary Care Provider [phone] Reason for Visit * Reason Onset Date Comments chartprep 07/12/2024 Encounter Details Date Type Department Care Team ([facility] st Contact Info) Description 07/12/2024 Telephone [facility] [address] [place] [address] Renée Cha MA chartprep Social History Tobacco [...] Upcoming Encounters Date Type Department Care Team ([facility] st Contact Info) Description 07/29/2024 8:00 AM EST Office Visit [facility] [address] [place] [address] eFrnanda Wick [address] [place] [address] documented as of this encounter Visit Diagnoses Not on filedocumented in this encounter Additional Health Concerns Assessment Noted Time PHQ-9 Depression Total Score: 0 06/10/19 24 9:52 AM EST documented as of this encounter Care Teams Machine Shop Lead Man Relationship Specialty Start Date End Date Name, MD Live [address] [place] [address] PCP - General Family Medicine 01/19/17 documented as of this encounter
--- OUTSIDE RECORDS SUMMARY | 2024-07-20 08:33 | XMS_ITS | Encounter Summary ---
Author Organization [employer] Address [address] [place] [address] 7 [place] [address] Care Team Providers Care Christian Science Nurse Name Role Phone Name, Live WHITFIELD Primary Care Provider [phone] Encounter Details Date Type Department Care Team (Late st Contact Info) Description 12/15/[address] [facility] [address] [place] [address] Name, MD Live [address] [place] [address] Social History Tobacco Use Types Packs/Day Years [...] Description 07/29/2024 8:00 AM EST Office Visit [facility] ADULT D[facility]AL [address] [place], [place] [phone] Fernanda Wick [address] [place] [address] documented as of this encounter Procedures Procedure Name Priority Date/Time Associated Diagnosis Comments COLPOSCOPY Routine 05/13/2022 12:00 AM EST documented in this encounter Results * Colposcopy (05/13/2022 12:00 AM EST) us Historical Provider IN CLINIC/BEDSIDE ORDERAB LES Final Result documented in this encounter Visit Diagnoses Not on filedocumented in this encounter Care Teams Christian Science Nurse Relationship Specialty Start Date End Date Name, MD Live [address] [place] [phone] PCP - General Family Medicine 01/19/17 documented as of this encounter
--- OUTSIDE RECORDS SUMMARY | 2024-07-20 08:33 | XMS_ITS | Encounter Summary ---
Author Organization [employer] Address [address] [facility] [address] [place] [address] Care Team Providers Care Recycling Assistant Name Role Phone Name, Live WHITFIELD Primary Care Provider [phone] Encounter Details Date Type Department Care Team [...] [facility] ADULT D[facility] [address] [place] [address] Jose Cruz Wicksincerejacob [address] [place] [address] documented as of this encounter Visit Diagnoses Not on filedocumented in this encounter Additional Health Concerns Assessment Noted Time PHQ-9 Depression Total Score: 0 06/10/19 24 9:52 AM EST documented as of this encounter Care Teams Recycling Assistant Relationship Specialty Start Date End Date Name, MD Live [address] [place] [address] PCP - General Family Medicine 01/19/17 documented as of this encounter
--- OUTSIDE RECORDS SUMMARY | 2024-07-20 08:33 | XMS_ITS | Encounter Summary ---
Author Organization [employer] Address [address] [facility] [address] [place] [address] Care Team Providers Care Fund Accountant Name Role Phone Name, Live WHITFIELD Primary Care Provider [phone] Encounter Details Date Type Department Care Team ([facility] st Contact Info) Description 04/10/2023 Abstract [facility] ADULT DENT[facility] [address] [place] [address] Fortino Self DDS [address] [place] [address] Social History Tobacco Use Types Packs/Day Years [...] 8:00 AM EST Office Visit [facility] ADULT D[facility] [address] [place] [address] Fernanda Wick [address] [place] [address] documented as of this encounter Visit Diagnoses Not on filedocumented in this encounter Care Teams Fund Accountant Relationship Specialty Start Date End Date Name, MD Live [address] [place] [address] PCP - General Family Medicine 01/19/17 documented as of this encounter
--- OUTSIDE RECORDS SUMMARY | 2024-07-20 08:33 | XMS_ITS | Encounter Summary ---
Author Organization [employer] Address [address] [facility] 7t [place] [address] Care Team Providers Care Paint Spraying Machine Operator Helper Name Role Phone Name, Live WHITFIELD Primary Care Provider [phone] Reason for Visit * Reason Comments Pre-visit Planning Pre visit planning L Encounter Details Date Type Department Care Team ([facility] st Contact Info) Description 07/05/2024 Patient Outreach [facility] [address] [place] [phone] Name, MD Live [address] [place] [address] Pre-visit Planning (Pre visit planning LVM ) [...] the past 12 months, has t he [employer], gas, oil or water [employer] threatened to shut off services in your [...] Description 07/29/2024 8:00 AM EST Office Visit [facility] ADULT DENTAL [address] [place] [address] Tanja Wickshayyet [address] [place] [address] documented as of this encounter Visit Diagnoses Not on filedocumented in this encounter Additional Health Concerns Assessment Noted Time PHQ-9 Depression Total Score: 0 06/10/19 24 9:52 AM EST documented as of this encounter Care Teams Paint Spraying Machine Operator Helper Relationship Specialty Start Date End Date Name, MD Live [address] [place] [address] PCP - General Family Medicine 01/19/17 documented as of this encounter
--- OUTSIDE RECORDS SUMMARY | 2024-07-20 08:33 | XMS_ITS | Encounter Summary ---
Author Organization [employer] Address [address] [facility] 7 [place] [address] Care Team Providers Care Icer Hand Name Role Phone NameLive MD Primary Care Provider [phone] Reason for Visit * Reason Comments Med Change Request Encounter Details Date Type Department Care Team ([facility] st Contact Info) Description 10/01/2022 Refill [facility] MEDICINE [address] [place] [address] Name, MD Live [address] [place] [address] Social History Tobacco Use Types Packs/Day Years [...] Description 07/29/2024 8:00 AM EST Office Visit [facility] ADULT [facility] [address] [place] [address] Jose Cruz Wickpreet [address] [place] [address] documented as of this encounter Visit Diagnoses Not on filedocumented in this encounter Care Teams Icer Hand Relationship Specialty Start Date End Date Name, MD Live [address] [place] [address] PCP - General Family Medicine 01/19/17 documented as of this encounter
--- OUTSIDE RECORDS SUMMARY | 2024-07-20 08:33 | XMS_ITS | Encounter Summary ---
Author Organization [employer] Address [address] [facility] 7t [place] [address] Care Team Providers Care Patient Representative Name Role Phone Name, Live WHITFIELD Primary Care Provider [phone] Reason for Visit * Reason Comments Annual Exam Encounter Details Date Type Department Care Team ([facility] Contact Info) Description 07/14/2024 9:15 AM EST Office Visit [facility] MEDICINE [address] [place] [phone] Name, MD Live [address] [place] [phone] PE (physical exam), routine (Primary Dx); Other [...] Description 07/29/2024 8:00 AM EST Office Visit [facility] ADULT D[facility] [address] [facility] [place] [address] Fernanda Wick [address] [facility] [place] [address] documented as of this encounter Procedures Procedure [...] 8:53 AM EST) Triglycerides 64 <150 mg/dL [facility] Comment:Desirable Triglyceri de: less than 150 mg/dLBorderline High Triglyceride 150-199 mg/dLHigh Triglyceride: 200-499 mg/dLVery High Triglyceride: greater than or equal to 5OO mg/dL Cholesterol 142 <200 mg/dL [facility] Comment:Desirable Cholestero l: less than 200 mg/dLBorderline High Cholesterol: 200-239 mg/dLHigh Cholesterol: greater than 239 mg/dL LDL Cholesterol Calculated 77 <100 mg/dL [facility] Comment:Desirable LDL: less than 100 mg/dLNear Optimal/Above Optimal LDL: 110- 129 mg/dLBorderline High LDL: 130-159 mg/dLHigh LDL: 160-189 mg/dLVery High LDL: greater than or equal to 190 mg/dL HDL Cholesterol 53 >40 mg/dL [facility] Comment:Desirable HDL: great er than 40 mg/dL Note: This HDL assay may give artificially low results in patients with liver disease. Blood Venous blood specimen / Unknown 07/16/2024 8:53 AM EST 07/16/2024 8:53 AM EST us Live Mcknight MD LAB BLOOD ORDERABLES Final Resul t [facility] [address] [place] [address] [phone] * (ABNORMAL) Comprehensive Metabolic Panel (07/16/2024 8:53 AM EST) Sodium 142 135 - 145 mmol/L [facility] Potassium 4.0 3.3 - 5.1 mmol/L [facility] Chloride 110(H) 96 - 108 mmol/L [facility] Carbon Dioxide 26 22 - 29 mmol/L [facility] Anion Gap 10(L) 12 - 20 [facility] Urea Nitrogen (BUN) 8(L) 9 - 16 mg/dL [facility] Creatinine, Serum 0.70 0.5 - 1.4 mg/dL [facility] Estimated Glomerular Filt Rate >60 [facility] Comment:Chronic Kidney Disea se: Estimated GFR < 60 mL/min/[id number] Kidney Disease: Estimated GFR < 15 mL/min/1.73m2 Glucose 85 60 - 115 mg/dL [facility] Calcium 9.2 8.4 - 10.2 mg/dL [facility] Bilirubin, Total 0.7 0.0 - 1.0 mg/dL [facility] Aspartate Amino Transferase 21 5 - 31 U/L [facility] Alanine Aminotransferase 15 0 - 31 U/L [facility] Total Protein 7.4 6.5 - 8.0 g/dL [facility] Albumin Level 4.0 3.5 - 5.0 g/dL [facility] Alkaline Phosphatase 76 39 - 117 U/L [facility] Blood Venous blood specimen / Unknown 07/16/2024 8:53 AM EST 07/16/2024 8:53 AM EST us Live Mcknight MD LAB BLOOD ORDERABLES Final Resul t Performing Organization Address [facility] de Phone Number [facility] [address] [place] [phone] * (ABNORMAL) Iron And Total Iron Binding Capacity (07/16/2024 8:53 AM EST) [facility] Iron 32 30 - 160 mcg/dL [facility] Total Iron Binding Capacity 338 228 - 428 mcg/dL [facility] Percent Iron Saturation 9(L) 15 - 50 % [facility] Unsaturated Iron Binding 306 ug/dL [facility] Blood Venous blood specimen / Unknown 07/16/2024 8:53 AM EST 07/16/2024 8:53 AM EST us Live Mcknight MD LAB BLOOD ORDERABLES Final Resul t Performing Organization Address [facility] de Phone Number [facility] [address] [place] [phone] * (ABNORMAL) CBC auto differential (07/16/2024 8:53 AM EST) [facility] White Blood Count 7.7 4.8 - 10.8 X10*3/uL [facility] Red Blood Count 5.23 4.20 - 5.50 X10*6/uL [facility] Hemoglobin 11.6(L) 12.0 - 16.0 g/dl [facility] Hematocrit 36.5(L) 37.0 - 47.0 % [facility] Mean Corpuscular Volume 69.8(L) 80.0 - 98.0 fL [facility] Mean Corpuscular Hemoglobin 22.2(L) 27.0 - 33.0 pg [facility] Mean Corpuscular HGB Conc 31.8 31.0 - 35.0 g/dl [facility] Red Cell Distribution Width 20.1(H) 11.0 - 16.0 % [facility] Platelet Count 277 160 - 400 X10*3/uL [facility] Mean Platelet Volume 10.5 9.4 - 12.3 fL [facility] Neutrophils Percent Auto 56.9 45 - 73 % [facility] Imm Gran Pct Auto 0.3 0.0 - 0.4 % [facility] Lymphocytes Percent Auto 31.2 20 - 40 % [facility] Monocytes Percent Auto 8.3 2 - 11 % [facility] Eosinophils Percent Auto 2.8 0 - 4 % [facility] Basophils Percent Auto 0.5 0 - 2 % [facility] NRBC Pct Auto 0.0 0.0 - 0.2 /100WBC [facility] Neutrophils Absolute Auto 4.4 2.0 - 8.3 x10*3/uL [facility] Imm Gran Abs Auto 0.02 0.00 - 0.03 X10*3/uL [facility] Lymphocytes Absolute Auto 2.4 1.2 - 4.9 X10*3/uL [facility] Monocytes Absolute Auto 0.6 0.1 - 1.2 X10*3/uL [facility] Eosinophils Absolute Auto 0.2 0.0 - 0.4 X10*3/uL [facility] Basophils Absolute Auto 0.0 0.0 - 0.2 X10*3/uL [facility] NRBC Abs Auto 0.000 0.0 - 0.012 X10*3/uL [facility] Blood Venous blood specimen / Unknown 07/16/2024 8:53 AM EST 07/16/2024 8:53 AM EST us Live Mcknight MD LAB BLOOD ORDERABLES Final Resul t [facility] [address] [place] [address] [phone] documented in this encounter Visit Diagnoses Diagnosis PE (physical exam), routine- Primary Other iron deficiency anemia documented in this encounter Additional Health Concerns Assessment Noted Time PHQ-9 Depression Total Score: 8 07/14/19 25 9:35 AM EST documented as of this encounter Care Teams Patient Representative Relationship Specialty Start Date End Date Name, MD Live [address] [place] [address] PCP - General Family Medicine 01/19/17 documented as of this encounter
--- OUTSIDE RECORDS SUMMARY | 2024-07-20 08:34 | XMS_ITS | Encounter Summary ---
Author Organization [employer] Address [address] [facility] 7t [place] [address] Care Team Providers Care Leadership Recruiter Name Role Phone Name, Live WHITFIELD Primary Care Provider [phone] Reason for Visit * Reason Onset Date Comments Lorene TORIBIO 10/15/2023 Encounter Details Date Type Department Care Team ([facility] st Contact Info) Description 10/15/[address] [facility] MEDICINE [address] [place] [address] Name, MD Live [address] [place] [address] Lorene TORIBIO Social History Tobacco Use Types [...] - 10/15/2023 4:35 PM EDT [facility] calling to inform medication Wegovy has been denied by insurance. documented in this encounter Plan of Treatment Upcoming Encounters Date Type Department Care Team (Late st Contact Info) Description 07/29/2024 8:00 AM EST Office Visit [facility] ADULT DENTAL [address] [place] [address] Jose Cruz Wickpreet [address] [place] [address] documented as of this encounter Visit Diagnoses Not on filedocumented in this encounter Additional Health Concerns Assessment Noted Time PHQ-9 Depression Total Score: 0 06/10/19 24 9:52 AM EST documented as of this encounter Care Teams Leadership Recruiter Relationship Specialty Start Date End Date Name, MD Live [address] [place] [address] PCP - General Family Medicine 01/19/17 documented as of this encounter
--- OUTSIDE RECORDS SUMMARY | 2024-07-20 08:34 | XMS_ITS | Encounter Summary ---
Author Organization [facility] [facility] Address [address] [place] [address] 7 [place] [address] Care Team Providers Care Hand Striper Name Role Phone Name, Live WHITFIELD Primary Care Provider [phone] Encounter Details Date Type Department Care Team (Latest Contact Info) Description 07/19/2019 Abstract [facility] CONVERSIONS Dental, Provider, DDS Social [...] Office Visit [facility] AD[facility] [address] [place] [address] WickTanja mendesanpreet [address] [place] [address] documented as of this encounter Visit Diagnoses Not on filedocumented in this encounter Care Teams Hand Striper Relationship Specialty Start Date End Date Name, MD Live [address] [place] [address] PCP - General Family Medicine 01/19/17 documented as of this encounter
--- OUTSIDE RECORDS SUMMARY | 2024-07-20 08:34 | XMS_ITS | Encounter Summary ---
Author Organization [facility] Address [address] [place] [address] 7 [place] [address] Care Team Providers Care Indoor Sports Centre Manager Name Role Phone Name, Live WHITFIELD Primary Care Provider [phone] Encounter Details Date Type Department Care Team (Latest Contact Info) Description 08/24/2020 Abstract [facility] CONVERSIONS Dental, Provider, DDS Social History [...] Visit [facility] ADULT DENTAL [address] [place] [address] WickTanja mendesanpreet [address] [place] [address] documented as of this encounter Visit Diagnoses Not on filedocumented in this encounter Care Teams Indoor Sports Centre Manager Relationship Specialty Start Date End Date Name, MD Live [address] [place] [address] PCP - General Family Medicine 01/19/17 documented as of this encounter
--- OUTSIDE RECORDS SUMMARY | 2024-07-20 08:34 | XMS_ITS | Encounter Summary ---
Author Organization [employer] Address [address] [facility] 7t [place] [address] Care Team Providers Care Glue Plant Operator Name Role Phone Name, Live WHITFIELD Primary Care Provider [phone] Reason for Visit * Reason Onset Date Comments Med Refill 10/06/2023 Encounter Details Date Type Department Care Team ([facility] st Contact Info) Description 10/06/2023 Refill [facility] MEDICINE [address] [place], [place] [phone] Name, MD Live [address] [place] [address] Social History Tobacco Use Types Packs/Day Years [...] Description 07/29/2024 8:00 AM EST Office Visit [facility] ADULT [facility]AL [address] [place] [address] Fernanda Wick [address] [place] [address] documented as of this encounter Visit Diagnoses Not on filedocumented in this encounter Additional Health Concerns Assessment Noted Time PHQ-9 Depression Total Score: 0 06/10/19 24 9:52 AM EST documented as of this encounter Care Teams Glue Plant Operator Relationship Specialty Start Date End Date Name, MD Live [address] [place] [address] PCP - General Family Medicine 01/19/17 documented as of this encounter
--- OUTSIDE RECORDS SUMMARY | 2024-07-20 08:34 | XMS_ITS | Encounter Summary ---
Author Organization [employer] [facility] Address [address] [place] [address] 7 [place] [address] Care Team Providers Care Chocolate Production Machine Operator Name Role Phone Name, Live WHITFIELD Primary Care Provider [phone] Encounter Details Date Type Department Care Team (Latest Contact Info) Description 07/14/2018 Abstract [facility] CONVERSIONS Dental, Provider, DDS Social [...] 07/29/2024 8:00 AM EST Office Visit [facility] ADULT DENTAL [address] [place] [address] WickTanja mendesanpreet [address] [place] [address] documented as of this encounter Visit Diagnoses Not on filedocumented in this encounter Care Teams Chocolate Production Machine Operator Relationship Specialty Start Date End Date Name, MD Live [address] [place] [address] PCP - General Family Medicine 01/19/17 documented as of this encounter
--- OUTSIDE RECORDS SUMMARY | 2024-07-20 08:34 | XMS_ITS | Encounter Summary ---
Author Organization [employer] Address [address] [facility] 7t [place] [address] Care Team Providers Care Core Stripper Name Role Phone Name, Live WHITFIELD Primary Care Provider [phone] Reason for Visit * Reason Onset Date Comments Med Refill 08/18/2023 Encounter Details Date Type Department Care Team ([facility] st Contact Info) Description 08/18/2023 Refill [facility] MEDICINE [address] [place] [phone] Name, MD Live [address] [place] [address] Social History Tobacco Use Types Packs/Day Years [...] [facility] [address] [place] [address] Fernanda Wick [address] [place] [address] documented as of this encounter Visit Diagnoses Not on filedocumented in this encounter Additional Health Concerns Assessment Noted Time PHQ-9 Depression Total Score: 0 06/10/19 24 9:52 AM EST documented as of this encounter Care Teams Core Stripper Relationship Specialty Start Date End Date Name, MD Live [address] [place] [address] PCP - General Family Medicine 01/19/17 documented as of this encounter
--- OUTSIDE RECORDS SUMMARY | 2024-07-20 08:34 | XMS_ITS | Encounter Summary ---
Author Organization [employer] Address [address] [facility] 7t [place] [address] Care Team Providers Care Household Appliance Installer Name Role Phone Name, Live WHITFIELD Primary Care Provider [phone] Reason for Visit * Reason Onset Date Comments Med Refill 10/13/2023 Encounter Details Date Type Department Care Team ([facility] st Contact Info) Description 10/13/2023 Refill [facility] MEDICINE [address] [place] [address] Name, MD Live [address] [place] [address] Social History Tobacco Use Types Packs/Day Years [...] 07/29/2024 8:00 AM EST Office Visit [facility]ULT [facility] [address] [place] [address] Fernanda Wick [address] [place] [address] documented as of this encounter Visit Diagnoses Not on filedocumented in this encounter Additional Health Concerns Assessment Noted Time PHQ-9 Depression Total Score: 0 06/10/19 24 9:52 AM EST documented as of this encounter Care Teams Household Appliance Installer Relationship Specialty Start Date End Date Name, MD Live [address] [place] [address] PCP - General Family Medicine 01/19/17 documented as of this encounter
--- OUTSIDE RECORDS SUMMARY | 2024-07-20 08:34 | XMS_ITS | Encounter Summary ---
Author Organization [employer] Address [address] [facility] 7t [place] [address] Care Team Providers Care Grinder And Plater Name Role Phone Name, Live WHITFIELD Primary Care Provider [phone] Reason for Visit * Reason Onset Date Comments Med Refill 08/18/2023 Encounter Details Date Type Department Care Team ([facility] st Contact Info) Description 08/18/2023 Refill [facility] MEDICINE [address] [place] [phone] Name, MD Live [address] [place] [address] Social History Tobacco Use Types Packs/Day Years [...] [facility] [place] [facility] [address] [place] [address] Fernanda Wick [address] [place] [address] documented as of this encounter Visit Diagnoses Not on filedocumented in this encounter Additional Health Concerns Assessment Noted Time PHQ-9 Depression Total Score: 0 06/10/19 24 9:52 AM EST documented as of this encounter Care Teams Grinder And Plater Relationship Specialty Start Date End Date Name, MD Live [address] [place] [address] PCP - General Family Medicine 01/19/17 documented as of this encounter
--- OUTSIDE RECORDS SUMMARY | 2024-07-20 08:34 | XMS_ITS | Encounter Summary ---
Author Organization [employer] Address [address] [facility] [address] [place] [address] Care Team Providers Care Warper Tender Name Role Phone Name, Live WHITFIELD Primary Care Provider [phone] Encounter Details Date Type Department Care Team [...] 07/29/2024 8:00 AM EST Office Visit [facility] ADULT DENTAL [address] [place] [address] Jose Cruz Wickpreet [address] [place] [address] documented as of this encounter Procedures Procedure Name Priority Date/Time Associated Diagnosis Comments HPV DNA, LOW/HIGH RISK Routine 07/08/2024 11:31 AM EST PAP SMEAR Routine 07/08/2024 11:31 AM EST documented in this encounter Results * Pap Smear (07/08/2024 11:31 AM EST) 07/08/2024 11:3 1 AM EST 07/11/2024 8:20 AM EST Narrative [facility] - 07/19/2024 10:20 AM EST ----- ------- Name: Ash,Janaklupe ? Age/Sex: 39/F ? : 1985 Unit#: [id number] ?? Attend Dr: Quinton Eduardo MD ?Re07/08/24 ?Status: DEP REF ? Location: HO.LNP ?Disch: ? ----- ------- SPEC : [id number] ? RECD: 07/11/24 ? STATUS: ??SOUT ? REQ NUM: [id number] ? BRUCE: 07/08/24 ? SUBM DR: Quinton [...] Copies To: ?? Name,Live WHITFIELD ?? [address] [facility] ?? [place] [address] ?? [phone] ?? Quinton Eduardo MD ?? [facility] ?? [address] [facility] [address] ?? [place] [address] ?? [phone] ----- ------- Signed (signature on file) Jessica Lopes 07/19/240 ? ----- ------- ? END OF REPORT ? Generic External Data Provider LAB CYTOLOGY ORDE RABLES Final Result Performing Organization Address [facility] Co de Phone Number [facility] [address] [place] [address] [phone] * (ABNORMAL) HPV DNA, Low/High Risk (07/08/2024 11:31 AM EST) HPV High Risk Positive(A) Negative [facility] HPV Genotype 16 Negative Negative [facility] HPV Genotype 18 Negative Negative [facility] Comment:HPV testing performe d at [facility] (CLIA#[id number]), [address] [place] [address].Testing for HPV was performed using the [employer]system. The presence of HPV in the female [...] AM EST 07/11/2024 8:20 AM EST Narrative [facility] - 07/18/2024 9:10 AM EST Generic External Data Provider LAB BLOOD ORDERAB LES Final Result Performing Organization Address [facility]/ZIP Co de Phone Number [facility] [address] [place] [address] [phone] documented in this encounter Visit Diagnoses Not on filedocumented in this encounter Additional Health Concerns Assessment Noted Time PHQ-9 Depression Total Score: 0 06/10/19 24 9:52 AM EST documented as of this encounter Care Teams Warper Tender Relationship Specialty Start Date End Date Name, MD Live [address] [place] [address] PCP - General Family Medicine 01/19/17 documented as of this encounter
== END 2024-07-20 07:56 | disposition home or self-care (01) ==
LOC: HO.LNP 07:55
PROVIDERS: PCP Internal Medicine Geriatric Medicine; Visit Provider Obstetrics & Gynecology
DX: R87.610 Atypical squamous cells of undetermined significance on cytologic smear of cervix (ASC-US) (principal); R87.810 Cervical high risk human papillomavirus (HPV) DNA test positive; Z32.02 Encounter for pregnancy test, result negative; Z98.51 Tubal ligation status
CPT/HCPCS: 57454; 81025; 88305

== ENCOUNTER 2024-07-20 07:55 | Outpatient (AMB) | payer OTHER, MEDICAID, SELFPAY ==
--- OUTSIDE RECORDS SUMMARY | 2024-07-20 08:02 | XMS_ITS | Encounter Summary ---
Author Organization [employer] [facility] Address [address] [place] [address] 7 [place] [address] Care Team Providers Care Lithograph Designer Name Role Phone Name, Live WHITFIELD Primary Care Provider [phone] Encounter Details Date Type Department Care Team (Late st Contact Info) Description 12/15/2022 Abstract [facility] MEDICINE [address] [place] [address] Name, MD Live [address] [place] [address] Social History Tobacco Use Types Packs/Day Years [...] Description 07/29/2024 8:00 AM EST Office Visit [facility] ADULT DENTAL [address] [place], [place] [phone] Fernanda Wick [address] [place] [address] documented as of this encounter Procedures Procedure Name Priority Date/Time Associated Diagnosis Comments COLPOSCOPY Routine 05/13/2022 12:00 AM EST documented in this encounter Results * Colposcopy (05/13/2022 12:00 AM EST) us Historical Provider IN CLINIC/BEDSIDE ORDERAB LES Final Result documented in this encounter Visit Diagnoses Not on filedocumented in this encounter Care Teams Lithograph Designer Relationship Specialty Start Date End Date Name, MD Live [address] [place] [address] PCP - General Family Medicine 01/19/17 documented as of this encounter
--- OUTSIDE RECORDS SUMMARY | 2024-07-20 08:02 | XMS_ITS | Encounter Summary ---
Author Organization [employer] Address [address] [facility] [address] 7t [place] [address] Care Team Providers Care Thimble Press Operator Name Role Phone Name, Live WHITFIELD Primary Care Provider [phone] Encounter Details Date Type Department Care Team [...] 8:00 AM EST Office Visit [facility] ADULT DENTAL [address] [place] [address] Jose Cruz Wicksincerejacob [address] [place] [address] documented as of this encounter Visit Diagnoses Not on filedocumented in this encounter Additional Health Concerns Assessment Noted Time PHQ-9 Depression Total Score: 0 06/10/19 24 9:52 AM EST documented as of this encounter Care Teams Thimble Press Operator Relationship Specialty Start Date End Date Name, MD Live [address] [place] [address] PCP - General Family Medicine 01/19/17 documented as of this encounter
--- OUTSIDE RECORDS SUMMARY | 2024-07-20 08:02 | XMS_ITS | Encounter Summary ---
Author Organization [employer] Address [address] [facility] [address] 7t [place] [address] Care Team Providers Care Wharfinger Chief Name Role Phone Name, Live WHITFIELD Primary Care Provider [phone] Encounter Details Date Type Department Care Team ([facility] st Contact Info) Description 06/24/2023 Abstract [facility] MEDICINE [address] [place] [address] Name, MD Live [address] [place] [address] Social History Tobacco Use Types Packs/Day Years [...] 8:00 AM EST Office Visit [facility] ADULT DENTAL [address] [place] [address] Tanja Wickanpreet 505 [place] [address] documented as of this encounter Procedures Procedure Name Priority Date/Time Associated Diagnosis Comments PAP/HPV Routine 06/10/2023 documented in this encounter Results * Pap Smear (06/10/2023) Pap Negative for intraephithelial lesion or malignancy Negative for intraephithelial lesion or malignancy, Other Comment:NILM HPV not detecte d HPV Not Detected Undetected, Indeterminate, Quantitative, Not Detected Live Name HEALTH MAINTENANCE Final Result documented in this encounter Visit Diagnoses Not on filedocumented in this encounter Additional Health Concerns Assessment Noted Time PHQ-9 Depression Total Score: 0 06/10/19 24 9:52 AM EST documented as of this encounter Care Teams Wharfinger Chief Relationship Specialty Start Date End Date Name, MD Live [address] [place] [address] PCP - General Family Medicine 01/19/17 documented as of this encounter
--- OUTSIDE RECORDS SUMMARY | 2024-07-20 08:02 | XMS_ITS | Encounter Summary ---
Author Organization [employer] Address [address] [facility] 7 [place] [address] Care Team Providers Care Equipment Lead Name Role Phone NameLive MD Primary Care Provider [phone] Reason for Visit * Reason Comments Med Change Request Encounter Details Date Type Department Care Team ([facility] st Contact Info) Description 10/01/2022 Refill [facility] MEDICINE [address] [place] [phone] Name, MD Live [address] [place] [address] Social History Tobacco Use Types Packs/Day Years [...] [facility] ADULT DENTAL [address] [place] [address] Jose Cruz Wickpreet [address] [place] [address] documented as of this encounter Visit Diagnoses Not on filedocumented in this encounter Care Teams Equipment Lead Relationship Specialty Start Date End Date Name, MD Live [address] [place] [address] PCP - General Family Medicine 01/19/17 documented as of this encounter
--- OUTSIDE RECORDS SUMMARY | 2024-07-20 08:02 | XMS_ITS | Encounter Summary ---
Author Organization [employer] Address [address] [facility] 7t [place] [address] Care Team Providers Care Irrigationist Designer Name Role Phone Name, Live WHITFIELD Primary Care Provider [phone] Reason for Visit * Reason Comments Pre-visit Planning Pre visit planning L Encounter Details Date Type Department Care Team ([facility] st Contact Info) Description 07/05/2024 Patient Outreach [facility] MEDICINE [address] [place] [phone] Name, MD Live [address] [place] [address] Pre-visit Planning (Pre visit planning LVM ) [...] the past 12 months, has t he [employer] gas, oil or water [employer] threatened to shut off services in your [...] AM EST Office Visit [facility] ADULT DENTAL [address] [place] [address] Tanja Wickshayyet [address] [place] [address] documented as of this encounter Visit Diagnoses Not on filedocumented in this encounter Additional Health Concerns Assessment Noted Time PHQ-9 Depression Total Score: 0 06/10/19 24 9:52 AM EST documented as of this encounter Care Teams Irrigationist Designer Relationship Specialty Start Date End Date Name, MD Live [address] [place] [address] PCP - General Family Medicine 01/19/17 documented as of this encounter
--- OUTSIDE RECORDS SUMMARY | 2024-07-20 08:02 | XMS_ITS | Encounter Summary ---
Author Organization [employer] Address [address] [facility] [address] [place] [address] Care Team Providers Care Paper Folding Machine Operator Name Role Phone Name, Live WHITFIELD Primary Care Provider [phone] Reason for Visit * Reason Comments Annual Exam Encounter Details Date Type Department Care Team ([facility] Contact Info) Description 07/14/2024 9:15 AM EST Office Visit [facility] MED[facility] [address] [place] [phone] Name, MD Live [address] [place] [phone] PE (physical exam), routine (Primary Dx); Other [...] 07/29/2024 8:00 AM EST Office Visit [facility] [address] [facility] [place] [address] Fernanda Wick [address] [place] [address] documented as of this encounter Procedures Procedure Name Priority Date/Time Associated Diagnosis Comments CBC WITH AUTO DIFFERENTIAL Routine 07/16/2024 8:53 AM EST PE (physical exam), routine Other iron deficiency anemia IRON AND TOTAL IRON BINDING CAPACITY Routine 07/16/2024 8:53 AM EST PE (physical exam), routine Other iron deficiency anemia LIPID PANEL, STANDARD Routine 07/16/2024 8:53 AM EST PE (physical exam), routine Other iron deficiency anemia COMPREHENSIVE METABOLIC PANEL Routine 07/16/2024 8:53 AM EST PE (physical exam), routine Other iron deficiency anemia documented in this encounter Results * Lipid Panel, Standard (07/16/2024 8:53 AM EST) Triglycerides 64 <150 mg/dL [facility] Comment:Desirable Triglyceri de: less than 150 mg/dLBorderline High Triglyceride 150-199 mg/dLHigh Triglyceride: 200-499 mg/dLVery High Triglyceride: greater than or equal to 5OO mg/dL Cholesterol 142 <200 mg/dL [facility] Comment:Desirable Cholestero l: less than 200 mg/dLBorderline High Cholesterol: 200-239 mg/dLHigh Cholesterol: greater than 239 mg/dL LDL Cholesterol Calculated 77 <100 mg/dL [facility] Comment:Desirable LDL: less than 100 mg/dLNear Optimal/Above Optimal LDL: 110- 129 mg/dLBorderline High LDL: 130-159 mg/dLHigh LDL: 160-189 mg/dLVery High LDL: greater than or equal to 190 mg/dL HDL Cholesterol 53 >40 mg/dL [facility] Comment:Desirable HDL: great er than 40 mg/dL Note: This HDL assay may give artificially low results in patients with liver disease. Blood Venous blood specimen / Unknown 07/16/2024 8:53 AM EST 07/16/2024 8:53 AM EST us Live Mcknight MD LAB BLOOD ORDERABLES Final Resul t [facility] [address] [place] [phone] * (ABNORMAL) Comprehensive Metabolic Panel (07/16/2024 8:53 AM EST) Sodium 142 135 - 145 mmol/L [facility] Potassium 4.0 3.3 - 5.1 mmol/L [facility] Chloride 110(H) 96 - 108 mmol/L [facility] Carbon Dioxide 26 22 - 29 mmol/L [facility] Anion Gap 10(L) 12 - 20 [facility] Urea Nitrogen (BUN) 8(L) 9 - 16 mg/dL [facility] Creatinine, Serum 0.70 0.5 - 1.4 mg/dL [facility] Estimated Glomerular Filt Rate >60 [facility] Comment:Chronic Kidney Disea se: Estimated GFR < 60 mL/min/1.88m2Gmhhoi Kidney Disease: Estimated GFR < 15 mL/min/1.73m2 Glucose 85 60 - 115 mg/dL [facility] Calcium 9.2 8.4 - 10.2 mg/dL [facility] Bilirubin, Total 0.7 0.0 - 1.0 mg/dL [facility] Aspartate Amino Transferase 21 5 - 31 U/L [facility] Alanine Aminotransferase 15 0 - 31 U/L [facility] Total Protein 7.4 6.5 - 8.0 g/dL [facility] Albumin Level 4.0 3.5 - 5.0 g/dL [facility] Alkaline Phosphatase 76 39 - 117 U/L [facility] Blood Venous blood specimen / Unknown 07/16/2024 8:53 AM EST 07/16/2024 8:53 AM EST us Live Mcknight MD LAB BLOOD ORDERABLES Final Resul t Performing Organization Address [facility] de Phone Number [facility] [address] [place] [phone] * (ABNORMAL) Iron And Total Iron Binding Capacity (07/16/2024 8:53 AM EST) [facility] Iron 32 30 - 160 mcg/dL [facility] Total Iron Binding Capacity 338 228 - 428 mcg/dL [facility] Percent Iron Saturation 9(L) 15 - 50 % [facility] Unsaturated Iron Binding 306 ug/dL [facility] Blood Venous blood specimen / Unknown 07/16/2024 8:53 AM EST 07/16/2024 8:53 AM EST us Live Mcknight MD LAB BLOOD ORDERABLES Final Resul t Performing Organization Address [facility] de Phone Number [facility] [address] [place] [phone] * (ABNORMAL) CBC auto differential (07/16/2024 8:53 AM EST) [facility] White Blood Count 7.7 4.8 - 10.8 X10*3/uL [facility] Red Blood Count 5.23 4.20 - 5.50 X10*6/uL [facility] Hemoglobin 11.6(L) 12.0 - 16.0 g/dl [facility] Hematocrit 36.5(L) 37.0 - 47.0 % [facility] Mean Corpuscular Volume 69.8(L) 80.0 - 98.0 fL [facility] Mean Corpuscular Hemoglobin 22.2(L) 27.0 - 33.0 pg [facility] Mean Corpuscular HGB Conc 31.8 31.0 - 35.0 g/dl [facility] Red Cell Distribution Width 20.1(H) 11.0 - 16.0 % [facility] Platelet Count 277 160 - 400 X10*3/uL [facility] Mean Platelet Volume 10.5 9.4 - 12.3 fL [facility] Neutrophils Percent Auto 56.9 45 - 73 % [facility] Imm Gran Pct Auto 0.3 0.0 - 0.4 % [facility] Lymphocytes Percent Auto 31.2 20 - 40 % [facility] Monocytes Percent Auto 8.3 2 - 11 % [facility] Eosinophils Percent Auto 2.8 0 - 4 % [facility] Basophils Percent Auto 0.5 0 - 2 % [facility] NRBC Pct Auto 0.0 0.0 - 0.2 /100WBC [facility] Neutrophils Absolute Auto 4.4 2.0 - 8.3 x10*3/uL [facility] Imm Gran Abs Auto 0.02 0.00 - 0.03 X10*3/uL [facility] Lymphocytes Absolute Auto 2.4 1.2 - 4.9 X10*3/uL [facility] Monocytes Absolute Auto 0.6 0.1 - 1.2 X10*3/uL [facility] Eosinophils Absolute Auto 0.2 0.0 - 0.4 X10*3/uL [facility] Basophils Absolute Auto 0.0 0.0 - 0.2 X10*3/uL [facility] NRBC Abs Auto 0.000 0.0 - 0.012 X10*3/uL [facility] Blood Venous blood specimen / Unknown 07/16/2024 8:53 AM EST 07/16/2024 8:53 AM EST us Live Mcknight MD LAB BLOOD ORDERABLES Final Resul t [facility] [address] [place] [phone] documented in this encounter Visit Diagnoses Diagnosis PE (physical exam), routine- Primary Other iron deficiency anemia documented in this encounter Additional Health Concerns Assessment Noted Time PHQ-9 Depression Total Score: 8 07/14/19 25 9:35 AM EST documented as of this encounter Care Teams Paper Folding Machine Operator Relationship Specialty Start Date End Date Name, MD Live [address] [place] [address] PCP - General Family Medicine 01/19/17 documented as of this encounter
--- OUTSIDE RECORDS SUMMARY | 2024-07-20 08:02 | XMS_ITS | Data Portability ---
Author Organization [facility], , [facility] Address [address] [place] [address] Assessment Encounter Date Assessment Date Assessment LastModified [...] of the flexors.? ? ? 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 Lab urinalysis, dipstick [address], [address] [place] [address], [address], 6 12:37:03 culture, urine 2015 016 [facility], [address] [place] [address], [address], 6 13:05:17 CBC 2015 016 [facility], [address] [place] [address], [address], 6 10:50:51 glucose, QN [mass/volum e], serum or plasma 2015 016 [facility], [address] [place], [address], 6 15:40:46 HbA1c (hemoglobin A1c), blood 2015 016 [facility], [address] [place], [address], 6 12:52:26 TSH, serum or plasma 2015 016 [facility], [address] [place] [address], [address], 6 16:44:27 Referral physical therapist referral - Low back pain - sprain. Please eval and treat. 2015 016 [facility], [address] [place] [address], [phone], 6 05:02:15 Procedures None recorded. Surgeries None recorded. Imaging None recorded. Medication Orders Pyridium 200 mg tablet 2015 016 cnormandi n2 [facility] [address] ([facility]), [address] [place], [place], [id number], 7 07:16:12 loratadine 10 mg tablet 2013 014 jdulude SnipSnapmauirsios [address] ([facility]), [address] [place], [place], [id number], 6 09:14:15 Flonase 50 mcg/actuati on nasal spray,suspe nsion 2013 014 jdulude Mikeeens [address] ([facility]), [address] [place], [place], [id number], 6 09:14:15 Patient TargetsNo targets recorded. Patient Instructions Encounter Date Encounter Id Patient Instructions Last Modified By Organization Details Last Modified Time 06/06/2015 [id number] Well Visit, Ages 18 to 65: Care Instructions [email or web address] Not available 06/06/2015 10:38:26 After a discussi on of treatment options, which included consideration of best practices and patient preferences, the above treatment plan and objectives were adopted. fkim Not available 06/06/2015 09:51:53 06/21/2015 [id number] Continue with ibuprofen as needed, heat/ice, range [...] dipst ick Leukocytes Negati ve Not Available [address], [address], 08/23/2015 12:15:16 08/23/1908/23/2015 urina lysis , dipst ick Nitrite negati ve Not Available [address], [address], 08/23/2015 12:15:16 08/23/19 16 08/23/2015 urina lysis , dipst ick Urobilinogen .2 Not Available [address], [address], 08/23/2015 12:15:16 08/23/1908/23/2015 urina lysis , dipst ick Protein Negati ve Not Available [address], [address], 08/23/2015 12:15:16 08/23/1908/23/2015 urina lysis , dipst ick pH 5.5 Not Available [address], [address], 08/23/2015 12:15:16 08/23/19 16 08/23/2015 urina lysis , dipst ick Blood Negati ve Not Available [address], [address], 08/23/2015 12:15:16 08/23/19 16 08/23/2015 urina lysis , dipst ick Specific [place] 1.015 Not Available [address], [address], 08/23/2015 12:15:16 08/23/19 16 08/23/2015 urina lysis , dipst ick Ketone Negati ve Not Available [address], [address], 08/23/2015 12:15:16 08/23/19 16 08/23/2015 urina lysis , dipst ick Bilirubin Negati ve Not Available [address], [address], 08/23/2015 12:15:16 08/23/19 16 08/23/2015 urina lysis , dipst ick Glucose Negati ve Not Available [address], [address], 08/23/2015 12:15:16 08/23/19 16 08/23/2015 urina lysis , dipst ick Appearance Clear Not Available [address], [address], 08/23/2015 12:15:16 08/23/19 16 08/23/2015 urina lysis , dipst ick Color Yellow Not Available [address], [address], 08/23/2015 12:15:16 10/12/19 14 10/11/2013 CBC WBC 9.1 K/? ? ?L 4.0-10 .0 Not Available [address], [address], 10/11/2013 14:52:43 10/12/19 14 10/11/2013 CBC RBC 4.89 M/? ? ?L 3.93-5 .22 Not Available [address], [address], 10/11/2013 14:52:43 10/12/19 14 10/11/2013 CBC HGB 13.9 g/dL 11.2-1 5.7 Not Available [address], [address], 10/11/2013 14:52:43 10/12/19 14 10/11/2013 CBC HCT 40.7 % 34.1-4 4.9 Not Available [address], [address], 10/11/2013 14:52:43 10/12/19 14 10/11/2013 CBC MCV 83.2 ? ? ?L 79.4-9 4.8 Not Available [address], [address], 10/11/2013 14:52:43 10/12/19 14 10/11/2013 CBC MCH 28.4 pg 25.6-3 2.2 Not Available [address], [address], 10/11/2013 14:52:43 10/12/19 14 10/11/2013 CBC MCHC 34.2 g/dL 32.2-3 5.5 Not Available [address], [address], 10/11/2013 14:52:43 10/12/19 14 10/11/2013 CBC plt 262.0 K/? ? ?L 182.0- 369.0 Not Available [address], [address], 10/11/2013 14:52:43 10/12/19 14 10/11/2013 CBC MPV 11.0 9.4-12 .3 Not Available [address], [address], 10/11/2013 14:52:43 10/12/19 14 10/11/2013 CBC neut% 61.8 % 34.0-7 1.1 Not Available [address], [address], 10/11/2013 14:52:43 10/12/19 14 10/11/2013 CBC neut# 5.6 1.6-6. 1 Not Available [address], [address], 10/11/2013 14:52:43 10/12/19 14 10/11/2013 CBC lymph % 29.0 % 19.3-5 1.7 Not Available [address], [address], 10/11/2013 14:52:43 10/12/19 14 10/11/2013 CBC lymph # 2.6 K/? ? ?L 1.2-3. 7 Not Available [address], [address], 10/11/2013 14:52:43 10/12/19 14 10/11/2013 CBC mono% 6.8 % 4.7-12 .5 Not Available [address], [address], 10/11/2013 14:52:43 10/12/19 14 10/11/2013 CBC mono# 0.6 0.2-0. 4 high Not Available [address], [address], 10/11/2013 14:52:43 10/12/19 14 10/11/2013 CBC eo% 2.2 % 0.7-5. 8 Not Available [address], [address], 10/11/2013 14:52:43 10/12/19 14 10/11/2013 CBC eo# 0.2 0.0-0. 4 Not Available [address], [address], 10/11/2013 14:52:43 10/12/19 14 10/11/2013 CBC baso% 0.2 % 0.1-1. 2 Not Available [address], [address], 10/11/2013 14:52:43 10/12/19 14 10/11/2013 CBC baso# 0.0 0.0-0. 1 low Not Available [address], [address], 10/11/2013 14:52:43 10/12/19 14 10/11/2013 CBC RDW-CV 14.7 % 11.7-1 4.4 high Not Available [address], [address], 10/11/2013 14:52:43 10/12/19 14 10/11/2013 ESR sed rate 20.0 0.0-15 .0 high Not Available [address], [address], 10/11/2013 16:06:36 10/12/19 14 10/11/2013 thyro id stimu latin g hormo ne (TSH) TSH 1.65 uIU/m L 0.50-6 .00 the ameri can colle ge of endoc rinol ogy and ameri can thyro id assoc iatio n recom mend goal TSH value s betwe en 1.0-2 .5 mIU/m L. Not Available [address], [address], 10/11/2013 16:53:42 10/12/19 14 10/13/2013 rheum atoid facto r rheumatoid factor 3.5 IU/mL 0.0-16 .0 <16.0 IU/mL - negat jennifer 16.0- 19.9 IU/mL - equiv ocal >20.0 IU/mL - posit jennifer Not Available [address], [address], 10/13/2013 14:06:56 10/12/19 14 10/13/2013 YAZMIN YAZMIN screen 0.41 0.00-0 .39 positive YAZMIN=s ample [facility] to [facility] rn and titer . <0.4 -nega tive 0.40 - 1.10 -equi vocal >1.10 -posi tive Not Available [address], [address], 10/13/2013 14:06:57 10/12/19 14 10/14/2013 post scree n titer and lorenete rn YAZMIN pattern NEGATI VE normal Not Available [facility] [address], [address], 10/14/2013 21:44:52 10/12/19 14 10/14/2013 post scree n titer and [place] rn antinuclear antibodies <1:40 titer normal refer ence range <1:40 negat jennifer 1:40- 1:80 low antib alma level >1:80 eleva noe antib alma level Not Available [facility] [address], [address], 10/14/2013 21:44:52 06/07/19 16 06/07/2015 CBC WBC 10.6 K/? ? ?L 4.0-10 .0 high Not Available [address], [address], 06/07/2015 10:50:51 06/07/19 16 06/07/2015 CBC RBC 5.20 M/? ? ?L 3.93-5 .22 Not Available [address], [address], 06/07/2015 10:50:51 06/07/19 16 06/07/2015 CBC HGB 13.6 g/dL 11.2-1 5.7 Not Available [address], [address], 06/07/2015 10:50:51 06/07/19 16 06/07/2015 CBC HCT 40.0 % 34.1-4 4.9 Not Available [address], [address], 06/07/2015 10:50:51 06/07/19 16 06/07/2015 CBC MCV 76.9 ? ? ?L 79.4-9 4.8 low Not Available [address], [address], 06/07/2015 10:50:51 06/07/19 16 06/07/2015 CBC MCH 26.2 pg 25.6-3 2.2 Not Available [address], [address], 06/07/2015 10:50:51 06/07/19 16 06/07/2015 CBC MCHC 34.0 g/dL 32.2-3 5.5 Not Available [address], [address], 06/07/2015 10:50:51 06/07/19 16 06/07/2015 CBC plt 239.0 K/? ? ?L 182.0- 369.0 Not Available [address], [address], 06/07/2015 10:50:51 06/07/19 16 06/07/2015 CBC MPV 11.3 9.4-12 .3 Not Available [address], [address], 06/07/2015 10:50:51 06/07/19 16 06/07/2015 CBC neut% 63.8 % 34.0-7 1.1 Not Available [address], [address], 06/07/2015 10:50:51 06/07/19 16 06/07/2015 CBC neut# 6.8 1.6-6. 1 high Not Available [address], [address], 06/07/2015 10:50:51 06/07/19 16 06/07/2015 CBC lymph % 25.8 % 19.3-5 1.7 Not Available [address], [address], 06/07/2015 10:50:51 06/07/19 16 06/07/2015 CBC lymph # 2.7 K/? ? ?L 1.2-3. 7 Not Available [address], [address], 06/07/2015 10:50:51 06/07/19 16 06/07/2015 CBC mono% 7.8 % 4.7-12 .5 Not Available [address], [address], 06/07/2015 10:50:51 06/07/19 16 06/07/2015 CBC mono# 0.8 0.2-0. 4 high Not Available [address], [address], 06/07/2015 10:50:51 06/07/19 16 06/07/2015 CBC eo% 2.4 % 0.7-5. 8 Not Available [address], [address], 06/07/2015 10:50:51 06/07/19 16 06/07/2015 CBC eo# 0.3 0.0-0. 4 Not Available [address], [address], 06/07/2015 10:50:51 06/07/19 16 06/07/2015 CBC baso% 0.2 % 0.1-1. 2 Not Available [address], [address], 06/07/2015 10:50:51 06/07/19 16 06/07/2015 CBC baso# 0.0 0.0-0. 1 low Not Available [address], [address], 06/07/2015 10:50:51 06/07/19 16 06/07/2015 CBC RDW-CV 15.3 % 11.7-1 4.4 high Not Available [address], [address], 06/07/2015 10:50:51 06/07/19 16 06/07/2015 HbA1c (hemo globi n A1c), blood hemoglobin A1C 5.7 % 4.8-6. 0 Goal: <7% in Patie nts with Diabe chula Not Available [address], [address], 06/07/2015 12:52:26 06/07/19 16 06/07/2015 HbA1c (hemo globi n A1c), blood estimated average glucose 116.9 mg/dL Not Available [address], [address], 06/07/2015 12:52:26 06/07/19 16 06/07/2015 gluco se, QN [mass /volu me], serum or plasm a glucose 85 mg/dL 70-100 Not Available [address], [address], 06/07/2015 15:40:46 06/07/19 16 06/07/2015 TSH, serum or plasm a TSH 1.40 uIU/m L 0.50-6 .00 The Ameri can Colle ge of Endoc rinol ogy and Ameri can Thyro id Assoc iatio n recom mend goal TSH value s betwe en 0.4-4 .0 mIU/m L. Not Available [address], [address], 06/07/2015 16:44:27 08/23/19 16 08/24/2015 cultu re, urine culture, urine, routine CULTU RE, URINE , ROUTI NE MICRO NUMBE R: [id number] TEST STATU S: FINAL SPECI MEN SOURC E: URINE SPECI MEN QUALI TY: ADEQU ATE RESUL T: Multi ple organ isms prese nt, each less than 10,00 0 CFU/m L. These organ isms, commo nly found on exter nal and inter nal genit mookie, are consi dered to be colon izers . No furth er testi ng perfo rmed. Not Available [facility] [address], [place], [address], 08/24/2015 13:05:17 Result Notes Documentation Provider Name and Address Organization Details Recorded Time Pap Test, Slide(s), Cervical : LSIL (ordered by Mayte Salazar CNM) Lucho To MD [address] [place] [address], [address], [facility] 09/26/2015 12:41:56 Problems Name Problem SNOMED Code Status Onset Date Resolution Date Notes Provider Name and Address Organization Details Recorded Time Allergic rhinitis 43606066 Active Lucho To MD [address] [place] [address], [phone], [facility] 4 23:17:19 Urinary tract infectious disease 28585989 Active Naa Muniz MA [facility] 6 12:37:03 Problem Notes None recorded. Procedures Surgical History Date Name Laterality Status Provider Name and Address Organization Details Recorded Time 06/01/19 01 Cholecystectomy completed Lucho To MD [address] [place] [address], [phone], [facility] 10/11/2013 10:28:05 Imaging Results None recorded. Procedure [...] 90 mm[Hg] 70 mm[Hg] Rosa Lucio MA [facility] 4 11:56:04 Date Recorded Body weight Body height Body mass index (BMI) Systolic blood pressure Diastolic blood pressure Provider Name and Address Organization Details Last Updated DateTime 06/06/2015 061764.9 54844 g 158.75 cm 43.3 kg/m2 104 mm[Hg] 64 mm[Hg] Ester Girard MA [facility] 6 09:17:50 Date Recorded Body height Heart rate Body mass index (BMI) Body weight Systolic blood pressure Diastolic blood pressure Provider Name and Address Organization Details Last Updated DateTime 6 158.75 cm 64 /min 42.9 kg/m2 201429. 707218 g 104 mm[Hg] 62 mm[Hg] Naa Muniz [facility] 6 15:21:59 Date Recorded Body mass index (BMI) Body height Heart rate Body weight Systolic blood pressure Diastolic blood pressure Provider Name and Address Organization Details Last Updated DateTime 6 42.4 kg/m2 158.75 cm 60 /min 220139. 760728 g 108 mm[Hg] 60 mm[Hg] Naa Muniz [facility] 6 12:05:34 Social History Question Answer Notes LastModified by Organizat ion Details LastModified Time Tobacco Smoking Status Never Smoker Rosa Lucio MA [facility] 10/11/2013 10:19:20 What Is Your Level Of [...] Stay At Home Works On Weekends @ [employer] Information not available 10/11/2013 How Many Days [...] stpick Information not available 04/16/2018 Marital Status [facility] Info rmation not available 10/11/2013 Mosquito Repellent Used Routinely Yes Information not available 06/06/2015 How Many Children Do You Have? 4 Information not available 10/11/2013 Are There Any Occupational Health Risks Where You Work? None Information not available 06/06/2015 Seat Belts Used Routinely Yes Information not available 10/11/2013 Are You Sexually Active? Yes Information not available 10/11/2013 Smoke Alarm In Home Yes [facility] Information not available 10/11/2013 What Types Of [...] 02:20:14 Tdap 06/01/2013 completed Lucho To MD [address] [place] [address], [phone], [facility] 10/11/2013 10:30:03 Past Encounters Encounter ID Performer Location Encounter Start Date Encounter Closed Date Diagnosis/Indication Diagnosis SNOMED-CT Code Diagnosis ICD10 Code Diagnosis Note [id number] , [facility], OFFICE [address] [place] [address] 10/11/2013 10:02:22 10/11/2013 11:01:02 Adult health examination [id number] See Risk Assessment and Lifestyle Change Counseling section. Will request records from [facility] and [facility]. States her last Pap was UTD and negative. Home/vehic le/sexual safety reviewed. HIV/Hep C negative per report. Tdap UTD (received during her recent ) . Hand cramps 372061376 Pa tient with 1-month duration of stiffening of her hand. No clinical evidence of CTS. No deformitie s or swelling on exam. Likely due to overuse given her clinical history. Will check CBC/RF/YAZMIN /ESR/TSH. Referral to Occupation al Therapy for further evaluation /treatment . [id number] Evelia Burris, OT Physical Therapy, [facility] [address] [place] [address] 10/13/2013 15:04:16 10/14/2013 08:00:06 Hand cramps 434709070 [id number] Lucho To MD , [facility], [address] [place] [address] 02/22/2014 11:46:56 02/22/2014 12:17:02 Allergic rhinitis 91327077 Patient symptoms are more likely due to [...] symptoms. Indication s for UC/ER use discussed. [id number] MD BARRY Chan, [facility], [address]ICE [address] [place] [address] 06/06/2015 08:48:26 06/06/2015 09:54:12 Adult health examination 065046286 Z00.00 See Risk Assessment and Lifestyle Change Counseling section above. Last Pap smear was [address] [facility] (was told normal). Influenza vaccine administer ed today. Tdap vaccine UTD. Recommende d fiber supplement ation for constipati on. Counseling 448059513 Z71 .9 Active or passive immunization 225814981 Z23 Fatigue 21921765 R53.83 Patient with ongoing fatigue. No sleep apnea symptoms. Check CBC, glucose, Hgb A1c and TSH. [id number] MINH Sims, [facility], [address] [place] [address] 06/21/2015 14:47:33 06/21/2015 15:53:27 Low back pain 302622258 M54.5 muscularsk eletal. NO apparent disk herniation . [id number] Sindi Lopez NP , [facility], [address] [place] [address] 08/23/2015 11:46:08 08/23/2015 12:26:54 Urinary tract infectious disease 90038485 N39.0 Push fluids f/u if no improvemen t in 72 hours or for fever or back pain. Health Concerns Section Related Observation LastModified by Organization Detai ls LastModified Time None Recorded Concern Status LastModified by Organization Details LastModified Time None Recorded Advance Directives Directive None Recorded Payers Encounter Date Sequence Insurance Name Policy Number Policy Sanchez Covered Member ID Sanhcez Member ID Guarantor Name 10/13/2013 1 [facility] i-drive PLAN (MEDICAID HMO) [id number] Junmaraxxeric Priest [id number] Junilixxa Priest 02/22/2014 1 [facility] Overflow [employer] [facility] PLAN (MEDICAID HMO) [id number] Junilixxa Priest [id number] Junilixxa Priest 06/06/2015 1 [facility] (MEDICAID HMO) [id number] Marla Priest [id number] Junmaraxxa Priest 06/21/2015 1 [facility] HEALTH [facility] PLAN (MEDICAID HMO) [id number] Janakilixxa Priest [id number] Junilixxa Priest 08/23/2015 1 [facility] PLAN (MEDICAID HMO) [id number] Janmaraxxa Priest [id number] Janilixxa Priest Notes Date Note Type Note Provider Name and Address Organization Details Recorded Time 10/13/2013 text/html About 1-2 months ago noted while gripping something for a while , i.e. a knife, hairbrush,, have difficulty opening right hand, not painful. Right dominant. Have a 4 month old baby--use carrier, trying to use left hand more Evelia Burris OT [address] [place] [address], [address], [facility] 10/13/2013 19:02:39 02/22/2014 text/html Patient presents to Urgent Care with 4-day duration of nasal congestion, hoarseness, frequent sneezing and generalized muscle ache. Denies F/C. Denies N/V/D. Denies cough. Denies sore throat. Also with [facility]. Lucho To MD [address] [place] [address], [phone], [facility] 02/22/2014 23:17:22 06/06/2015 text/html Physical Exam/FemaleReported bypatient.PHAPatient [...] room and availability of urgent care at [facility] Patient previously transferred care from [facility] (Dr. Jones). Here for a PHA visit. Also followed by [facility]. Uncomplicated and delivery. (2-14 years olds). Undergone BTL with her OB in 2013. Denies F/C/N/V. Denies CP/SOB/YEPEZ. Previously complained of frequent stiffening and numbness of her right hand. Symptoms occur when trying to use her hand (washing dishes or cooking). Lasting 2-3 minutes. No weakness. Normal periods. Frequent constipation during her period. Lucho To MD [address] [place] [address], [phone], [facility] 06/06/2015 09:54:46 06/21/2015 text/html Was seen in [...] legs. No bowel/bladder issues. Sindi Lopez NP [address] [place] [address], [phone], [facility] 06/25/2015 07:41:06 08/23/2015 text/html a/G-Dysuria/ur inary symptomsReported bypatient.Duration:Sym ptoms began 2 days ago Severity:Symptoms worsening(yesterday, but better today) Associated Symptoms:No blood in the urine; No abdominal pain;Burning on urination;Urinary frequency Context:Symptoms similar to previous UTI's Modifying factors:drinking alot of water.Notes:no fever Sindi Lopez NP [address] [place] [address], [phone], [facility] 08/23/2015 12:40:03 OBGyn Episode No OBEpisode recorded.
--- OUTSIDE RECORDS SUMMARY | 2024-07-20 08:02 | XMS_ITS | Encounter Summary ---
Author Organization [employer] Address [address] [place] [address] Care Team Providers Care Blood Donor Unit Assistant Name Role Phone Name, Live WHITFIELD Primary Care Provider [phone] Encounter Details Date Type Department Care Team ([facility] st Contact Info) Description 04/29/2024 Orders Only [facility] MEDICINE [address] [place] [address] Joann Sorto RN [address] [place] [address] Anemia, unspecified type Social History Tobacco Use [...] Description 07/29/2024 8:00 AM EST Office Visit [facility] ADULT DENTAL [address] [place] [address] Jose Cruz Wickpreet [address] [place] [address] documented as of this encounter Visit Diagnoses Diagnosis Anemia, unspecified type documented in this encounter Additional Health Concerns Assessment Noted Time PHQ-9 Depression Total Score: 0 06/10/19 24 9:52 AM EST documented as of this encounter Care Teams Blood Donor Unit Assistant Relationship Specialty Start Date End Date Name, MD Live [address] [place] [address] PCP - General Family Medicine 01/19/17 documented as of this encounter
--- OUTSIDE RECORDS SUMMARY | 2024-07-20 08:02 | XMS_ITS | Encounter Summary ---
Author Organization [employer] Address [address] [place] [address] Care Team Providers Care Rn Acls Name Role Phone Name, Live WHITFIELD Primary Care Provider [phone] Reason for Visit * Reason Onset Date Comments chartprep 07/12/2024 Encounter Details Date Type Department Care Team ([facility] st Contact Info) Description 07/12/2024 Telephone [facility] MEDICINE [address] [place] [address] Renée Cha MA chartprep Social History Tobacco [...] Upcoming Encounters Date Type Department Care Team ([facility] st Contact Info) Description 07/29/2024 8:00 AM EST Office Visit [facility] [address] [place] [address] Fernanda Wick [address] [place] [address] documented as of this encounter Visit Diagnoses Not on filedocumented in this encounter Additional Health Concerns Assessment Noted Time PHQ-9 Depression Total Score: 0 06/10/19 24 9:52 AM EST documented as of this encounter Care Teams Rn Acls Relationship Specialty Start Date End Date Name, MD Live [address] [place] [address] PCP - General Family Medicine 01/19/17 documented as of this encounter
--- OUTSIDE RECORDS SUMMARY | 2024-07-20 08:02 | XMS_ITS | Clinical Summary ---
Author Organization [employer] Address [address] [facility] 7t [place] [address] Care Team Providers Care Proposal Specialist Name Role Phone Name, Live WHITFIELD Primary Care Provider [phone] Allergies Active Allergy Reactions Criticality Noted Date [...] 06/03/2022 Overview (10/01/2022): 2019 Gastric sleeve at [facility] Wt prior to surgery was 2029 H/O [...] Description 07/14/2024 9:15 AM EST Office Visit [address] [address] Live Mcknight MD PE (physical exam), routine (Primary Dx); Other iron deficiency anemia 07/12/[address] [address] Renée Cha MA chartprep 07/08/2024 Orders Only GENERIC EXTERNAL DATA DEPARTMENT Provider, Generic External Data 07/07/2024 Travel 07/05/2024 Patient Outreach [address] [address] Live Mcknight MD Pre-visit Planning (Pre visit planning LVM ) 2024 10:20 AM EST Office Visit [facility] [address] [place] [address] Lucho To MD Acute conjunctivitis of left eye, unspecified acute conjunctivitis type (Primary Dx) 04/29/2024 Orders Only [address] [address] Joann Sorto, LILLY Anemia, unspecified type 04/27/2024 2:30 PM EST Office Visit [facility] [address] [place] [address] Fernanda Wick Visit for periodic health examination (Primary Dx) 04/22/2024 Orders Only [address] [address] Live Mcknight MD 04/22/2024 Orders Only [facility] [address] [place] [address] Joann Sorto, RN Anemia, unspecified type 04/20/2024 Telephone [facility] [address] [place] [address] Joann Sorto, trailhead construction worker Orders 04/19/2024 3:00 PM EST Office Visit [facility] ADULT [facility] [address] [place] [address] Jos Todd Dental calculus (Primary Dx) 04/19/2024 10:00 AM EST Office Visit [facility] [address] [place] [address] Liev Mcknight MD Obesity (BMI 30-39.9) (Primary Dx); [...] [facility] [address] [place] [address] Fernanda Wick [address] [place] [address] Health Maintenance Due Date Last Done Comments [...] Screening 07/14/2025 07/14/2024 Tobacco Screening 07/14/2025 07/14/2024 Dental X-Ray: Full Mouth 04/20/2027 024, 08/24/2020, 10/09/2016 Pap Smear 07/08/2027 07/08/2024, 06/01, 06/08/2023, Additional history exists DTaP/Tdap/Td Vaccines (3 - Td or Tdap) 02/03/2028 02/02/2018, 06/01/2013 Cervical Cancer Screening 07/08/2029 HPV/Cotest 07/08/2029 07/08/2024, 06/01, 03/27/2022, Additional history exists Lipid Panel 07/16/2029 07/16/2024, 06/01, 06/06/2022, Additional history exists Zoster Vaccines (1 of 2) 2035 RSV [...] Procedure Name Priority Date/Time Associated Diagnosis Comments LIPID PANEL, STANDARD Routine 07/16/2024 8:53 AM EST PE (physical exam), routine Other iron deficiency anemia COMPREHENSIVE METABOLIC PANEL Routine 07/16/2024 8:53 AM EST PE (physical exam), routine Other iron deficiency anemia IRON AND TOTAL IRON BINDING CAPACITY Routine 07/16/2024 8:53 AM EST PE (physical exam), routine Other iron deficiency anemia CBC WITH AUTO DIFFERENTIAL Routine 07/16/2024 8:53 AM EST PE (physical exam), routine Other iron deficiency anemia PAP SMEAR Routine 07/08/2024 11:31 AM EST HPV DNA, LOW/HIGH RISK Routine 11:31 AM EST COMPREHENSIVE PERIODONTAL EVALUATION - NEW [...] EST Need for hepatitis C screening test from Last 3 Months or Most Recently Relevant to Health Maintenance Results * (ABNORMAL) CBC auto differential (07/16/2024 8:53 AM EST) Only the most recent of2 resultswithin the time period is included. White Blood Count 7.7 4.8 - 10.8 X10*3/uL [facility] Red Blood Count 5.23 4.20 - 5.50 X10*6/uL [facility] Hemoglobin 11.6(L) 12.0 - 16.0 g/dl [facility] Hematocrit 36.5(L) 37.0 - 47.0 % [facility] Mean Corpuscular Volume 69.8(L) 80.0 - 98.0 fL [facility] Mean Corpuscular Hemoglobin 22.2(L) 27.0 - 33.0 pg [facility] Mean Corpuscular HGB Conc 31.8 31.0 - 35.0 g/dl [facility] Red Cell Distribution Width 20.1(H) 11.0 - 16.0 % [facility] Platelet Count 277 160 - 400 X10*3/uL [facility] Mean Platelet Volume 10.5 9.4 - 12.3 fL [facility] Neutrophils Percent Auto 56.9 45 - 73 % [facility] Imm Gran Pct Auto 0.3 0.0 - 0.4 % [facility] Lymphocytes Percent Auto 31.2 20 - 40 % [facility] Monocytes Percent Auto 8.3 2 - 11 % [facility] Eosinophils Percent Auto 2.8 0 - 4 % [facility] Basophils Percent Auto 0.5 0 - 2 % [facility] NRBC Pct Auto 0.0 0.0 - 0.2 /100WBC [facility] Neutrophils Absolute Auto 4.4 2.0 - 8.3 x10*3/uL [facility] Imm Gran Abs Auto 0.02 0.00 - 0.03 X10*3/uL [facility] Lymphocytes Absolute Auto 2.4 1.2 - 4.9 X10*3/uL [facility] Monocytes Absolute Auto 0.6 0.1 - 1.2 X10*3/uL [facility] Eosinophils Absolute Auto 0.2 0.0 - 0.4 X10*3/uL [facility] Basophils Absolute Auto 0.0 0.0 - 0.2 X10*3/uL [facility] NRBC Abs Auto 0.000 0.0 - 0.012 X10*3/uL [facility] Blood Venous blood specimen / Unknown 07/16/2024 8:53 AM EST 07/16/2024 8:53 AM EST us Live Mcknight MD LAB BLOOD ORDERABLES Final Resul t [facility] [address] [place] [address] [phone] * (ABNORMAL) Iron And Total Iron Binding Capacity (07/16/2024 8:53 AM EST) Only the most recent of2 resultswithin the time period is included. Iron 32 30 - 160 mcg/dL [facility] Total Iron Binding Capacity 338 228 - 428 mcg/dL [facility] Percent Iron Saturation 9(L) 15 - 50 % [facility] Unsaturated Iron Binding 306 ug/dL [facility] Blood Venous blood specimen / Unknown 07/16/2024 8:53 AM EST 07/16/2024 8:53 AM EST us Live Name MD LAB BLOOD ORDERABLES Final Resul t [facility] [address] [place] [phone] * Lipid Panel, Standard (07/16/2024 8:53 AM EST) Triglycerides 64 <150 mg/dL [facility] Comment:Desirable Triglyceri de: less than 150 mg/dLBorderline High Triglyceride 150-199 mg/dLHigh Triglyceride: 200-499 mg/dLVery High Triglyceride: greater than or equal to 5OO mg/dL Cholesterol 142 <200 mg/dL [facility] Comment:Desirable Cholestero l: less than 200 mg/dLBorderline High Cholesterol: 200-239 mg/dLHigh Cholesterol: greater than 239 mg/dL LDL Cholesterol Calculated 77 <100 mg/dL [facility] Comment:Desirable LDL: less than 100 mg/dLNear Optimal/Above Optimal LDL: 110- 129 mg/dLBorderline High LDL: 130-159 mg/dLHigh LDL: 160-189 mg/dLVery High LDL: greater than or equal to 190 mg/dL HDL Cholesterol 53 >40 mg/dL [facility] Comment:Desirable HDL: great er than 40 mg/dL Note: This HDL assay may give artificially low results in patients with liver disease. Blood Venous blood specimen / Unknown 07/16/2024 8:53 AM EST 07/16/2024 8:53 AM EST us Live Mcknight MD LAB BLOOD ORDERABLES Final Resul t [facility] [address] [place] [address] [phone] * (ABNORMAL) Comprehensive Metabolic Panel (07/16/2024 8:53 AM EST) Sodium 142 135 - 145 mmol/L [facility] Potassium 4.0 3.3 - 5.1 mmol/L [facility] Chloride 110(H) 96 - 108 mmol/L [facility] Carbon Dioxide 26 22 - 29 mmol/L [facility] Anion Gap 10(L) 12 - 20 [facility] Urea Nitrogen (BUN) 8(L) 9 - 16 mg/dL [facility] Creatinine, Serum 0.70 0.5 - 1.4 mg/dL [facility] Estimated Glomerular Filt Rate >60 [facility] Comment:Chronic Kidney Disea se: Estimated GFR < 60 mL/min/1.31m1Srzjew Kidney Disease: Estimated GFR < 15 mL/min/1.73m2 Glucose 85 60 - 115 mg/dL [facility] Calcium 9.2 8.4 - 10.2 mg/dL [facility] Bilirubin, Total 0.7 0.0 - 1.0 mg/dL [facility] Aspartate Amino Transferase 21 5 - 31 U/L [facility] Alanine Aminotransferase 15 0 - 31 U/L [facility] Total Protein 7.4 6.5 - 8.0 g/dL [facility] Albumin Level 4.0 3.5 - 5.0 g/dL [facility] Alkaline Phosphatase 76 39 - 117 U/L [facility] Blood Venous blood specimen / Unknown 07/16/2024 8:53 AM EST 07/16/2024 8:53 AM EST us Live Mcknight MD LAB BLOOD ORDERABLES Final Resul t Performing Organization Address [facility] Co de Phone Number [facility] [address] [place] [phone] * (ABNORMAL) HPV DNA, Low/High Risk (07/08/2024 11:31 AM EST) HPV High Risk Positive(A) Negative [facility] HPV Genotype 16 Negative Negative [facility] HPV Genotype 18 Negative Negative [facility] Comment:HPV testing performe d at [facility] (CLIA#[id number]), [address] [place] [address].Testing for HPV was performed using the [employer] YSABEL 6800system. The presence of HPV in the female genital tract isassociated with a number of diseases, including cervicalcarcinoma. The HPV DNA high risk pool tests for HPV 31, 33,35, 39, 45, 51, 52, 56, 58, 59, 66 and 68. The testing forHPV 16 and 18 genotypes has also been performed. A positiveresult indicates detection of nucleic acid sequences fromone or more subtypes, whereas a negative result indicatessuch sequences were not detected. 07/08/2024 11:3 1 AM EST 07/11/2024 8:20 AM EST Narrative [facility] - 07/18/2024 9:10 AM EST Generic External Data Provider LAB BLOOD ORDERAB LES Final Result Performing Organization Address [facility] Co de Phone Number [facility] [address] [place] [phone] * Pap Smear (07/08/2024 11:31 AM EST) 07/08/2024 11:3 1 AM EST 07/11/2024 8:20 AM EST Narrative [facility] - 07/19/2024 10:20 AM EST ----- ------- Name: Veronika Aleman ? Age/Sex: 39/F ? : 1985 Unit#: [id number] ?? Attend Dr: Quinton Eduardo MD ?Re07/08/24 ?Status: DEP REF ? Location: HO.LNP ?Disch: ? ----- ------- SPEC : [id number] ? RECD: 07/11/24 ? STATUS: ??SOUT ? REQ NUM: [id number] ? BRUCE: 07/08/24 ? SUBM DR: Quinton Eduardo MD ? ENTERED: ??07/11/24 ?SP TYPE: Pap Smr ?OTHR DR: Live Mcknight MD ? ORDERED: ??Pap Smear, PAP path review ? Interpretation ?? General Category: ?? Epithelial cell abnormality. ?? Adequacy: ?Endocervical component present. ?? Interpretation: ?Atypical squamous cells of undetermined significance (rare). ? HPV High Risk: ??Positive ? HPV Genotyping 16: ??Negative ?? HPV Genotyping 18: ??Negative ?Clinical Information LMP: 07/05/2024 Previous PAP test: 06/10/2023, DANIEL 2 ? Material Received ?? ThinPrep-Cervical Copies To: ?? Name,Live WHITFIELD ?? [address] [facility] ?? [place] [address] ?? [phone] ?? Quinton Eduardo MD ?? [facility] Women's Services ?? [address] [facility] [address] ?? [place] [address] ?? [phone] ----- ------- Signed (signature on file) Jessica Lopes 07/19/24 1020 ? ----- ------- ? END OF REPORT ? Generic External Data Provider LAB CYTOLOGY ORDE RABSARA Final Result [facility] [address] [place] [phone] [phone] * Client Education Tracking (04/22/2024 12:00 AM EST) Client Education Tracking [employer] [facility] [employer] [facility] Comment: The Requisition we received did not include a [employer] account number. To prevent delays in testing and processing of your orders please provide the following information with every order submitted: [facility] account number and account name Client address Client phone and fax number NPI number of ordering physician along with the physician name. 04/22/2024 04/29/2024 7:5 0 AM EST Narrative [facility] - 04/30/2024 3:09 PM EST FASTING: UNKNOWN Live Name LAB BLOOD BANK TEST ORDERABLES F inal Result Performing Organization Address [facility] Co de Phone Number [facility] [address], [place] [address] [employer] [facility] [address] [place] [address] * Fecal Globin by Immunochemistry (04/22/2024 12:00 AM EST) Pathologist [facility] Fecal Globin By Immunochemistry SEE NOTE [employer] [place] [employer] Comment: ??FECAL GLOBIN BY IMMUNOCHEMISTRY ?Micro Number: ?[id number] ??Test Status: ? Final ??Specimen Source: ?? Insure (tm) fobt test card ??Specimen Quality: ??Adequate ??Fecal Globin: ?Not Detected 04/22/2024 04/29/2024 7:5 0 AM EST Narrative [facility] - 04/30/2024 3:09 PM EST FASTING: UNKNOWN Live Mcknight MD LAB BODY FLUIDS AND STOOLS ORDER ALYSSA Final Result Performing Organization Address City/[facility]/ZIP Co de Phone Number [facility] [address], [place] [address] [employer] [facility] [address] [place] [phone] * (ABNORMAL) Ferritin (04/19/2024 11:02 AM EST) Ferritin 9(L) 10 - 122 ng/mL [facility] Blood Venous blood specimen / Unknown 04/19/2024 11:02 AM EST 04/19/2024 1:08 PM EST Live Mcknight MD LAB BLOOD ORDERABLES Final Resul t Performing Organization Address [facility] Co de Phone Number [facility] [address] [place] [address] [phone] * Hepatitis C Antibody with Reflex to HCV, RNA, Quantitative, Real-Time PCR (06/13/2023 9:43 AM EST) Pathologist [facility] Hepatitis C Antibody Nonreactive Nonreactive [facility] Comment:Antibodies to HCV no t detected; does not exclude early acuteHCV infection. Blood Venous blood specimen / Unknown 06/13/2023 9:43 AM EST 06/13/2023 9:43 AM EST Live Mcknight MD LAB BLOOD ORDERABLES Final Resul t Performing Organization Address [facility]/ZIP Co de Phone Number [facility] [address] [place] [address] [phone] from Last 3 Months or Most Recently Relevant to Health Maintenance Insurance Member Subscriber Plan / Payer (Ef fective 2022-Present) Name:Veronika Aleman Relation to Subscriber:Self Name:Veronika Aleman Payer ID:Not on file Group ID:Not on file Type:Medicaid Address: [address] [place] [address] [place] [address] , [address] [place] [address] [facility] MEDICAID [place] [id number] [place] [address] [place] [address] [place] [address] [place] [address] Care Teams Proposal Specialist Relationship Specialty Start Date End Date Name, MD Live [address] [place] [address] [place] [address] PCP - General Family Medicine 01/19/17
--- OUTSIDE RECORDS SUMMARY | 2024-07-20 08:02 | XMS_ITS | Encounter Summary ---
Author Organization [employer] Address [address] [facility] [address] [place] [address] Care Team Providers Care Agronomy Research Manager Name Role Phone Name, Live WHITFIELD Primary Care Provider [phone] Encounter Details Date Type Department Care Team ([facility] st Contact Info) Description 04/22/2024 Orders Only [facility] [address] [place] [address] Joann Sorto RN [address] [place] [address] Anemia, unspecified type Social History Tobacco Use [...] Description 07/29/2024 8:00 AM EST Office Visit [facility]ULT [facility] [address] [place] [address] Jose Cruz Wickpreet [address] [place] [address] documented as of this encounter Visit Diagnoses Diagnosis Anemia, unspecified type documented in this encounter Additional Health Concerns Assessment Noted Time PHQ-9 Depression Total Score: 0 06/10/19 24 9:52 AM EST documented as of this encounter Care Teams Agronomy Research Manager Relationship Specialty Start Date End Date Name, MD Live [address] [place] [address] PCP - General Family Medicine 01/19/17 documented as of this encounter
--- OUTSIDE RECORDS SUMMARY | 2024-07-20 08:02 | XMS_ITS | Encounter Summary ---
Author Organization [employer] Address [address] [facility] [address] [place] [address] Care Team Providers Care Regulatory Services Consultant Name Role Phone Name, Live WHITFIELD Primary Care Provider [phone] Encounter Details Date Type Department Care Team ([facility] st Contact Info) Description 04/10/2023 Abstract [facility] ADULT [facility] [address] [place] [address] Fortino Self DDS [address] [place] [address] Social History Tobacco Use Types Packs/Day Years [...] 8:00 AM EST Office Visit [facility] [address] [place] [address] Fernanda Wick [address] [place] [address] documented as of this encounter Visit Diagnoses Not on filedocumented in this encounter Care Teams Regulatory Services Consultant Relationship Specialty Start Date End Date Name, MD Live [address] [place] [address] PCP - General Family Medicine 01/19/17 documented as of this encounter
--- NOTE | 2024-07-20 08:03 | MHC.OFFVIS ---
Intake Visit Reasons: Colposcopy Silver Holloware Assembler Required: Yes Silver Holloware Assembler Language: Reed Worker Services: Silver [employer]are Assembler Present (in person) Silver Holloware Assembler Name: Hermelinda SILVA Information Interpreted: non-clinical & clinical Supervisor Acoustical Tile Carpenters: Supervisor Acoustical Tile Carpenters Present (Hermelinda SILVA) Accompanied by: Self / Same As Patient Allergies No Known Allergies [No Known Allergies*] Allergy (Verified 07/20/24 08:04) Is last menstrual period known: Yes Last menstrual period: 07/05/24 HPI Comments Details: Presenting for abnormal Pap smear showing ascus/HPV positive, HPV 16/18 negative [facility] Medical History DANIEL II (cervical intraepithelial neoplasia II) COVID-19 vaccine series completed History of COVID-19 Mild acid reflux Migraine without aura LGSIL on Pap smear of cervix Surgical History History of sleeve gastrectomy H/O tubal ligation Hx of colposcopy with cervical biopsy Hx of cholecystectomy Family History Father Diabetes Mother CVD (cardiovascular disease) Arthritis Social History Are you a primary healthcare marketer to a significant other at home: No Do you presently have visiting nurse or other home services: No Alcohol intake: never Patient Tobacco Use Status: Never used Tobacco Sexual orientation: Straight/Heterosexual Gender identity: Female Female Reproductive History Menstrual Date of last menstrual period: 07/05/24 control method: permanent sterilization Review of Systems Const All systems reviewed & are unremarkable except as noted in HPI and below Reports as per HPI and Reports no additional complaints GI Reports no additional complaints Reports no additional complaints Office Procedures Colposcopy Colposcopy: Pre-Procedure Counseling: Before beginning the procedure, I conducted comprehensive counseling with the patient. We thoroughly discussed the procedure itself, including its details, alternatives, and all associated risks. This included but not limited to the following complications such as bleeding, infection, and injury to the vagina, bladder, and vessels, as well as the potential need for transfusion with all its associated risks. Subsequently, the patient sign the consent. Pap smear result: Ascus HPV high-risk positive, HPV 16/18 negative. Procedure: During the procedure, the following steps were performed: A speculum was inserted, and acetic acid was applied. Colposcopy was conducted, allowing visualization of the transformation zone. Acetowhite lesions were identified at the 11+ 1+3 o'clock position. Cervical biopsies were obtained from the 11+ 1+3 o'clock position, followed by an endocervical curettage (ECC). Vaginoscopy of the upper vagina revealed no evidence of aceto-white lesions. Hemostasis was achieved using Monsel solution, and the patient tolerated the procedure well. Post-Procedure Instructions: The patient was advised to promptly contact the office or the after hours answering service or go to the emergency room if experiencing a temperature exceeding 100.4?F, abdominal pain, nausea/vomiting, or bleeding. Additionally, the patient was instructed to abstain from vaginal intercourse and bathtub use. The patient confirmed understanding of these instructions. Discharge Instructions: The patient was instructed to schedule a follow-up appointment in 2 weeks for further evaluation and management. Please note that this note was generated using a voice recognition program, and errors may have occurred during drill punch operator. [id number] of cervix including upper vagina with biopsy and ECC Procedure code (CPT) selection complete Results AMB Test Urine AMB Test Urine Negative Last Edit by Hermelinda Dahl CMA on 07/20/24 08:16 Assessment & Plan Assessment & Plan (1) ASCUS with positive high risk HPV cervical: Comment: HPV 16/18 negative Code(s): R87.610 - Atypical squamous cells of undetermined significance on cytologic smear of cervix (ASC-US); R87.810 - Cervical high risk human papillomavirus (HPV) DNA test positive Category: Medical Plan: Discussed with the patient the result of her abnormal pap, its significance, risk of progression, persistence, and regression. the false positive/negative rate of a Pap smear as a screening test in detecting cervical cancer and the indication for a diagnostic test -colposcopy, biopsy, endocervical curettage. The patient verbalized understanding and agreed with the plan, all questions answered. Colposcopy/biopsy/ECC done, see procedure note Orders: Orders AMB HCG Urine Test Today Z32.02 - Encounter for test, result negative AMB Colposcopy Today R87.610 - Atypical squamous cells of undetermined significance on cytologic smear of cervix (ASC-US), R87.810 - Cervical high risk human papillomavirus (HPV) DNA test positive Coding Level of Care Code Procedure Only Diagnoses ASCUS with positive high risk HPV cervical R87.610; R87.810 CPT Codes Colposcopy - CPT: 08892-Nqqytspep of cervix including upper vagina with biopsy and ECC ([id number])
--- OUTSIDE RECORDS SUMMARY | 2024-07-20 08:03 | XMS_ITS | Encounter Summary ---
Author Organization [employer] Address [address] [facility] 7t [place] [address] Care Team Providers Care Nurse Assessor Name Role Phone Name, Live WHITFIELD Primary Care Provider [phone] Reason for Visit * Reason Onset Date Comments Med Refill 10/06/2023 Encounter Details Date Type Department Care Team ([facility] st Contact Info) Description 10/06/2023 Refill [facility] [address] [place], [place] [phone] Name, MD Live [address] [place] [address] Social History Tobacco Use Types Packs/Day Years [...] 8:00 AM EST Office Visit [facility] ADULT DENTAL [address] [place] [address] Fernanda Wick [address] [place] [address] documented as of this encounter Visit Diagnoses Not on filedocumented in this encounter Additional Health Concerns Assessment Noted Time PHQ-9 Depression Total Score: 0 06/10/19 24 9:52 AM EST documented as of this encounter Care Teams Nurse Assessor Relationship Specialty Start Date End Date Name, MD Live [address] [place] [address] PCP - General Family Medicine 01/19/17 documented as of this encounter
--- OUTSIDE RECORDS SUMMARY | 2024-07-20 08:03 | XMS_ITS | Encounter Summary ---
Author Organization [employer] Address [address] [facility] [address]t [place] [address] Care Team Providers Care Repair Weaver Name Role Phone Name, Live WHITFIELD Primary Care Provider [phone] Reason for Visit * Reason Onset Date Comments Med Refill 08/18/2023 Encounter Details Date Type Department Care Team ([facility] st Contact Info) Description 08/18/[address] [facility] [address] [place] [phone] Name, MD Live [address] [place] [address] Social History Tobacco Use Types Packs/Day Years [...] 07/29/2024 8:00 AM EST Office Visit [facility] ADULT [facility] [address] [place] [address] Fernanda Wick [address] [place] [address] documented as of this encounter Visit Diagnoses Not on filedocumented in this encounter Additional Health Concerns Assessment Noted Time PHQ-9 Depression Total Score: 0 06/10/19 24 9:52 AM EST documented as of this encounter Care Teams Repair Weaver Relationship Specialty Start Date End Date Name, MD Live [address] [place] [address] PCP - General Family Medicine 01/19/17 documented as of this encounter
--- OUTSIDE RECORDS SUMMARY | 2024-07-20 08:03 | XMS_ITS | Encounter Summary ---
Author Organization [employer] [facility] Address [address] [place] [address] 7 [place] [address] Care Team Providers Care Tax Compliance Agent Name Role Phone Name, Live WHITFIELD Primary Care Provider [phone] Encounter Details Date Type Department Care Team (Latest Contact Info) Description 07/14/[address] [facility] CONVERSIONS Dental, Provider, DDS Social History [...] Description 07/29/2024 8:00 AM EST Office Visit [facility] ADULT DENTAL [address] [place] [address] WickTanja mendesanpreet [address] [place] [address] documented as of this encounter Visit Diagnoses Not on filedocumented in this encounter Care Teams Tax Compliance Agent Relationship Specialty Start Date End Date Name, MD Live [address] [place] [address] PCP - General Family Medicine 01/19/17 documented as of this encounter
--- OUTSIDE RECORDS SUMMARY | 2024-07-20 08:03 | XMS_ITS | Encounter Summary ---
Author Organization [facility] Address [address] [place] [address] Care Team Providers Care City Sanitarian Name Role Phone Name, Live WHITFIELD Primary Care Provider [phone] Encounter Details Date Type Department Care Team (Late st Contact Info) Description 07/08/2024 Orders Only GENERIC EXTERNAL DATA DEPARTMENT Provider, Generic External Data Social History Tobacco Use Types Packs/Day Years [...] 8:00 AM EST Office Visit [facility] [address] [place] [address] Jose Cruz Wickpreet [address] [place] [address] documented as of this encounter Procedures Procedure Name Priority Date/Time Associated Diagnosis Comments HPV DNA, LOW/HIGH RISK Routine 07/08/2024 11:31 AM EST PAP SMEAR Routine 07/08/2024 11:31 AM EST documented in this encounter Results * Pap Smear (07/08/2024 11:31 AM EST) 07/08/2024 11:3 1 AM EST 07/11/2024 8:20 AM EST Narrative [facility] - 07/19/2024 10:20 AM EST ----- ------- Name: Ash,Janaklupe ? Age/Sex: 39/F ? : 1985 Unit#: [id number] ?? Attend Dr: Quinton Eduardo MD ?Re07/08/24 ?Status: DEP REF ? Location: HO.LNP ?Disch: ? ----- ------- SPEC : [id number] ? RECD: 07/11/24 ? STATUS: ??SOUT ? REQ NUM: [id number] ? BRUCE: 07/08/24 ? SUBM DR: Quinton Eduardo MD ? ENTERED: ??07/11/24 ?SP TYPE: Pap Smr ?OTHR DR: NameLive MD ? ORDERED: ??Pap Smear, PAP path [...] Copies To: ?? Name,Live WHITFIELD ?? [address] ?? [place] [address] ?? [phone] ?? Quinton Eduardo MD ?? [facility] [place] [address] ?? [place] [address] ?? [phone] ----- ------- Signed (signature on file) Jessica Lopes 07/19/240 ? ----- ------- ? END OF REPORT ? Generic External Data Provider LAB CYTOLOGY ORDE RABLES Final Result Performing Organization Address [facility] Co de Phone Number [facility] [address] [place] [address] [phone] * (ABNORMAL) HPV DNA, Low/High Risk (07/08/2024 11:31 AM EST) HPV High Risk Positive(A) Negative [facility] HPV Genotype 16 Negative Negative [facility] HPV Genotype 18 Negative Negative [facility] Comment:HPV testing performe d at [facility] (CLIA#[id number]), [address] [place] [address].Testing for HPV was performed using the [employer]system. The presence of HPV in the female [...] AM EST 07/11/2024 8:20 AM EST Narrative [facility] - 07/18/2024 9:10 AM EST Generic External Data Provider LAB BLOOD ORDERAB LES Final Result Performing Organization Address [facility]/ZIP Co de Phone Number [facility] [address] [place] [address] [phone] documented in this encounter Visit Diagnoses Not on filedocumented in this encounter Additional Health Concerns Assessment Noted Time PHQ-9 Depression Total Score: 0 06/10/19 24 9:52 AM EST documented as of this encounter Care Teams City Sanitarian Relationship Specialty Start Date End Date Name, MD Live [address] [place] [phone] PCP - General Family Medicine 01/19/17 documented as of this encounter
--- OUTSIDE RECORDS SUMMARY | 2024-07-20 08:03 | XMS_ITS | Encounter Summary ---
Author Organization [facility] Address [address] [place] [address] 7 [place] [address] Care Team Providers Care Leasing Specialist Name Role Phone Name, Live WHITFIELD Primary Care Provider [phone] Encounter Details Date Type Department Care Team (Latest Contact Info) Description 07/19/2019 Abstract [facility] CONVERSIONS Dental, Provider, DDS Social History [...] 8:00 AM EST Office Visit [facility] [address] [place] [address] WickTanja mendesanpreet [address] [place] [address] documented as of this encounter Visit Diagnoses Not on filedocumented in this encounter Care Teams Leasing Specialist Relationship Specialty Start Date End Date Name, MD Live [address] [place] [address] PCP - General Family Medicine 01/19/17 documented as of this encounter
--- OUTSIDE RECORDS SUMMARY | 2024-07-20 08:03 | XMS_ITS | Encounter Summary ---
Author Organization [facility] Address [address] [facility] 7[address] [place] [address] Care Team Providers Care Hydraulic Mechanic Name Role Phone Name, Live WHITFIELD Primary Care Provider [phone] Reason for Visit * Reason Onset Date Comments Med Refill 08/18/2023 Encounter Details Date Type Department Care Team ([facility] st Contact Info) Description 08/18/2023 Refill [facility] MEDICINE [address] [place] [phone] Name, MD Live [address] [place] [address] Social History Tobacco Use Types Packs/Day Years [...] [facility] [address] [place] [address] Fernanda Wick [address] [place] [address] documented as of this encounter Visit Diagnoses Not on filedocumented in this encounter Additional Health Concerns Assessment Noted Time PHQ-9 Depression Total Score: 0 06/10/19 24 9:52 AM EST documented as of this encounter Care Teams Hydraulic Mechanic Relationship Specialty Start Date End Date Name, MD Live [address] [place] [address] PCP - General Family Medicine 01/19/17 documented as of this encounter
--- OUTSIDE RECORDS SUMMARY | 2024-07-20 08:03 | XMS_ITS | Encounter Summary ---
Author Organization [facility] Address [address] [place] [address] 7 [place] [address] Care Team Providers Care Four H Agent Name Role Phone Name, Live WHITFIELD Primary Care Provider [phone] Encounter Details Date Type Department Care Team (Latest Contact Info) Description 08/24/2020 Abstract [facility] CONVERSIONS Dental, Provider, DDS Social [...] 8:00 AM EST Office Visit [facility] [address] [place] [address] WickTanja mendesanpreet [address] [place] [address] documented as of this encounter Visit Diagnoses Not on filedocumented in this encounter Care Teams Four H Agent Relationship Specialty Start Date End Date Name, MD Live [address] [place] [address] PCP - General Family Medicine 01/19/17 documented as of this encounter
--- OUTSIDE RECORDS SUMMARY | 2024-07-20 08:03 | XMS_ITS | Encounter Summary ---
Author Organization [facility] Address [address] [facility] [address]t [place] [address] Care Team Providers Care School Photograph Editor Name Role Phone Name, Live WHITFIELD Primary Care Provider [phone] Reason for Visit * Reason Onset Date Comments Med Refill 10/13/2023 Encounter Details Date Type Department Care Team ([facility] st Contact Info) Description 10/13/2023 Refill [facility] MED[facility]INE [address] [place] [address] Name, MD Live [address] [place] [address] Social History Tobacco Use Types Packs/Day Years [...] Office Visit [facility] [address] [place] [address] Fernanda Wick [address] [place] [address] documented as of this encounter Visit Diagnoses Not on filedocumented in this encounter Additional Health Concerns Assessment Noted Time PHQ-9 Depression Total Score: 0 06/10/19 24 9:52 AM EST documented as of this encounter Care Teams School Photograph Editor Relationship Specialty Start Date End Date Name, MD Live [address] [place] [address] PCP - General Family Medicine 01/19/17 documented as of this encounter
--- OUTSIDE RECORDS SUMMARY | 2024-07-20 08:03 | XMS_ITS | Encounter Summary ---
Author Organization [facility] Address [address] [facility] 7t [place] [address] Care Team Providers Care Parking Lot Chauffeur Name Role Phone Name, Live WHITFIELD Primary Care Provider [phone] Reason for Visit * Reason Onset Date Comments Lorene TORIBIO 10/15/2023 Encounter Details Date Type Department Care Team ([facility] st Contact Info) Description 10/15/2023 Telephone [facility] MEDICINE [address] [place] [address] Name, MD Live [address] [place] [address] Lorene TORIBIO Social History Tobacco Use Types [...] - 10/15/2023 4:35 PM EDT [facility] calling to inform medication Wegovy has been denied by insurance. documented in this encounter Plan of Treatment Upcoming Encounters Date Type Department Care Team (Late st Contact Info) Description 07/29/2024 8:00 AM EST Office Visit [facility]ULT [facility] [address] [place] [address] Jose Cruz Wickpreet [address] [place] [address] documented as of this encounter Visit Diagnoses Not on filedocumented in this encounter Additional Health Concerns Assessment Noted Time PHQ-9 Depression Total Score: 0 06/10/19 24 9:52 AM EST documented as of this encounter Care Teams Parking Lot Chauffeur Relationship Specialty Start Date End Date Name, MD Live [address] [place] [address] PCP - General Family Medicine 01/19/17 documented as of this encounter
== END 2024-07-20 08:36 | disposition home or self-care (01) ==
LOC: HO.HWS 07:55
PROVIDERS: PCP Internal Medicine Geriatric Medicine; Visit Provider Obstetrics & Gynecology
DX: R87.610 Atypical squamous cells of undetermined significance on cytologic smear of cervix (ASC-US) (principal); R87.810 Cervical high risk human papillomavirus (HPV) DNA test positive; Z32.02 Encounter for pregnancy test, result negative
CPT/HCPCS: 57454

== ENCOUNTER 2024-08-16 07:34 | Outpatient (AMB) | payer OTHER, MEDICAID, SELFPAY ==
[2024-08-16 07:45] VITALS: BMI 37.3
--- NOTE | 2024-08-16 07:45 | A.OFFVIS_ITS ---
Vital Signs 08/16/24 07:45 Height 5 ft 2 in Weight 204 lb BMI 37.3 Intake Visit Reasons: Colpo Results [place] Required: No Information Interpreted: non-clinical & clinical Accompanied by: Self / Same As Patient Allergies No Known Allergies [No Known Allergies*] Allergy (Verified 08/16/24 07:46) HPI Comments Details: Presenting post colpo for follow-up. The patient is doing well with no complaints. The pathology showed the following: A. Endocervix, curettage: Squamous and endocervical glandular mucosa; negative for dysplasia, and fragments of benign proliferative endometrium/lower uterine segment. B. Cervix, 1:00, biopsy: Squamous mucosa; negative for dysplasia; no endocervical glandular component present. C. Cervix, 3:00, biopsy: Squamous mucosa; negative for dysplasia; no endocervical glandular component present. D. Cervix, 11:00, biopsy: Squamous and endocervical glandular mucosa; negative for dysplasia [facility] Medical History DANIEL II (cervical intraepithelial neoplasia II) COVID-19 vaccine series completed History of COVID-19 Mild acid reflux Migraine without aura LGSIL on Pap smear of cervix Surgical History History of sleeve gastrectomy H/O tubal ligation Hx of colposcopy with cervical biopsy Hx of cholecystectomy Family History Father Diabetes Mother CVD (cardiovascular disease) Arthritis Social History Are you a primary direct support professional caregiver to a significant other at home: No Do you presently have visiting nurse or other home services: No Alcohol intake: never Patient Tobacco Use Status: Never used Tobacco Sexual orientation: Straight/Heterosexual Gender identity: Female Review of Systems Const All systems reviewed & are unremarkable except as noted in HPI and below Reports as per HPI and Reports no additional complaints GI Reports no additional complaints Reports no additional complaints Physical Exam Vital Signs: BMI result Body Mass Index 37.3 Assessment & Plan Assessment & Plan (1) ASCUS with positive high risk HPV cervical: Comment: HPV 16/18 negative Code(s): R87.610 - Atypical squamous cells of undetermined significance on cytologic smear of cervix (ASC-US); R87.810 - Cervical high risk human papillomavirus (HPV) DNA test positive Category: Medical Plan: Discussed with the patient the pathology results of the colposcopy biopsies & endocervical curettage ( negative). Discussed with the patient the sensitivity specificity, positive and negative predictive value in detecting cervical cancer in addition discussed the regression, persistence and progression rates. Recommended co-testing in 12 months, if cytology and or HPV are abnormal will proceed was colposcopy biopsy and endocervical curettage. Instructions given to the patient to schedule a co test appointment in 1 year. All questions answered the patient verbalized understanding. Coding Level of Care Code Est Pt Level 3 (62059) Diagnoses ASCUS with positive high risk HPV cervical R87.610; R87.810
== END 2024-08-16 08:09 | disposition home or self-care (01) ==
LOC: HO.HWS 07:34
PROVIDERS: PCP Internal Medicine Geriatric Medicine; Visit Provider Obstetrics & Gynecology
DX: R87.610 Atypical squamous cells of undetermined significance on cytologic smear of cervix (ASC-US) (principal); R87.810 Cervical high risk human papillomavirus (HPV) DNA test positive
CPT/HCPCS: 99213

== ENCOUNTER → 2024-08-16 07:34 | Outpatient (BNVA) | payer OTHER, MEDICAID, SELFPAY | PROVIDERS: PCP Internal Medicine Geriatric Medicine; Visit Provider Obstetrics & Gynecology ==